=== PATIENT | male | born 1930 | race Caucasian/White ===

== ENCOUNTER 2018-03-06 17:56 | Inpatient (IN) | payer MEDICARE, OTHER ==
[~2018-03-06] VITALS: Ht 170.2 cm; Wt 81.2 kg
--- NOTE | 2018-03-06 17:35 | NUR ---
Admission Note with Justification for Admission to [facility] Patient admitted to [facility] for protective oversight for emergency stabilization of acute psychiatric crisis. Pt admitted from: Hospital ER Mode of arrival: EMS Accompanied By: EMS Precipitating behaviors that initiated intake and admission:hallucinations, confusion Description of failure of out patient attempts at stabilization in previous setting list behavior and medication trials: unknown Behaviors and assessment findings upon admission: calm compliant Plan: Admit for protective oversight for adjustment and stabilization of medications, behaviors and mood. Intense treatment regimen including groups, medication adjustments, therapy, consistent regimen for ADL's, self care, and sleep hygiene. Daily monitoring by Inpatient staff, Psychiatry, and Medical Physician.
[2018-03-06 18:31] VITALS: BP 103/64
[2018-03-06] MEDS ORDERED: OMEP20TA63 PO (19:56)
[2018-03-06] MEDS ORDERED: ASPI-630 PO (19:56)
[2018-03-06] MEDS ORDERED: DONE10TA61 PO (19:56)
[2018-03-06] MEDS ORDERED: ATOR40TA PO (19:56)
[2018-03-06] MEDS ORDERED: CHOL10003 PO (19:56)
[2018-03-06] MEDS ORDERED: QUET25TA5 PO (19:56)
[2018-03-06] MEDS ORDERED: VIT1TABL32 PO (19:56)
[2018-03-06] MEDS ORDERED: VIT1TABL8 PO (19:56)
[2018-03-06] MEDS ORDERED: POTA99TA3 PO (19:56)
[2018-03-06] MEDS ORDERED: CALC500T30 PO (19:56)
[2018-03-06] MEDS ORDERED: LEXAPRO5 MG PO (19:56)
[2018-03-06] MEDS ORDERED: CAPT12.52 PO (19:56)
[2018-03-06] MEDS ORDERED: FERR325T14 PO (19:56)
[2018-03-06] MEDS ORDERED: TIOT18CA IH (19:56)
[2018-03-06] MEDS ORDERED: ESOM40CA PO (19:56)
[2018-03-06] MEDS ORDERED: SPIR25TA5 PO (19:56)
--- NOTE | 2018-03-06 20:01 | HP ---
ADMIT DATE: 03/06/2018 PSYCHIATRIC ADMISSION HISTORY/EVALUATION IDENTIFYING DATA: The patient is an 87-year-old male referred to us from the Emergency Room at [facility] after he presented there from his independent living at [place] on account of increasing confusion, being agitated. Reportedly, he had walked outside. There is independent living apartment close to the street, was delusional, thinks he had to get to the street to get into transportation tube to get to [facility] at [facility]. He is difficult to redirect, has been noncompliant with his medication. Confusion has been worsening in the evening. His behaviors have been deemed dangerous, unmanageable at the [facility], referred to the Emergency Room at [facility] and then sent to us for inpatient psychiatric stabilization. CHIEF COMPLAINT: "I came here today. Yes, I had to get to [facility]." HISTORY OF PRESENT ILLNESS: The patient has a history of sundowning with worsening confusion, more so in the evening. He seems to do a little better during the day. He has had some sleep and appetite changes, but the real concerns of safety involved when he walked to the street, looking for transportation module to transport him to [facility]. No active suicidal or homicidal ideation. No clear history of bipolar disorder. The patient also reports having "violent hallucinations and thinks the mafia is after him." PAST PSYCHIATRIC HISTORY: As above. PAST MEDICAL HISTORY: Hypertension, GERD, COPD, CHF, hypertension, history of GI bleed, history of frontotemporal dementia diagnosis in the fall of 2017, history of supraventricular tachycardia. DRUG ALLERGIES: Negative. DIET: Regular. He walks independently. UA is pending. CURRENT PSYCHOTROPICS: MRAD was reviewed. PRIMARY CARE PHYSICIAN: Dr. Christiansen. FAMILY HISTORY: Noncontributory. SOCIAL HISTORY: The patient was in the [employer] for 23 years and then worked at the [employer] for about 20 years before long term. No alcohol or drug abuse, physical, sexual or elder abuse history is noted. He is not known to be a perpetrator. REACTION TO HOSPITALIZATION: The patient accepting of it. ASSETS: Supportive family, though his is . He does have living arrangements at [facility] at [place]. REVIEW OF SYSTEMS: No CV, , pulmonary, eye, ENT system symptoms on review. MENTAL STATUS EXAMINATION: The patient is oriented to himself and situation. He knew it was 02/10/2018, felt the date was 03/07/2018, knew it was Friday. Speech is coherent. He is somewhat hard of hearing. Abstraction fair. Computation, able to do two steps on serial 7's. Attention span short. Language function intact. Mood somewhat dysphoric, anxious. No active suicidal or homicidal ideation. IMPRESSION: Major neurocognitive disorder, probably vascular with delusion, depression versus mild cognitive impairment, psychotic disorder, unspecified; anxiety disorder, unspecified; impulse control disorder, unspecified. Rest as above. PLAN: Admit to geropsychiatry unit at [facility]. I will see the patient daily individually from a psychiatric standpoint, medical followup with Dr. Da Silva/Dr. Garibay. Continue the patient on his current psychotropics, observe baseline, consider CT head and make further recommendations after baseline assessment. MAN Katlyn HERBERT MD DR: JAN/kristina JOB#: [id number] / [id number]
[2018-03-06] MEDS ORDERED: MAGNESIUM HYDROXIDE 2,400 MG/30 ML ORAL.SUSP. PO PRN (20:30)
[2018-03-06] MEDS ORDERED: METHYL SALICYLATE/MENTHOL TOPICAL OINTMENT 29GM TUBE. TP PRN (20:30)
[2018-03-06] MEDS ORDERED: MAG HYDROX/AL HYDROX/SIMETH 30 ML ORAL.SUSP PO PRN (20:30)
[2018-03-06] MEDS ORDERED: ACETAMINOPHEN 325 MG TABLET PO PRN (20:30)
[2018-03-06] MEDS: QUEtiapine 25 MG TABLET. PO SCH (21:16)
[2018-03-06] MEDS: DONEPEZIL HCL 10 MG TABLET PO SCH (21:16)
[2018-03-06] MEDS: FERROUS SULFATE 325 MG TABLET. PO SCH (21:16)
--- NOTE | 2018-03-06 23:43 | PDOC ---
Exam Note: Musa Note: Please also refer to the separate dictated note~for this date of service dictated separately.~Patient seen individually. Discussed the patient with Nursing staff reviewed the chart.~Reviewed interim history and current functioning. Reviewed vital signs,~Labs/ Radiology~and current medications noted below. Continue current treatment with the changes noted in the dictated addendum note Assessment: Vital Signs: Vital Signs Date Time Temp Pulse Resp B/P (MAP) Pulse Ox O2 Delivery O2 Flow Rate FiO2 03/06/18 18:31 98.7 86 20 103/64 (77) 92 Room Air Current Medications: Meds: Current Medications Calcium Carbonate/ Glycine (Oscal) 500 mg DAILY PO ; Start 03/07/18 at 09:00 Vitamin D (Vitamin D3) 1,000 unit DAILY PO ; Start 03/07/18 at 09:00 Ferrous Sulfate (Feosol) 325 mg BID PO Last administered on 03/06/18at 21:16; Start 03/06/18 at 21:00 Multivitamins/ Minerals (I-Marbin) 1 tab DAILY PO ; Start 03/07/18 at 09:00 Aspirin (Children'S Aspirin) 81 mg DAILYWBKFT PO ; Start 03/07/18 at 08:00 Donepezil HCl (Aricept) 10 mg QHS PO Last administered on 03/06/18at 21:16; Start 03/06/18 at 21:00 Citalopram Hydrobromide (CeleXA) 10 mg DAILY PO ; Start 03/07/18 at 09:00 Pantoprazole Sodium (Protonix) 40 mg DAILYAC PO ; Start 03/07/18 at 07:30 Non-Formulary Medication (Potassium Gluconate ) 99 mg DAILY PO ; Start at 09:00; Stop 03/07/18 at 09:00; Status DC Quetiapine Fumarate (SEROquel) 25 mg HS PO Last administered on 03/06/18at 21: 16; Start 03/06/18 at 21:00 Spironolactone (Aldactone) 25 mg DAILY PO ; Start 03/07/18 at 09:00 Non-Formulary Medication (Tiotropium [place] (Spiriva)) 18 mcg DAILY IH ; Start 03/07/18 at 09:00; Stop 03/07/18 at 09:00; Status DC Acetaminophen (Tylenol) 650 mg PRN Q6HRS PRN PO PAIN / TEMP; Start 03/06/18 at 20:30 Multi-Ingredient Ointment (Analgesic [place]) 1 ema PRN QID PRN TP MUSCLE PAIN; Start 03/06/18 at 20:30 Al Hydroxide/Mg Hydroxide (Mylanta Plus Xs) 15 ml PRN AFTMEALHC PRN PO DYSPEPSIA; Start 03/06/18 at 20:30 Magnesium Hydroxide (Milk Of Magnesia) 2,400 mg PRN QHS PRN PO CONSTIPATION; Start 03/06/18 at 20:30 Albuterol/ Ipratropium (Duoneb) 3 ml RTQID NEB ; Start 03/07/18 at 08:00 Influenza Virus Vaccine (Afluria Trivalent [id number] Syringe) 0.5 ml ONCE ONCE VAX IM ; Start 03/07/18 at 09:00; Stop 03/07/18 at 09:01 Active Scripts Active Reported I-Marbin Tablet (Vit A,C & E/Lutein/Minerals) 1 Each Tablet 1 Each PO Spironolactone 25 Mg Tablet 25 Mg PO DAILY Spiriva (Tiotropium [place]) 18 Mcg Cap.w.dev 18 Mcg IH DAILY Seroquel (Quetiapine Fumarate) 25 Mg Tablet 25 Mg PO HS Potassium Gluconate 99 Mg Tablet 99 Mg PO DAILY Prilosec Otc (Omeprazole Magnesium) 20 Mg Tablet.dr 40 Mg PO DAILY Ferrous Sulfate 325 Mg Tablet 325 Mg PO BID Nexium Capsule (Esomeprazole Magnesium) 40 Mg Capsule.dr 40 Mg PO DAILYAC Lexapro (Escitalopram Oxalate) 5 Mg Tablet 5 Mg PO DAILY Aricept (Donepezil Hcl) 10 Mg Tablet 10 Mg PO HS Vitamin D3 (Cholecalciferol (Vitamin D3)) 1,000 Unit Tablet 1,000 Unit PO DAILY Captopril 12.5 Mg Tablet 12.5 Mg PO TID Calcium (Calcium Carbonate) 500 Mg Tablet 500 Mg PO DAILY Lipitor (Atorvastatin Calcium) 40 Mg Tablet 40 Mg PO QHS Aspirin 81 Mg Tab.chew 81 Mg PO DAILY I have reviewed the current psychotropics carefully including drug interactions. Risk benefit ratio favors no change other than as noted in my dictated progress note. Diagnosis: Problems: (1) Anxiety disorder (2) Dementia of the Alzheimer's type with early onset with behavioral disturbance (3) Dementia, vascular, with delusions (4) Dementia, vascular, with depression (5) Impulse control disorder LÁZARO HERBERT MD Mar 06, 2018 23:43
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
[2018-03-07] MEDS: IPRATRPIUM/ALBUTEROL 0.5/2.5MG 3 ML NEBU. NEB SCH ×4 (05:18→20:07)
[2018-03-07 06:22] VITALS: BP 97/56
[2018-03-07 07:23] LABS: BACTERIA,URINE FEW /HPF (0-FEW); BILIRUBIN,URINE NEG (NEG); CLARITY,URINE CLOUDY; COLOR,URINE YELLOW; GLUCOSE,URINE NEG (NEG); NITRITE,URINE NEG (NEG); RBC,URINE RARE /HPF (0-2); UROBILINOGEN,URINE 0.2 mg/dL (0.2 mg/dL); WBC,URINE >40 /HPF (0-4)
[2018-03-07 08:01] LABS: BASO # 0.1 x10^3/uL (0.0-0.2); BASO % 1 % (0-3); EOS # 0.1 x10^3/uL (0.0-0.7); EOS % 1 % (0-3); HEMOGLOBIN 11.4 g/dL (13.0-17.5); LYMPH # 1.5 x10^3/uL (1.0-4.8); LYMPH % 16 % (24-48); MEAN CORPUSCULAR HEMOGLOBIN 33 pg (25-35); MEAN CORPUSCULAR HGB CONC 34 g/dL (31-37); MEAN CORPUSCULAR VOLUME 99 fL (79-100); MONO # 0.6 x10^3/uL (0.0-1.1); MONO % 7 % (0-9); NEUT % 75 % (31-73); PLATELET COUNT 159 x10^3/uL (140-400); RED BLOOD COUNT 3.44 x10^6/uL (4.30-5.70); RED CELL DISTRIBUTION WIDTH 15.9 % (11.5-14.5); WHITE BLOOD COUNT 9.3 x10^3/uL (4.0-11.0)
[2018-03-07 08:13] LABS: ALBUMIN 3.7 g/dL (3.4-5.0); ALBUMIN/GLOBULIN RATIO 1.1 (1.0-1.7); CALCIUM 8.6 mg/dL (8.5-10.1); CREATININE 1.5 mg/dL (0.7-1.3); GFR 44.2; MAGNESIUM 2.1 mg/dL (1.8-2.4); POTASSIUM 3.6 mmol/L (3.5-5.1); TOTAL BILIRUBIN 0.6 mg/dL (0.2-1.0); TOTAL PROTEIN 7.1 g/dL (6.4-8.2)
[2018-03-07] MEDS: CALCIUM CARBONATE 500 MG TABLET PO SCH (08:34)
[2018-03-07] MEDS: MULTIVITAMIN I-VITE TABLET. PO SCH (08:34)
[2018-03-07] MEDS: SPIRONOLACTONE 25 MG TABLET PO SCH (08:34)
[2018-03-07] MEDS: CHOLECALCIFEROL (VITAMIN D3) 1,000 UNIT TABLET PO SCH (08:34)
[2018-03-07] MEDS: FERROUS SULFATE 325 MG TABLET. PO SCH ×2 (08:34→20:17)
[2018-03-07] MEDS: LISINOPRIL 5 MG TABLET. PO SCH ×2 (08:35→21:00)
[2018-03-07] MEDS: PANTOPRAZOLE 40 MG TABLET. PO SCH (08:35)
[2018-03-07] MEDS: CITALOPRAM 10 MG TABLET. PO SCH (08:35)
[2018-03-07] MEDS: ASPIRIN 81 MG TAB.CHEW PO SCH (08:35)
[2018-03-07] MEDS ORDERED: NON FORMULARY ITEM (Tiotropium Bromide (Spiriva) 18 MCG) IH SCH (09:00)
[2018-03-07] MEDS ORDERED: NON FORMULARY ITEM (Potassium Gluconate 99 MG) PO SCH (09:00)
[2018-03-07 09:46] LABS: PLT ESTIMATE ADEQUATE (ADEQUATE)
[2018-03-07 09:47] LABS: SCHISTOCYTES OCC
--- NOTE | 2018-03-07 09:49 | NUR ---
Behavior Intervention Response and Plan: BIRP Note: Behavior: Assumed Care of patient, patient located in Dining Room at shift change. Patient exhibited the following behavior Calm, Delusions, Compliant. Brief assessment on rounds of vital signs, medication needs, lab studies, and pain. Treatment plan problems . Intervention: Patient assessed and the following interventions initiated safety checks 15 Minute Checks Cognitive Assessment , Head to toe Assessment , Medications. Response: After interactions and interventions patient responded in the following manner, Calm , Compliant ,Withdrawn. Continue to assess behaviors and condition will continue to monitor throughout the shift as needed. Patient educated on ADL's, and hand hygiene. 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 Continue to assess patient for changes in above assessment. Monitor for medication needs, pain, and safety concerns. Hourly rounding performed to ensure safe environment.
[2018-03-07 10:17] LABS: THYROID STIM HORMONE (TSH) 2.188 uIU/mL (0.358-3.740)
--- NOTE | 2018-03-07 10:20 | EKG ---
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
[2018-03-07 14:08] LABS: THYROXINE 5.4 ug/dL (4.5-12.0)
[2018-03-07] MEDS ORDERED: ONDANSETRON ODT 4 MG TAB.RAPDIS PO PRN (15:30)
[2018-03-07 16:49] VITALS: BP 94/57
--- NOTE | 2018-03-07 18:49 | NUR ---
pt up adl to meals. dtr here to see pt at lunch. pt still thinks he has a tube system to the [employer]. Is alert and oriented x3. compliant with meds. Dtr states she went to pt apartment and noted he had several boxes of unopened meds.
[2018-03-07] MEDS: DONEPEZIL HCL 10 MG TABLET PO SCH (20:17)
[2018-03-07] MEDS: QUEtiapine 25 MG TABLET. PO SCH (20:17)
[2018-03-07] MEDS: ATORVASTATIN CALCIUM 20 MG TABLET PO SCH (20:18)
--- NOTE | 2018-03-07 23:09 | PDOC ---
Exam Note: Musa Note: Please also refer to the separate dictated note~for this date of service dictated separately.~Patient seen individually. Discussed the patient with Nursing staff reviewed the chart.~Reviewed interim history and current functioning. Reviewed vital signs,~Labs/ Radiology~and current medications noted below. Continue current treatment with the changes noted in the dictated addendum note Assessment: Vital Signs: Vital Signs Date Time Temp Pulse Resp B/P (MAP) Pulse Ox O2 Delivery O2 Flow Rate FiO2 03/07/18 21:00 81 94/57 03/07/18 20:10 94 Room Air 03/07/18 16:49 98.1 20 I&O Intake and Output 03/07/18 07:00 Intake Total 0 ml Balance 0 ml Intake Oral 0 ml # Voids 1 Labs: Laboratory Tests Test 03/07/18 05:10 03/07/18 07:30 Urine Collection Type Unknown Urine Color Yellow Urine Clarity Cloudy Urine pH 6.0 Urine Specific Art 1.015 Urine Protein Neg (NEG-TRACE) Urine Glucose (UA) Neg mg/dL (NEG) Urine Ketones (Stick) Neg mg/dL (NEG) Urine Blood Small (NEG) Urine Nitrite Neg (NEG) Urine Bilirubin Neg (NEG) Urine Urobilinogen Dipstick 0.2 mg/dL (0.2 mg/dL) Urine Leukocyte Esterase Large (NEG) Urine RBC Rare /HPF (0-2) Urine WBC >40 /HPF (0-4) Urine Squamous Epithelial Cells None /LPF Urine Bacteria Few /HPF (0-FEW) White Blood Count 9.3 x10^3/uL (4.0-11.0) Red Blood Count 3.44 x10^6/uL (4.30-5.70) L Hemoglobin 11.4 g/dL (13.0-17.5) L Hematocrit 34.0 % (39.0-53.0) L Mean Corpuscular Volume 99 fL (79-100) Mean Corpuscular Hemoglobin 33 pg (25-35) Mean Corpuscular Hemoglobin Concent 34 g/dL (31-37) Red Cell Distribution Width 15.9 % (11.5-14.5) H Platelet Count 159 x10^3/uL (140-400) Neutrophils (%) (Auto) 75 % (31-73) H Lymphocytes (%) (Auto) 16 % (24-48) L Monocytes (%) (Auto) 7 % (0-9) Eosinophils (%) (Auto) 1 % (0-3) Basophils (%) (Auto) 1 % (0-3) Neutrophils # (Auto) 7.0 x10^3uL (1.8-7.7) Lymphocytes # (Auto) 1.5 x10^3/uL (1.0-4.8) Monocytes # (Auto) 0.6 x10^3/uL (0.0-1.1) Eosinophils # (Auto) 0.1 x10^3/uL (0.0-0.7) Basophils # (Auto) 0.1 x10^3/uL (0.0-0.2) Platelet Estimate Adequate (ADEQUATE) Crenated Cell Present Schistocytes Occ Sodium Level 137 mmol/L (136-145) Potassium Level 3.6 mmol/L (3.5-5.1) Chloride Level 103 mmol/L (98-107) Carbon Dioxide Level 24 mmol/L (21-32) Anion Gap 10 (6-14) Blood Urea Nitrogen 23 mg/dL (8-26) Creatinine 1.5 mg/dL (0.7-1.3) H Estimated GFR (Cockcroft-Gault) 44.2 BUN/Creatinine Ratio 15 (6-20) Glucose Level 102 mg/dL (70-99) H Calcium Level 8.6 mg/dL (8.5-10.1) Magnesium Level 2.1 mg/dL (1.8-2.4) Iron Level 59 ug/dL (65-175) L Total Iron Binding Capacity 251 ug/dL (250-450) Iron Saturation 24 % (15-34) Total Bilirubin 0.6 mg/dL (0.2-1.0) Aspartate Amino Transferase (AST) 20 U/L (15-37) Alanine Aminotransferase (ALT) 16 U/L (16-63) Alkaline Phosphatase 91 U/L (46-116) Total Protein 7.1 g/dL (6.4-8.2) Albumin 3.7 g/dL (3.4-5.0) Albumin/Globulin Ratio 1.1 (1.0-1.7) Triglycerides Level 43 mg/dL (0-150) Cholesterol Level 129 mg/dL (0-200) LDL Cholesterol, Calculated 62 mg/dL (0-100) VLDL Cholesterol, Calculated 8 mg/dL (0-40) Non-HDL Cholesterol Calculated 70 mg/dL (0-129) HDL Cholesterol 59 mg/dL (40-60) Cholesterol/HDL Ratio 2.0 Thyroid Stimulating Hormone (TSH) 2.188 uIU/mL (0.358-3.740) Thyroxine (T4) 5.4 ug/dL (4.5-12.0) Total Triiodothyronine (TT3) 92 ng/dL (71-180) Current Medications: Meds: Current Medications Calcium Carbonate/ Glycine (Oscal) 500 mg DAILY PO Last administered on 08:34; Start 03/07/18 at 09:00 Vitamin D (Vitamin D3) 1,000 unit DAILY PO Last administered on 03/07/18 08: 34; Start 03/07/18 at 09:00 Ferrous Sulfate (Feosol) 325 mg BID PO Last administered on 03/07/18 20:17; Start 03/06/18 at 21:00 Multivitamins/ Minerals (I-Marbin) 1 tab DAILY PO Last administered on 08:34; Start 03/07/18 at 09:00 Aspirin (Children'S Aspirin) 81 mg DAILYWBKFT PO Last administered on 08:35; Start 03/07/18 at 08:00 Donepezil HCl (Aricept) 10 mg QHS PO Last administered on 03/07/18 20:17; Start 03/06/18 at 21:00 Citalopram Hydrobromide (CeleXA) 10 mg DAILY PO Last administered on 08:35; Start 03/07/18 at 09:00 Pantoprazole Sodium (Protonix) 40 mg DAILYAC PO Last administered on at 08:35; Start 03/07/18 at 07:30 Non-Formulary Medication (Potassium Gluconate ) 99 mg DAILY PO ; Start at 09:00; Stop 03/07/18 at 09:00; Status DC Quetiapine Fumarate (SEROquel) 25 mg HS PO Last administered on 03/07/18at 20: 17; Start 03/06/18 at 21:00 Spironolactone (Aldactone) 25 mg DAILY PO Last administered on 03/07/18at 08:34 ; Start 03/07/18 at 09:00 Non-Formulary Medication (Tiotropium [place] (Spiriva)) 18 mcg DAILY IH ; Start 03/07/18 at 09:00; Stop 03/07/18 at 09:00; Status DC Acetaminophen (Tylenol) 650 mg PRN Q6HRS PRN PO PAIN / TEMP; Start 03/06/18 at 20:30 Multi-Ingredient Ointment (Analgesic [place]) 1 ema PRN QID PRN TP MUSCLE PAIN; Start 03/06/18 at 20:30 Al Hydroxide/Mg Hydroxide (Mylanta Plus Xs) 15 ml PRN AFTMEALHC PRN PO DYSPEPSIA; Start 03/06/18 at 20:30 Magnesium Hydroxide (Milk Of Magnesia) 2,400 mg PRN QHS PRN PO CONSTIPATION; Start 03/06/18 at 20:30 Albuterol/ Ipratropium (Duoneb) 3 ml RTQID NEB Last administered on 03/07/18at 20:07; Start 03/07/18 at 08:00 Influenza Virus Vaccine (Afluria Trivalent [id number] Syringe) 0.5 ml ONCE ONCE VAX IM ; Start 03/07/18 at 09:00; Stop 03/07/18 at 09:01; Status DC Atorvastatin Calcium (Lipitor) 40 mg QHS PO Last administered on 03/07/18at 20: 18; Start 03/07/18 at 21:00 Lisinopril (Prinivil) 5 mg BID PO ; Start 03/07/18 at 09:00 Ondansetron HCl (Zofran Odt) 4 mg PRN Q8HRS PRN PO NAUSEA/VOMITING; Start at 15:30 Active Scripts Active Reported I-Marbin Tablet (Vit A,C & E/Lutein/Minerals) 1 Each Tablet 1 Each PO Spironolactone 25 Mg Tablet 25 Mg PO DAILY Spiriva (Tiotropium [place]) 18 Mcg Cap.w.dev 18 Mcg IH DAILY Seroquel (Quetiapine Fumarate) 25 Mg Tablet 25 Mg PO HS Potassium Gluconate 99 Mg Tablet 99 Mg PO DAILY Prilosec Otc (Omeprazole Magnesium) 20 Mg Tablet.dr 40 Mg PO DAILY Ferrous Sulfate 325 Mg Tablet 325 Mg PO BID Lexapro (Escitalopram Oxalate) 5 Mg Tablet 5 Mg PO DAILY Aricept (Donepezil Hcl) 10 Mg Tablet 10 Mg PO HS Vitamin D3 (Cholecalciferol (Vitamin D3)) 1,000 Unit Tablet 1,000 Unit PO DAILY Captopril 12.5 Mg Tablet 12.5 Mg PO TID Calcium (Calcium Carbonate) 500 Mg Tablet 500 Mg PO DAILY Lipitor (Atorvastatin Calcium) 40 Mg Tablet 40 Mg PO QHS Aspirin 81 Mg Tab.chew 81 Mg PO DAILY I have reviewed the current psychotropics carefully including drug interactions. Risk benefit ratio favors no change other than as noted in my dictated progress note. Diagnosis: Problems: (1) Anxiety disorder (2) Dementia of the Alzheimer's type with early onset with behavioral disturbance (3) Dementia, vascular, with delusions (4) Dementia, vascular, with depression (5) Impulse control disorder LÁZARO HERBERT MD Mar 07, 2018 23:09
[2018-03-07 23:11] LABS: HEMOGLOBIN A1C 5.5 % (4.8-5.6)
--- NOTE | 2018-03-08 00:14 | NUR ---
Pt withdrawn to room at shift change. Pt A/O x3, calm, cooperative, and pleasant. Pt compliant w/meds & assessment.
[2018-03-08] MEDS: IPRATRPIUM/ALBUTEROL 0.5/2.5MG 3 ML NEBU. NEB SCH ×4 (04:59→20:00)
[2018-03-08 06:13] VITALS: BP 95/59
[2018-03-08] MEDS: SPIRONOLACTONE 25 MG TABLET PO SCH (07:50)
[2018-03-08] MEDS: ASPIRIN 81 MG TAB.CHEW PO SCH (07:50)
[2018-03-08] MEDS: PANTOPRAZOLE 40 MG TABLET. PO SCH (07:50)
[2018-03-08] MEDS: CHOLECALCIFEROL (VITAMIN D3) 1,000 UNIT TABLET PO SCH (07:50)
[2018-03-08] MEDS: MULTIVITAMIN I-VITE TABLET. PO SCH (07:50)
[2018-03-08] MEDS: CITALOPRAM 10 MG TABLET. PO SCH (07:50)
[2018-03-08] MEDS: CALCIUM CARBONATE 500 MG TABLET PO SCH (07:50)
[2018-03-08] MEDS: FERROUS SULFATE 325 MG TABLET. PO SCH ×2 (07:50→19:48)
[2018-03-08] MEDS: LISINOPRIL 5 MG TABLET. PO SCH ×2 (07:51→19:49)
--- NOTE | 2018-03-08 09:30 | NUR ---
Behavior Intervention Response and Plan: BIRP Note: Behavior: Assumed Care of patient, patient located in Dining Room at shift change. Patient exhibited the following behavior Calm, Delusions, Compliant. Brief assessment on rounds of vital signs, medication needs, lab studies, and pain. Treatment plan problems . Intervention: Patient assessed and the following interventions initiated safety checks 15 Minute Checks Cognitive Assessment , Head to toe Assessment , Medications. Response: After interactions and interventions patient responded in the following manner, Calm , Compliant ,Withdrawn. Continue to assess behaviors and condition will continue to monitor throughout the shift as needed. Patient educated on ADL's, and hand hygiene. 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 Continue to assess patient for changes in above assessment. Monitor for medication needs, pain, and safety concerns. Hourly rounding performed to ensure safe environment.
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
[2018-03-08 16:45] VITALS: BP 102/64
--- NOTE | 2018-03-08 16:46 | NUR ---
pt up adl to meals. has been withdrawn to room between meals. compliant with meds and cares.
[2018-03-08] MEDS: DONEPEZIL HCL 10 MG TABLET PO SCH (19:48)
[2018-03-08] MEDS: ATORVASTATIN CALCIUM 20 MG TABLET PO SCH (19:48)
[2018-03-08] MEDS: QUEtiapine 25 MG TABLET. PO SCH (19:48)
--- NOTE | 2018-03-08 23:04 | PDOC1 ---
History and Physical Date of Admission: Date of Admission: 03/07/18 Allergies: Allergies: Coded Allergies: No Known Drug Allergies (Unverified , 03/06/18) Current Medications: Current Medications: Current Medications Medications (Trade) Dose Ordered Sig/Fortunato Start Time Stop Time Status Last Admin Dose Admin Acetaminophen (Tylenol) 650 mg PRN Q6HRS PRN 03/06/18 20:30 Al Hydroxide/Mg Hydroxide (Mylanta Plus Xs) 15 ml PRN AFTMEALHC PRN 03/06/18 20:30 Albuterol/ Ipratropium (Duoneb) 3 ml RTQID 03/07/18 08:00 03/08/18 20:00 3 ML Aspirin (Children'S Aspirin) 81 mg DAILYWBKFT 03/07/18 08:00 03/08/18 07:50 81 MG Atorvastatin Calcium (Lipitor) 40 mg QHS 03/07/18 21:00 03/08/18 19:48 40 MG Calcium Carbonate/ Glycine (Oscal) 500 mg DAILY 03/07/18 09:00 03/08/18 07:50 500 MG Citalopram Hydrobromide (CeleXA) 10 mg DAILY 03/07/18 09:00 03/08/18 07:50 10 MG Donepezil HCl (Aricept) 10 mg QHS 03/06/18 21:00 03/08/18 19:48 10 MG Ferrous Sulfate (Feosol) 325 mg BID 03/06/18 21:00 03/08/18 19:48 325 MG Influenza Virus Vaccine (Afluria Trivalent [id number] Syringe) 0.5 ml ONCE ONCE 03/07/18 09:00 03/07/18 09:01 DC Lisinopril (Prinivil) 5 mg BID 03/07/18 09:00 Magnesium Hydroxide (Milk Of Magnesia) 2,400 mg PRN QHS PRN 03/06/18 20:30 Multi-Ingredient Ointment (Analgesic [place]) 1 ema PRN QID PRN 03/06/18 20:30 Multivitamins/ Minerals (I-Marbin) 1 tab DAILY 03/07/18 09:00 03/08/18 07:50 1 TAB Non-Formulary Medication (Potassium Gluconate ) 99 mg DAILY 03/07/18 09:00 03/07/18 09:00 DC Non-Formulary Medication (Tiotropium [place] (Spiriva)) 18 mcg DAILY 03/07/18 09:00 03/07/18 09:00 DC Ondansetron HCl (Zofran Odt) 4 mg PRN Q8HRS PRN 03/07/18 15:30 Pantoprazole Sodium (Protonix) 40 mg DAILYAC 03/07/18 07:30 03/08/18 07:50 40 MG Quetiapine Fumarate (SEROquel) 25 mg HS 03/06/18 21:00 03/08/18 19:48 25 MG Spironolactone (Aldactone) 25 mg DAILY 03/07/18 09:00 03/08/18 07:50 25 MG Vitamin D (Vitamin D3) 1,000 unit DAILY 03/07/18 09:00 03/08/18 07:50 1,000 UNIT ROS: ROS: Constitutional: No fever or chills Eyes: No eye pain or blurred vision Skin: No rash or itching Cardiovascular: No chest pain, syncope, palpitations, dyspnea on exertion, or edema Respiratory: No cough or difficulty breathing Gastrointestinal: No nausea, vomiting, or abdominal pain Neurologic: No headaches or focal neurologic deficits Endocrine: No heat or cold intolerance Genitourinary: No incontinence or hematuria Musculoskeletal: No joint pain or swelling Lymphatics: No enlarged lymph nodes Psychiatric: No anxiety or depression PE: PE: Gen.: Alert, pleasant, no apparent distress HEENT: Normocephalic atraumatic, PERRLA EOMI, no scleral icterus, oral mucosa pink and moist Neck: Supple, no lymphadenopathy, nontender Cardiovascular: Normal S1 and S2 no murmurs Pulmonary: Lungs are clear bilaterally with good air movement no respiratory distress Abdomen: Soft nontender non-distended, bowel sounds present no masses Extremities: No clubbing, cyanosis or edema Neuro: Alert and oriented 3, cranial nerves II through XII grossly intact, no lateralizing neuro deficits Skin: Warm, dry Vitals: Vitals: Vital Signs Date Time Temp Pulse Resp B/P (MAP) Pulse Ox O2 Delivery O2 Flow Rate FiO2 03/08/18 20:28 98 Room Air 03/08/18 19:49 77 102/64 03/08/18 16:45 97.6 20 Labs: Labs: Laboratory Tests Test 03/07/18 05:10 03/07/18 07:30 Urine Collection Type Unknown Urine Color Yellow Urine Clarity Cloudy Urine pH 6.0 Urine Specific [place] 1.015 Urine Protein Neg (NEG-TRACE) Urine Glucose (UA) Neg mg/dL (NEG) Urine Ketones (Stick) Neg mg/dL (NEG) Urine Blood Small (NEG) Urine Nitrite Neg (NEG) Urine Bilirubin Neg (NEG) Urine Urobilinogen Dipstick 0.2 mg/dL (0.2 mg/dL) Urine Leukocyte Esterase Large (NEG) Urine RBC Rare /HPF (0-2) Urine WBC >40 /HPF (0-4) Urine Squamous Epithelial Cells None /LPF Urine Bacteria Few /HPF (0-FEW) White Blood Count 9.3 x10^3/uL (4.0-11.0) Red Blood Count 3.44 x10^6/uL (4.30-5.70) Hemoglobin 11.4 g/dL (13.0-17.5) Hematocrit 34.0 % (39.0-53.0) Mean Corpuscular Volume 99 fL (79-100) Mean Corpuscular Hemoglobin 33 pg (25-35) Mean Corpuscular Hemoglobin Concent 34 g/dL (31-37) Red Cell Distribution Width 15.9 % (11.5-14.5) Platelet Count 159 x10^3/uL (140-400) Neutrophils (%) (Auto) 75 % (31-73) Lymphocytes (%) (Auto) 16 % (24-48) Monocytes (%) (Auto) 7 % (0-9) Eosinophils (%) (Auto) 1 % (0-3) Basophils (%) (Auto) 1 % (0-3) Neutrophils # (Auto) 7.0 x10^3uL (1.8-7.7) Lymphocytes # (Auto) 1.5 x10^3/uL (1.0-4.8) Monocytes # (Auto) 0.6 x10^3/uL (0.0-1.1) Eosinophils # (Auto) 0.1 x10^3/uL (0.0-0.7) Basophils # (Auto) 0.1 x10^3/uL (0.0-0.2) Platelet Estimate Adequate (ADEQUATE) Crenated Cell Present Schistocytes Occ Sodium Level 137 mmol/L (136-145) Potassium Level 3.6 mmol/L (3.5-5.1) Chloride Level 103 mmol/L (98-107) Carbon Dioxide Level 24 mmol/L (21-32) Anion Gap 10 (6-14) Blood Urea Nitrogen 23 mg/dL (8-26) Creatinine 1.5 mg/dL (0.7-1.3) Estimated GFR (Cockcroft-Gault) 44.2 BUN/Creatinine Ratio 15 (6-20) Glucose Level 102 mg/dL (70-99) Hemoglobin A1c 5.5 % (4.8-5.6) Calcium Level 8.6 mg/dL (8.5-10.1) Magnesium Level 2.1 mg/dL (1.8-2.4) Iron Level 59 ug/dL (65-175) Total Iron Binding Capacity 251 ug/dL (250-450) Iron Saturation 24 % (15-34) Total Bilirubin 0.6 mg/dL (0.2-1.0) Aspartate Amino Transf (AST/SGOT) 20 U/L (15-37) Alanine Aminotransferase (ALT/SGPT) 16 U/L (16-63) Alkaline Phosphatase 91 U/L (46-116) Total Protein 7.1 g/dL (6.4-8.2) Albumin 3.7 g/dL (3.4-5.0) Albumin/Globulin Ratio 1.1 (1.0-1.7) Triglycerides Level 43 mg/dL (0-150) Cholesterol Level 129 mg/dL (0-200) LDL Cholesterol, Calculated 62 mg/dL (0-100) VLDL Cholesterol, Calculated 8 mg/dL (0-40) Non-HDL Cholesterol Calculated 70 mg/dL (0-129) HDL Cholesterol 59 mg/dL (40-60) Cholesterol/HDL Ratio 2.0 Thyroid Stimulating Hormone (TSH) 2.188 uIU/mL (0.358-3.740) Thyroxine (T4) 5.4 ug/dL (4.5-12.0) Total Triiodothyronine 92 ng/dL (71-180) ROBERTO RUSSO DO Mar 08, 2018 23:04
--- NOTE | 2018-03-08 23:11 | PDOC ---
Exam Note: Musa Note: Please also refer to the separate dictated note~for this date of service dictated separately.~Patient seen individually. Discussed the patient with Nursing staff reviewed the chart.~Reviewed interim history and current functioning. Reviewed vital signs,~Labs/ Radiology~and current medications noted below. Continue current treatment with the changes noted in the dictated addendum note Assessment: Vital Signs: Vital Signs Date Time Temp Pulse Resp B/P (MAP) Pulse Ox O2 Delivery O2 Flow Rate FiO2 03/08/18 20:28 98 Room Air 03/08/18 19:49 77 102/64 03/08/18 16:45 97.6 20 I&O Intake and Output 03/08/18 07:00 Intake Total 1080 ml Balance 1080 ml Intake Oral 1080 ml Current Medications: Meds: Current Medications Calcium Carbonate/ Glycine (Oscal) 500 mg DAILY PO Last administered on 07:50; Start 03/07/18 at 09:00 Vitamin D (Vitamin D3) 1,000 unit DAILY PO Last administered on 03/08/18 07: 50; Start 03/07/18 at 09:00 Ferrous Sulfate (Feosol) 325 mg BID PO Last administered on 03/08/18 19:48; Start 03/06/18 at 21:00 Multivitamins/ Minerals (I-Marbin) 1 tab DAILY PO Last administered on 07:50; Start 03/07/18 at 09:00 Aspirin (Children'S Aspirin) 81 mg DAILYWBKFT PO Last administered on at 07:50; Start 03/07/18 at 08:00 Donepezil HCl (Aricept) 10 mg QHS PO Last administered on 03/08/18at 19:48; Start 03/06/18 at 21:00 Citalopram Hydrobromide (CeleXA) 10 mg DAILY PO Last administered on 07:50; Start 03/07/18 at 09:00 Pantoprazole Sodium (Protonix) 40 mg DAILYAC PO Last administered on at 07:50; Start 03/07/18 at 07:30 Non-Formulary Medication (Potassium Gluconate ) 99 mg DAILY PO ; Start at 09:00; Stop 03/07/18 at 09:00; Status DC Quetiapine Fumarate (SEROquel) 25 mg HS PO Last administered on 03/08/18at 19: 48; Start 03/06/18 at 21:00 Spironolactone (Aldactone) 25 mg DAILY PO Last administered on 03/08/18at 07:50 ; Start 03/07/18 at 09:00 Non-Formulary Medication (Tiotropium [place] (Spiriva)) 18 mcg DAILY IH ; Start 03/07/18 at 09:00; Stop 03/07/18 at 09:00; Status DC Acetaminophen (Tylenol) 650 mg PRN Q6HRS PRN PO PAIN / TEMP; Start 03/06/18 at 20:30 Multi-Ingredient Ointment (Analgesic [place]) 1 ema PRN QID PRN TP MUSCLE PAIN; Start 03/06/18 at 20:30 Al Hydroxide/Mg Hydroxide (Mylanta Plus Xs) 15 ml PRN AFTMEALHC PRN PO DYSPEPSIA; Start 03/06/18 at 20:30 Magnesium Hydroxide (Milk Of Magnesia) 2,400 mg PRN QHS PRN PO CONSTIPATION; Start 03/06/18 at 20:30 Albuterol/ Ipratropium (Duoneb) 3 ml RTQID NEB Last administered on 03/08/18at 20:00; Start 03/07/18 at 08:00 Influenza Virus Vaccine (Afluria Trivalent [id number] Syringe) 0.5 ml ONCE ONCE VAX IM ; Start 03/07/18 at 09:00; Stop 03/07/18 at 09:01; Status DC Atorvastatin Calcium (Lipitor) 40 mg QHS PO Last administered on 03/08/18at 19: 48; Start 03/07/18 at 21:00 Lisinopril (Prinivil) 5 mg BID PO ; Start 03/07/18 at 09:00 Ondansetron HCl (Zofran Odt) 4 mg PRN Q8HRS PRN PO NAUSEA/VOMITING; Start at 15:30 Active Scripts Active Reported I-Marbin Tablet (Vit A,C & E/Lutein/Minerals) 1 Each Tablet 1 Each PO Spironolactone 25 Mg Tablet 25 Mg PO DAILY Spiriva (Tiotropium [place]) 18 Mcg Cap.w.dev 18 Mcg IH DAILY Seroquel (Quetiapine Fumarate) 25 Mg Tablet 25 Mg PO HS Potassium Gluconate 99 Mg Tablet 99 Mg PO DAILY Prilosec Otc (Omeprazole Magnesium) 20 Mg Tablet.dr 40 Mg PO DAILY Ferrous Sulfate 325 Mg Tablet 325 Mg PO BID Lexapro (Escitalopram Oxalate) 5 Mg Tablet 5 Mg PO DAILY Aricept (Donepezil Hcl) 10 Mg Tablet 10 Mg PO HS Vitamin D3 (Cholecalciferol (Vitamin D3)) 1,000 Unit Tablet 1,000 Unit PO DAILY Captopril 12.5 Mg Tablet 12.5 Mg PO TID Calcium (Calcium Carbonate) 500 Mg Tablet 500 Mg PO DAILY Lipitor (Atorvastatin Calcium) 40 Mg Tablet 40 Mg PO QHS Aspirin 81 Mg Tab.chew 81 Mg PO DAILY I have reviewed the current psychotropics carefully including drug interactions. Risk benefit ratio favors no change other than as noted in my dictated progress note. 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
--- NOTE | 2018-03-09 00:56 | NUR ---
Nursing Note Pt pleasant calm and cooperative. Pt showers with min assist with 1 tech this pm. Was complaining about not being able to perform his own shower and clothing says "I have been getting dressed for about 87 years on my own I think I can handle it." He is smiling when he says these things and begs me not to tell the tech that was helping him.
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
[2018-03-09] MEDS: IPRATRPIUM/ALBUTEROL 0.5/2.5MG 3 ML NEBU. NEB SCH ×4 (05:25→20:18)
[2018-03-09 06:12] VITALS: BP 112/57
[2018-03-09] MEDS: PANTOPRAZOLE 40 MG TABLET. PO SCH (07:45)
[2018-03-09] MEDS: CHOLECALCIFEROL (VITAMIN D3) 1,000 UNIT TABLET PO SCH (07:57)
[2018-03-09] MEDS: CALCIUM CARBONATE 500 MG TABLET PO SCH (07:58)
[2018-03-09] MEDS: MULTIVITAMIN I-VITE TABLET. PO SCH (07:58)
[2018-03-09] MEDS: CITALOPRAM 10 MG TABLET. PO SCH (07:58)
[2018-03-09] MEDS: FERROUS SULFATE 325 MG TABLET. PO SCH ×2 (07:58→19:27)
[2018-03-09] MEDS: ASPIRIN 81 MG TAB.CHEW PO SCH (07:58)
[2018-03-09] MEDS ORDERED: SMZ/TMP 800/160MG TABLET. PO SCH (09:00)
[2018-03-09] MEDS: SPIRONOLACTONE 25 MG TABLET PO SCH (09:00)
[2018-03-09 11:25] VITALS: BP 110/72
[2018-03-09] MEDS: LISINOPRIL 5 MG TABLET. PO SCH ×2 (11:54→19:28)
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
[2018-03-09 15:41] VITALS: BP 94/55
[2018-03-09] MEDS: CETIRIZINE HCL 10 MG TABLET PO SCH (15:47)
[2018-03-09] MEDS: CHOLECALCIFEROL (VITAMIN D3) 50,000 UNIT CAPSULE PO SCH (15:47)
--- NOTE | 2018-03-09 15:52 | NUR ---
Psychosocial Assessment Admit Date: 03/06/2018 Psychiatrist: None Medical Physician: Dr. Christiansen Assessment Informants: Self and shireen Cook Sex of Patient: M Race: Age: 87 Living Situation: [facility] Ind. Living Plans For Return: [facility] - Higher Level of Care Legal status: DPOA Name of Legally Responsible Person: shireen Cook Contacts: Name: Marina Long [phone] Family Background and Relationships Marital status: Pt. his first . His second within the past year. Pt. reports it was a very stressful relationship and didn't feel like he ever did anything right. Marital (Cohabitation)/Sexual Orientation Issues: Heterosexual Family support And their Participation in therapy: Family plans to participate in therapy, discharge plans, and other decisions as needed. Personal Background Education History: Pt. received a GED and did some college coursework through the [employer]. Vocational History: [employer] and [employer]ust[employer]ial History of Legal Difficulties: None Known Preferred Leisure Activities: Pt. enjoys photography and shooting handguns. Spiritual/Baptism Involvement: Pt. was baptized Restorationist. He stated he believes in God, talks to God, and God talks to him. His daughter reports pt. believes God calls him on his cell phone and tells him to do things. 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 Financial Situation: Pt. receives between $4200 - $4300 from his two retirements and $300 from Social Security. He also has a money market account and has a substantial life insurance policy. Resources: Medicare [place] and Financial Problems/Needs: None Known Libertarian Responsible for Handling Patient's Finances: Shireen Cook Historical Data Childhood History: PT. was born in [place] but later moved to [place]. He said he got along alright, hated school, but had a pretty normal childhood along with his two sisters. Cultural/Spiritual History Factors that may impact treatment: None Known History of Sexual/Physical Abuse of Neglect: None History of Substance Abuse: Pt. reports he drinks two beers a day, every day. His last reported use was 03/05/2018. Substance Abuse/Chemical Dependency Assessment was done and filed in pt. chart. Psychiatric History: Pt. daughter was not sure when pt. first showed signs of dementia but stated things have been worse since before 2016. She went on to share prior to this, pt. could recognize times when he was confused and could be reasoned with. He now truly believes in his delusional thinking. Presenting Problems Presenting Problems/Criteria for admission: Pt. was confused, agitated, walked outside close to street, delusional, and thinks he has to get outside to go into a tube (transport system) to get to [place] to the [facility]. Patient's Current Strengths: Verbal and Good Family Support Patient's Current Weaknesses: Non medication compliant and is having delusional thinking. Social Work Treatment Plan Identified Problems 1.) Delusional Thinking 2.) Won't take medications on his own 3.) Agitated Goals for Treatment: Pt. will learn coping skills to deal with his frustrations and finding adequate placement for discharge. Family Goals for Treatment: "My hope is he gets a more supervised place." Social work Intervention: Group therapy per week:2-5x To increase positive, calm feelings. To Increase Socialization. To Teach and Practice Effective coping skills in a social setting. Individual Therapy Per Week: As needed. Using validation to increase calm and positive feelings. To encourage self-expression. To work on grief/loss and adjustment issues. To teach and practice effective coping skills. To educate about diagnoses, team recommendations etc.. Family Support and Education: As needed. Support family grief/adjustment process. Educate about Psychiatric/Behavioral problems and treatment recommendations. Patient's Educational Needs to be addressed in Treatment: Diagnosis, Treatment plan, Medication and Discharge Planning. Initial Discharge Plan: Staff will monitor medications and behaviors of pt. and meet as a multidisciplinary team on 03/12/2018. Plan for communication of Psychiatric Follow up and Continuing Care Instructions to family and Care Givers: Written and verbal communication. Additional: Pt. daughter shared that pt. has called the police on a couple of different occasions at his prior residence. He believes he bought a van for $10,000, which the streetcar repairer did not bring him and another time believed someone was on his balcony. She shared pt. can become tearful when, in his delusions, believes someone has but was upset with himself that he didn't become upset when his . Pt. also believes his daughter has taken money from him and sold some of his guns. He bought another gun in November and has it in a safety deposit box in the bank, which is not loaded and it is believed he does not currently have ammunition for it.
--- NOTE | 2018-03-09 16:06 | NUR ---
Pt calm, cooperative, med compliant, somewhat withdrawn, out in the day room in the afternoon. Received a phone call in the afternoon. Dr. Da Silva determined pt does not have UTI but put pt on Augmentin for sinus infection and Zyrtec as pt c/o pain d/t thick yellow drainage at night and fullness/stuffiness in his ears.
--- NOTE | 2018-03-09 16:12 | NUR ---
Behavior Intervention Response and Plan: BIRP Note: Behavior: Assumed Care of patient, patient located in Dining Room at shift change. Patient exhibited the following behavior Calm, Compliant, Cooperative. Brief assessment on rounds of vital signs, medication needs, lab studies, and pain. Treatment plan problems dementia w/ bd and fall risk. Intervention: Patient assessed and the following interventions initiated safety checks 15 Minute Checks Head to toe Assessment , Cognitive Assessment , Medications. Response: After interactions and interventions patient responded in the following manner, Calm , Compliant ,Calm. Continue to assess behaviors and condition will continue to monitor throughout the shift as needed. Patient educated on ADL's, and hand hygiene. 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 Continue to assess patient for changes in above assessment. Monitor for medication needs, pain, and safety concerns. Hourly rounding performed to ensure safe environment.
[2018-03-09] MEDS: DONEPEZIL HCL 10 MG TABLET PO SCH ×2 (19:26→20:34)
[2018-03-09] MEDS: ATORVASTATIN CALCIUM 20 MG TABLET PO SCH ×2 (19:28→20:34)
[2018-03-09] MEDS: LACTOBACILLUS RHAMNOSUS GG 1 CAPSULE. PO SCH (20:37)
[2018-03-09] MEDS: AMOXICILLIN/K CLAV 500/125MG TABLET. PO SCH (20:37)
[2018-03-09] MEDS ORDERED: QUEtiapine 25 MG TABLET. PO SCH (21:00)
--- NOTE | 2018-03-09 21:00 | NUR ---
Nursing note: Assumed care of pt in his room. He was in bed but awake, Pt is pleasant, cooperative, and compliant. Meds taken whole, pt alert to self, place, and year. No c/o pain.
--- NOTE | 2018-03-09 21:46 | PN ---
DATE: 03/08/2018 PSYCHIATRIC PROGRESS NOTE This late entry 03/08/2018 covers elements not covered in my initial note. SUBJECTIVE: I met with the patient in the evening. The patient slept 7-1/4 hours previous evening. He remains somewhat withdrawn, was seated in his room with the lights off. As I entered the room, he was talking when no one was in his room. He quickly said "I am not crazy." He said he often talks aloud his thought so that he can have help clear the thinking and trying to come to toolroom helper to what prompted this admission including his perception that he is going to travel in the tube to [facility]. Processed this with him. REVIEW OF SYSTEMS: No CV, , pulmonary, eye, ENT system symptoms on review. MENTAL STATUS EXAM: Oriented to himself and situation. Speech is coherent, abstraction fair, computation impaired, language function intact, attention span short. Mood and affect somewhat labile, at times anxious. LABORATORY DATA: Reviewed. IMPRESSION: Major neurocognitive disorder, early Alzheimer, vascular with delusion, depression. Rest unchanged. PLAN: Continue current psychotropics, may need to increase Seroquel in due course. MAN Katlyn HERBERT MD DR: JAN/kristina JOB#: [id number] / [id number]
--- NOTE | 2018-03-09 23:12 | PDOC ---
Exam Note: [facility]a Note: Please also refer to the separate dictated note~for this date of service dictated separately.~Patient seen individually. Discussed the patient with Nursing staff reviewed the chart.~Reviewed interim history and current functioning. Reviewed vital signs,~Labs/ Radiology~and current medications noted below. Continue current treatment with the changes noted in the dictated addendum note Assessment: Vital Signs: Vital Signs Date Time Temp Pulse Resp B/P (MAP) Pulse Ox O2 Delivery O2 Flow Rate FiO2 03/09/18 20:19 96 Room Air 03/09/18 19:28 82 94/55 03/09/18 15:41 97.8 20 I&O Intake and Output 03/09/18 07:00 Intake Total 1080 ml Balance 1080 ml Intake Oral 1080 ml Current Medications: Meds: Current Medications Calcium Carbonate/ Glycine (Oscal) 500 mg DAILY PO Last administered on 07:58; Start 03/07/18 at 09:00 Vitamin D (Vitamin D3) 1,000 unit DAILY PO Last administered on 03/09/18 07: 57; Start 03/07/18 at 09:00 Ferrous Sulfate (Feosol) 325 mg BID PO Last administered on 03/09/18 19:27; Start 03/06/18 at 21:00 Multivitamins/ Minerals (I-Marbin) 1 tab DAILY PO Last administered on 07:58; Start 03/07/18 at 09:00 Aspirin (Children'S Aspirin) 81 mg DAILYWBKFT PO Last administered on at 07:58; Start 03/07/18 at 08:00 Donepezil HCl (Aricept) 10 mg QHS PO Last administered on 03/09/18at 20:34; Start 03/06/18 at 21:00 Citalopram Hydrobromide (CeleXA) 10 mg DAILY PO Last administered on 07:58; Start 03/07/18 at 09:00 Pantoprazole Sodium (Protonix) 40 mg DAILYAC PO Last administered on at 07:45; Start 03/07/18 at 07:30 Non-Formulary Medication (Potassium Gluconate ) 99 mg DAILY PO ; Start at 09:00; Stop 03/07/18 at 09:00; Status DC Quetiapine Fumarate (SEROquel) 25 mg HS PO Last administered on 03/08/18at 19: 48; Start 03/06/18 at 21:00; Stop 03/09/18 at 16:27; Status DC Spironolactone (Aldactone) 25 mg DAILY PO Last administered on 03/08/18at 07:50 ; Start 03/07/18 at 09:00 Non-Formulary Medication (Tiotropium [place] (Spiriva)) 18 mcg DAILY IH ; Start 03/07/18 at 09:00; Stop 03/07/18 at 09:00; Status DC Acetaminophen (Tylenol) 650 mg PRN Q6HRS PRN PO PAIN / TEMP; Start 03/06/18 at 20:30 Multi-Ingredient Ointment (Analgesic [place]) 1 ema PRN QID PRN TP MUSCLE PAIN; Start 03/06/18 at 20:30 Al Hydroxide/Mg Hydroxide (Mylanta Plus Xs) 15 ml PRN AFTMEALHC PRN PO DYSPEPSIA; Start 03/06/18 at 20:30 Magnesium Hydroxide (Milk Of Magnesia) 2,400 mg PRN QHS PRN PO CONSTIPATION; Start 03/06/18 at 20:30 Albuterol/ Ipratropium (Duoneb) 3 ml RTQID NEB Last administered on 03/09/18at 20:18; Start 03/07/18 at 08:00 Influenza Virus Vaccine (Afluria Trivalent [id number] Syringe) 0.5 ml ONCE ONCE VAX IM ; Start 03/07/18 at 09:00; Stop 03/07/18 at 09:01; Status DC Atorvastatin Calcium (Lipitor) 40 mg QHS PO Last administered on 03/09/18at 20: 34; Start 03/07/18 at 21:00 Lisinopril (Prinivil) 5 mg BID PO Last administered on 03/09/18at 11:54; Start 03/07/18 at 09:00 Ondansetron HCl (Zofran Odt) 4 mg PRN Q8HRS PRN PO NAUSEA/VOMITING; Start at 15:30 Trimethoprim/ Sulfamethoxazole (Bactrim Ds) 1 tab BID PO Last administered on 03/09/18at 07:59; Start 03/09/18 at 09:00; Stop 03/09/18 at 14:08; Status DC Amoxicillin/ Clavulanate Potassium (Augmentin 500/ 125mg) 1 tab BID PO Last administered on 03/09/18at 20:37; Start 03/09/18 at 21:00; Stop 03/19/18 at 20: 59 Cetirizine HCl (ZyrTEC) 10 mg DAILY PO Last administered on 03/09/18at 15:47; Start 03/09/18 at 15:00 Vitamin D (Vitamin D3) 50,000 unit WEEKLY PO Last administered on 03/09/18at 15 :47; Start 03/09/18 at 15:00 Lactobacillus Rhamnosus (Culturelle) 1 cap BID PO Last administered on at 20:37; Start 03/09/18 at 21:00 Quetiapine Fumarate (SEROquel) 37.5 mg HS PO Last administered on 03/09/18at 20 :37; Start 03/09/18 at 21:00 Active Scripts Active Reported I-Marbin Tablet (Vit A,C & E/Lutein/Minerals) 1 Each Tablet 1 Each PO Spironolactone 25 Mg Tablet 25 Mg PO DAILY Spiriva (Tiotropium [place]) 18 Mcg Cap.w.dev 18 Mcg IH DAILY Seroquel (Quetiapine Fumarate) 25 Mg Tablet 25 Mg PO HS Potassium Gluconate 99 Mg Tablet 99 Mg PO DAILY Prilosec Otc (Omeprazole Magnesium) 20 Mg Tablet.dr 40 Mg PO DAILY Ferrous Sulfate 325 Mg Tablet 325 Mg PO BID Lexapro (Escitalopram Oxalate) 5 Mg Tablet 5 Mg PO DAILY Aricept (Donepezil Hcl) 10 Mg Tablet 10 Mg PO HS Vitamin D3 (Cholecalciferol (Vitamin D3)) 1,000 Unit Tablet 1,000 Unit PO DAILY Captopril 12.5 Mg Tablet 12.5 Mg PO TID Calcium (Calcium Carbonate) 500 Mg Tablet 500 Mg PO DAILY Lipitor (Atorvastatin Calcium) 40 Mg Tablet 40 Mg PO QHS Aspirin 81 Mg Tab.chew 81 Mg PO DAILY I have reviewed the current psychotropics carefully including drug interactions. Risk benefit ratio favors no change other than as noted in my dictated progress note. 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
[2018-03-10] MEDS: IPRATRPIUM/ALBUTEROL 0.5/2.5MG 3 ML NEBU. NEB SCH ×4 (06:33→20:43)
[2018-03-10 06:35] VITALS: BP 92/54
[2018-03-10] MEDS: PANTOPRAZOLE 40 MG TABLET. PO SCH (07:53)
[2018-03-10] MEDS: ASPIRIN 81 MG TAB.CHEW PO SCH (07:53)
[2018-03-10] MEDS: SPIRONOLACTONE 25 MG TABLET PO SCH (07:54)
[2018-03-10] MEDS: AMOXICILLIN/K CLAV 500/125MG TABLET. PO SCH ×2 (07:54→19:18)
[2018-03-10] MEDS: CITALOPRAM 10 MG TABLET. PO SCH (07:55)
[2018-03-10] MEDS: FERROUS SULFATE 325 MG TABLET. PO SCH ×2 (07:55→19:18)
[2018-03-10] MEDS: LACTOBACILLUS RHAMNOSUS GG 1 CAPSULE. PO SCH ×2 (07:55→19:18)
[2018-03-10] MEDS: LISINOPRIL 5 MG TABLET. PO SCH ×2 (07:56→19:19)
[2018-03-10] MEDS: CALCIUM CARBONATE 500 MG TABLET PO SCH (07:56)
[2018-03-10] MEDS: MULTIVITAMIN I-VITE TABLET. PO SCH (07:56)
[2018-03-10] MEDS: CHOLECALCIFEROL (VITAMIN D3) 1,000 UNIT TABLET PO SCH (07:57)
[2018-03-10] MEDS: CETIRIZINE HCL 10 MG TABLET PO SCH (07:57)
--- NOTE | 2018-03-10 10:01 | PN ---
DATE: 03/09/2018 SUBJECTIVE: The patient is an 87-year-old male patient whom I have seen today at the request of the nursing staff as he is complaining of sinus drainage and pressure in his sinuses, also complained of headache and also yellowish drainage, but denied any fever. OBJECTIVE: GENERAL: When I examined him, he looked well and was clearly in no apparent respiratory distress, pale, but no jaundice, cyanosis, lymphadenopathy or thyromegaly. No jugular venous distention. No limb edema. VITAL SIGNS: Her heart rate was 87, blood pressure 110/72, temperature was 97.7, respiratory rate was 18 and oxygen saturation was 96%. HEAD, EYES, EARS, NOSE AND THROAT: Normocephalic, atraumatic. Examination of his face showed no evidence tenderness in his frontal, maxillary or mastoid air cells. NECK: Supple. HEART: Showed normal first and second heart sounds. No gallop, rub or murmur. CHEST: Clear to auscultation. No crepitation or rhonchi. ABDOMEN: Distended, soft, nontender. No guarding or rigidity. No organomegaly. Hernial orifice intact. Bowel sounds normal. NEUROLOGIC: He was awake, alert, responding appropriately. Extraocular movements intact. He moves extremities without difficulty, ambulates without assistance or assistive devices. LABORATORY DATA: Showed a white cell count 9300, hemoglobin 11, hematocrit 34, MCV 99 and platelet count of 159,000. His chemistry showed that his 25-hydroxy vitamin D was 29 ng/mL. ASSESSMENT: Frontomaxillary sinusitis with a postnasal drip for which I started him on Augmentin 500 mg/125 one tablet twice a day with food for 10 days. I discontinued his Bactrim as his urine culture showed ____ growth of 25-50 thousand. Also added Zyrtec 10 mg once a day and for vitamin D deficiency, I start him on cholecalciferol 10,000 international units once a day. MIGUEL MALIK MD DR: PAUL/kristina JOB#: [id number] / [id number]
--- NOTE | 2018-03-10 14:30 | NUR ---
Assumed care of pt @ approx 0700. Pt was sitting up in a chair in his room fully dressed, neat and clean at the time of our initial encounter. Pt A/O x 2-3, very pleasant and cooperative. Denies pain. Compliant w/medications taken whole with water. Joked w/staff. No signs of hallucinations, delusions, or paranoia noted so far this shift. No inappropriate behaviors. Pt has remained withdrawn to his room most of the shift. Currently sitting in his room quietly - no needs voiced @ this time. Will continue to monitor and assist pt in working towards his treatment and discharge goals.
[2018-03-10 16:08] VITALS: BP 95/58
[2018-03-10] MEDS: DONEPEZIL HCL 10 MG TABLET PO SCH (19:17)
[2018-03-10] MEDS: ATORVASTATIN CALCIUM 20 MG TABLET PO SCH (19:18)
[2018-03-10] MEDS: QUEtiapine 50 MG TABLET. PO SCH (19:51)
--- NOTE | 2018-03-10 20:41 | NUR ---
Nursing note; Assumed care of pt in his room. He was lying in bed but easily aroused. He was pleasant and compliant taking his meds whole. He was interactive and A&OX3. He is still withdrawn. No c/o pain and also no hallucinations at this time.
--- NOTE | 2018-03-10 21:35 | PN ---
DATE: 03/09/2018 PSYCHIATRIC PROGRESS NOTE This late entry 03/09/2018 covers elements not covered in my initial note. SUBJECTIVE: I met with the patient in the evening. I met with him in his room. UA is unremarkable. Bactrim was discontinued. He started on Augmentin for sinusitis per Dr. Da Silva along with Zyrtec and vitamin D3. He has been withdrawn. As I stood outside his room, he had his lights off in his room, was constantly talking, but again stated he did not have any hallucinations, just feels that to talk his thoughts out so that he can resolve conflicts. REVIEW OF SYSTEMS: No CV, , pulmonary, eye, ENT system symptoms on review. MENTAL STATUS EXAM: Oriented to himself and situation. Speech coherent, at times pressured. Abstraction fair, computation impaired, language function intact, attention span short. Mood and affect remain somewhat anxious at times. LABORATORY DATA: Reviewed. IMPRESSION: Major neurocognitive disorder, Alzheimer, vascular with delusion, depression, psychotic disorder, unspecified; anxiety disorder, unspecified. PLAN: As I met with him, he talked at length about the hallucinations he had at [place], which told him that he needed to go to a specific place on the sidewalk to wait for the capsule to take him to [facility]. He states that seemed very real to him and he does not know what he do differently the next time he has that. We discussed options of him going, telling the nursing staff and following what they said rather than going by what he perceives. Some of his concerns are understandable. From a psychiatric standpoint, we will increase the Seroquel from 25 at bedtime to 37.5 mg at bedtime. Treat the sinusitis. Rest unchanged from initial note. No CV, , pulmonary, eye system symptoms on review. Reasonably oriented to himself and situation. Speech is coherent, abstraction fair, computation impaired, language function intact. Short term memory is impaired. No suicidal or homicidal ideation. MAN Katlyn HERBERT MD DR: JAN/kristina JOB#: [id number] / [id number]
--- NOTE | 2018-03-10 23:12 | PDOC ---
Exam Note: [facility] Note: Please also refer to the separate dictated note~for this date of service dictated separately.~Patient seen individually. Discussed the patient with Nursing staff reviewed the chart.~Reviewed interim history and current functioning. Reviewed vital signs,~Labs/ Radiology~and current medications noted below. Continue current treatment with the changes noted in the dictated addendum note Assessment: Vital Signs: Vital Signs Date Time Temp Pulse Resp B/P (MAP) Pulse Ox O2 Delivery O2 Flow Rate FiO2 03/10/18 19:25 97 Room Air 03/10/18 19:19 68 95/58 03/10/18 16:08 97.2 17 I&O Intake and Output 03/10/18 07:00 Intake Total 1080 ml Balance 1080 ml Intake Oral 1080 ml # Voids 1 Current Medications: Meds: Current Medications Calcium Carbonate/ Glycine (Oscal) 500 mg DAILY PO Last administered on 07:56; Start 03/07/18 at 09:00 Vitamin D (Vitamin D3) 1,000 unit DAILY PO Last administered on 03/10/18 07: 57; Start 03/07/18 at 09:00 Ferrous Sulfate (Feosol) 325 mg BID PO Last administered on 03/10/18 19:18; Start 03/06/18 at 21:00 Multivitamins/ Minerals (I-Marbin) 1 tab DAILY PO Last administered on 07:56; Start 03/07/18 at 09:00 Aspirin (Children'S Aspirin) 81 mg DAILYWBKFT PO Last administered on 07:53; Start 03/07/18 at 08:00 Donepezil HCl (Aricept) 10 mg QHS PO Last administered on 03/10/18 19:17; Start 03/06/18 at 21:00 Citalopram Hydrobromide (CeleXA) 10 mg DAILY PO Last administered on 07:55; Start 03/07/18 at 09:00 Pantoprazole Sodium (Protonix) 40 mg DAILYAC PO Last administered on 07:53; Start 03/07/18 at 07:30 Non-Formulary Medication (Potassium Gluconate ) 99 mg DAILY PO ; Start at 09:00; Stop 03/07/18 at 09:00; Status DC Quetiapine Fumarate (SEROquel) 25 mg HS PO Last administered on 03/08/18at 19: 48; Start 03/06/18 at 21:00; Stop 03/09/18 at 16:27; Status DC Spironolactone (Aldactone) 25 mg DAILY PO Last administered on 03/08/18at 07:50 ; Start 03/07/18 at 09:00 Non-Formulary Medication (Tiotropium [place] (Spiriva)) 18 mcg DAILY IH ; Start 03/07/18 at 09:00; Stop 03/07/18 at 09:00; Status DC Acetaminophen (Tylenol) 650 mg PRN Q6HRS PRN PO PAIN / TEMP; Start 03/06/18 at 20:30 Multi-Ingredient Ointment (Analgesic [place]) 1 ema PRN QID PRN TP MUSCLE PAIN; Start 03/06/18 at 20:30 Al Hydroxide/Mg Hydroxide (Mylanta Plus Xs) 15 ml PRN AFTMEALHC PRN PO DYSPEPSIA; Start 03/06/18 at 20:30 Magnesium Hydroxide (Milk Of Magnesia) 2,400 mg PRN QHS PRN PO CONSTIPATION; Start 03/06/18 at 20:30 Albuterol/ Ipratropium (Duoneb) 3 ml RTQID NEB Last administered on 03/10/18at 20:43; Start 03/07/18 at 08:00 Influenza Virus Vaccine (Afluria Trivalent [id number] Syringe) 0.5 ml ONCE ONCE VAX IM ; Start 03/07/18 at 09:00; Stop 03/07/18 at 09:01; Status DC Atorvastatin Calcium (Lipitor) 40 mg QHS PO Last administered on 03/10/18at 19: 18; Start 03/07/18 at 21:00 Lisinopril (Prinivil) 5 mg BID PO Last administered on 03/09/18at 11:54; Start 03/07/18 at 09:00 Ondansetron HCl (Zofran Odt) 4 mg PRN Q8HRS PRN PO NAUSEA/VOMITING; Start at 15:30 Trimethoprim/ Sulfamethoxazole (Bactrim Ds) 1 tab BID PO Last administered on 03/09/18at 07:59; Start 10/29/18 at 09:00; Stop 03/09/18 at 14:08; Status DC Amoxicillin/ Clavulanate Potassium (Augmentin 500/ 125mg) 1 tab BID PO Last administered on 03/10/18at 19:18; Start 03/09/18 at 21:00; Stop 03/19/18 at 20: 59 Cetirizine HCl (ZyrTEC) 10 mg DAILY PO Last administered on 03/10/18at 07:57; Start 03/09/18 at 15:00 Vitamin D (Vitamin D3) 50,000 unit WEEKLY PO Last administered on 03/09/18at 15 :47; Start 03/09/18 at 15:00 Lactobacillus Rhamnosus (Culturelle) 1 cap BID PO Last administered on at 19:18; Start 03/09/18 at 21:00 Quetiapine Fumarate (SEROquel) 37.5 mg HS PO Last administered on 03/09/18at 20 :37; Start 03/09/18 at 21:00; Stop 03/10/18 at 16:38; Status DC Quetiapine Fumarate (SEROquel) 50 mg QHS PO Last administered on 03/10/18at 19: 51; Start 03/10/18 at 21:00 Active Scripts Active Reported I-Marbin Tablet (Vit A,C & E/Lutein/Minerals) 1 Each Tablet 1 Each PO Spironolactone 25 Mg Tablet 25 Mg PO DAILY Spiriva (Tiotropium [place]) 18 Mcg Cap.w.dev 18 Mcg IH DAILY Seroquel (Quetiapine Fumarate) 25 Mg Tablet 25 Mg PO HS Potassium Gluconate 99 Mg Tablet 99 Mg PO DAILY Prilosec Otc (Omeprazole Magnesium) 20 Mg Tablet.dr 40 Mg PO DAILY Ferrous Sulfate 325 Mg Tablet 325 Mg PO BID Lexapro (Escitalopram Oxalate) 5 Mg Tablet 5 Mg PO DAILY Aricept (Donepezil Hcl) 10 Mg Tablet 10 Mg PO HS Vitamin D3 (Cholecalciferol (Vitamin D3)) 1,000 Unit Tablet 1,000 Unit PO DAILY Captopril 12.5 Mg Tablet 12.5 Mg PO TID Calcium (Calcium Carbonate) 500 Mg Tablet 500 Mg PO DAILY Lipitor (Atorvastatin Calcium) 40 Mg Tablet 40 Mg PO QHS Aspirin 81 Mg Tab.chew 81 Mg PO DAILY I have reviewed the current psychotropics carefully including drug interactions. Risk benefit ratio favors no change other than as noted in my dictated progress note. 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
[2018-03-11] MEDS: IPRATRPIUM/ALBUTEROL 0.5/2.5MG 3 ML NEBU. NEB SCH ×4 (05:29→20:06)
[2018-03-11 05:51] VITALS: BP 104/57
[2018-03-11] MEDS: PANTOPRAZOLE 40 MG TABLET. PO SCH (07:48)
[2018-03-11] MEDS: FERROUS SULFATE 325 MG TABLET. PO SCH ×2 (08:09→19:11)
[2018-03-11] MEDS: AMOXICILLIN/K CLAV 500/125MG TABLET. PO SCH ×2 (08:09→19:53)
[2018-03-11] MEDS: CALCIUM CARBONATE 500 MG TABLET PO SCH (08:10)
[2018-03-11] MEDS: ASPIRIN 81 MG TAB.CHEW PO SCH (08:10)
[2018-03-11] MEDS: MULTIVITAMIN I-VITE TABLET. PO SCH (08:10)
[2018-03-11] MEDS: LISINOPRIL 5 MG TABLET. PO SCH ×2 (08:10→19:12)
[2018-03-11] MEDS: CITALOPRAM 10 MG TABLET. PO SCH (08:10)
[2018-03-11] MEDS: SPIRONOLACTONE 25 MG TABLET PO SCH (08:10)
[2018-03-11] MEDS: LACTOBACILLUS RHAMNOSUS GG 1 CAPSULE. PO SCH ×2 (08:11→19:11)
[2018-03-11] MEDS: CHOLECALCIFEROL (VITAMIN D3) 1,000 UNIT TABLET PO SCH (08:11)
[2018-03-11] MEDS: CETIRIZINE HCL 10 MG TABLET PO SCH (08:11)
--- NOTE | 2018-03-11 13:59 | NUR ---
Pt calm, pleasant, compliant w/ meds & assess. A&O X 3.
--- NOTE | 2018-03-11 14:00 | NUR ---
Behavior Intervention Response and Plan: BIRP Note: Behavior: Assumed Care of patient, patient located in Patient Room at shift change. Patient exhibited the following behavior Calm, Cooperative, Compliant. Brief assessment on rounds of vital signs, medication needs, lab studies, and pain. Treatment plan problems dementia w bd and fall risk. Intervention: Patient assessed and the following interventions initiated safety checks 15 Minute Checks Head to toe Assessment , Cognitive Assessment , Medications. Response: After interactions and interventions patient responded in the following manner, Calm , Compliant ,Cooperative. Continue to assess behaviors and condition will continue to monitor throughout the shift as needed. Patient educated on ADL's, and hand hygiene. Plan: Continue to monitor Master Treatment Plan for patient's progress toward short term goals of Decreased Agitation, No harm To self/ others, longterm goals to return to previous living setting vs placement. Continue to assess patient for changes in above assessment. Monitor for medication needs, pain, and safety concerns. Hourly rounding performed to ensure safe environment.
[2018-03-11 16:38] VITALS: BP 104/66
[2018-03-11] MEDS: DONEPEZIL HCL 10 MG TABLET PO SCH (19:11)
[2018-03-11] MEDS: ATORVASTATIN CALCIUM 20 MG TABLET PO SCH (19:11)
[2018-03-11] MEDS: QUEtiapine 50 MG TABLET. PO SCH (19:12)
--- NOTE | 2018-03-11 20:42 | NUR ---
Nursing note: Assumed care of pt in his room. He is pleasant, compliant, and interactive. Pt is A&OX3, no delusions present at this time, pt is lying in bed. No c/o pain
--- NOTE | 2018-03-11 22:17 | PN ---
DATE: 03/10/2018 PSYCHIATRIC PROGRESS NOTE This late entry 03/10/2018 covers elements not covered in my initial note. SUBJECTIVE: I met with the patient in the evening in his room. Once again as I was standing outside his room, he was constantly talking when no one was there. Lights were off. Per nursing report, he slept 8 hours previous evening, oriented to himself, and knew he was in a hospital, unaware of the date. Takes his medications whole. I talked to him at great length individually what he would do if he thought he heard someone [facility] to [facility]. He said he is not sure, but he probably responded to that and go there and wait for the capsule to come. He states he was in [employer] and knew even when he was there years ago, they were developing hovercrafts that could carry people and split seconds across via territories and remains somewhat obsessive, anxious about this. REVIEW OF SYSTEMS: No CV, , pulmonary, eye, ENT system symptoms on review. Reliability fair. MENTAL STATUS EXAM: Oriented to himself and situation. Speech is coherent, abstraction fair, computation impaired, language function intact, attention span short. Mood and affect remain somewhat withdrawn. LABORATORY DATA: Reviewed. IMPRESSION: Psychotic disorder, unspecified; major neurocognitive disorder, Alzheimer, vascular with delusion, depression; anxiety disorder, unspecified. PLAN: Increase Seroquel from 37.5 to 50 mg at bedtime. Rest unchanged per initial note. MAN Katlyn HERBERT MD DR: JAN/kristina JOB#: [id number] / [id number]
--- NOTE | 2018-03-11 23:26 | PDOC ---
Exam Note: Musa Note: Please also refer to the separate dictated note~for this date of service dictated separately.~Patient seen individually. Discussed the patient with Nursing staff reviewed the chart.~Reviewed interim history and current functioning. Reviewed vital signs,~Labs/ Radiology~and current medications noted below. Continue current treatment with the changes noted in the dictated addendum note Assessment: Vital Signs: Vital Signs Date Time Temp Pulse Resp B/P (MAP) Pulse Ox O2 Delivery O2 Flow Rate FiO2 03/11/18 19:39 97 Room Air 03/11/18 19:12 66 104/66 03/11/18 16:38 97.5 18 I&O Intake and Output 03/11/18 07:00 Intake Total 1080 ml Balance 1080 ml Intake Oral 1080 ml Current Medications: Meds: Current Medications Calcium Carbonate/ Glycine (Oscal) 500 mg DAILY PO Last administered on 08:10; Start 03/07/18 at 09:00 Vitamin D (Vitamin D3) 1,000 unit DAILY PO Last administered on 03/11/18 08: 11; Start 03/07/18 at 09:00 Ferrous Sulfate (Feosol) 325 mg BID PO Last administered on 03/11/18 19:11; Start 03/06/18 at 21:00 Multivitamins/ Minerals (I-Marbin) 1 tab DAILY PO Last administered on 08:10; Start 03/07/18 at 09:00 Aspirin (Children'S Aspirin) 81 mg DAILYWBKFT PO Last administered on at 08:10; Start 03/07/18 at 08:00 Donepezil HCl (Aricept) 10 mg QHS PO Last administered on 03/11/18 19:11; Start 03/06/18 at 21:00 Citalopram Hydrobromide (CeleXA) 10 mg DAILY PO Last administered on 08:10; Start 03/07/18 at 09:00 Pantoprazole Sodium (Protonix) 40 mg DAILYAC PO Last administered on at 07:48; Start 03/07/18 at 07:30 Non-Formulary Medication (Potassium Gluconate ) 99 mg DAILY PO ; Start at 09:00; Stop 03/07/18 at 09:00; Status DC Quetiapine Fumarate (SEROquel) 25 mg HS PO Last administered on 03/08/18at 19: 48; Start 03/06/18 at 21:00; Stop 03/09/18 at 16:27; Status DC Spironolactone (Aldactone) 25 mg DAILY PO Last administered on 03/11/18at 08:10 ; Start 03/07/18 at 09:00 Non-Formulary Medication (Tiotropium [place] (Spiriva)) 18 mcg DAILY IH ; Start 03/07/18 at 09:00; Stop 03/07/18 at 09:00; Status DC Acetaminophen (Tylenol) 650 mg PRN Q6HRS PRN PO PAIN / TEMP; Start 03/06/18 at 20:30 Multi-Ingredient Ointment (Analgesic [place]) 1 ema PRN QID PRN TP MUSCLE PAIN; Start 03/06/18 at 20:30 Al Hydroxide/Mg Hydroxide (Mylanta Plus Xs) 15 ml PRN AFTMEALHC PRN PO DYSPEPSIA; Start 03/06/18 at 20:30 Magnesium Hydroxide (Milk Of Magnesia) 2,400 mg PRN QHS PRN PO CONSTIPATION; Start 03/06/18 at 20:30 Albuterol/ Ipratropium (Duoneb) 3 ml RTQID NEB Last administered on 03/11/18at 20:06; Start 03/07/18 at 08:00 Influenza Virus Vaccine (Afluria Trivalent [id number] Syringe) 0.5 ml ONCE ONCE VAX IM ; Start 03/07/18 at 09:00; Stop 03/07/18 at 09:01; Status DC Atorvastatin Calcium (Lipitor) 40 mg QHS PO Last administered on 03/11/18at 19: 11; Start 03/07/18 at 21:00 Lisinopril (Prinivil) 5 mg BID PO Last administered on 03/11/18at 08:10; Start 03/07/18 at 09:00 Ondansetron HCl (Zofran Odt) 4 mg PRN Q8HRS PRN PO NAUSEA/VOMITING; Start at 15:30 Trimethoprim/ Sulfamethoxazole (Bactrim Ds) 1 tab BID PO Last administered on 03/09/18at 07:59; Start 03/09/18 at 09:00; Stop 03/09/18 at 14:08; Status DC Amoxicillin/ Clavulanate Potassium (Augmentin 500/ 125mg) 1 tab BID PO Last administered on 03/11/18at 19:53; Start 03/09/18 at 21:00; Stop 03/19/18 at 20: 59 Cetirizine HCl (ZyrTEC) 10 mg DAILY PO Last administered on 03/11/18at 08:11; Start 03/09/18 at 15:00 Vitamin D (Vitamin D3) 50,000 unit WEEKLY PO Last administered on 03/09/18at 15 :47; Start 03/09/18 at 15:00 Lactobacillus Rhamnosus (Culturelle) 1 cap BID PO Last administered on at 19:11; Start 03/09/18 at 21:00 Quetiapine Fumarate (SEROquel) 37.5 mg HS PO Last administered on 03/09/18at 20 :37; Start 03/09/18 at 21:00; Stop 03/10/18 at 16:38; Status DC Quetiapine Fumarate (SEROquel) 50 mg QHS PO Last administered on 03/11/18at 19: 12; Start 03/10/18 at 21:00 Active Scripts Active Reported I-Marbin Tablet (Vit A,C & E/Lutein/Minerals) 1 Each Tablet 1 Each PO Spironolactone 25 Mg Tablet 25 Mg PO DAILY Spiriva (Tiotropium [place]) 18 Mcg Cap.w.dev 18 Mcg IH DAILY Seroquel (Quetiapine Fumarate) 25 Mg Tablet 25 Mg PO HS Potassium Gluconate 99 Mg Tablet 99 Mg PO DAILY Prilosec Otc (Omeprazole Magnesium) 20 Mg Tablet.dr 40 Mg PO DAILY Ferrous Sulfate 325 Mg Tablet 325 Mg PO BID Lexapro (Escitalopram Oxalate) 5 Mg Tablet 5 Mg PO DAILY Aricept (Donepezil Hcl) 10 Mg Tablet 10 Mg PO HS Vitamin D3 (Cholecalciferol (Vitamin D3)) 1,000 Unit Tablet 1,000 Unit PO DAILY Captopril 12.5 Mg Tablet 12.5 Mg PO TID Calcium (Calcium Carbonate) 500 Mg Tablet 500 Mg PO DAILY Lipitor (Atorvastatin Calcium) 40 Mg Tablet 40 Mg PO QHS Aspirin 81 Mg Tab.chew 81 Mg PO DAILY I have reviewed the current psychotropics carefully including drug interactions. Risk benefit ratio favors no change other than as noted in my dictated progress note. 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
[2018-03-12] MEDS: IPRATRPIUM/ALBUTEROL 0.5/2.5MG 3 ML NEBU. NEB SCH ×4 (05:28→20:26)
[2018-03-12 05:46] VITALS: BP 116/66
[2018-03-12] MEDS: CHOLECALCIFEROL (VITAMIN D3) 1,000 UNIT TABLET PO SCH (07:56)
[2018-03-12] MEDS: AMOXICILLIN/K CLAV 500/125MG TABLET. PO SCH ×2 (07:56→20:10)
[2018-03-12] MEDS: MULTIVITAMIN I-VITE TABLET. PO SCH (07:56)
[2018-03-12] MEDS: LISINOPRIL 5 MG TABLET. PO SCH ×2 (07:56→20:12)
[2018-03-12] MEDS: CITALOPRAM 10 MG TABLET. PO SCH (07:57)
[2018-03-12] MEDS: CALCIUM CARBONATE 500 MG TABLET PO SCH (07:57)
[2018-03-12] MEDS: PANTOPRAZOLE 40 MG TABLET. PO SCH (07:57)
[2018-03-12] MEDS: LACTOBACILLUS RHAMNOSUS GG 1 CAPSULE. PO SCH ×2 (07:57→20:10)
[2018-03-12] MEDS: SPIRONOLACTONE 25 MG TABLET PO SCH (07:57)
[2018-03-12] MEDS: ASPIRIN 81 MG TAB.CHEW PO SCH (07:57)
[2018-03-12] MEDS: CETIRIZINE HCL 10 MG TABLET PO SCH (07:57)
[2018-03-12] MEDS: FERROUS SULFATE 325 MG TABLET. PO SCH ×2 (07:57→20:10)
--- NOTE | 2018-03-12 09:00 | NUR ---
WEEKLY ACTIVITY THERAPY NOTE Date of Admission: 03/06/2018 Date of AT Assessment: 03/09/2018 Goal aimed: to increase social engagement Initial goal: Pt. will participate in at least one group per day. Weekly progress towards goal: did not achieve Group participation level: minimal Behaviors observed: Pt. participated moderately in one group this week (03/09 Jeopardy) and spent the rest of the time in his room; Pt. is generally pleasant and compliant with staff and benefits from reminders about group activities Plan: no change to goal; therapists need to remind Pt. of groups
--- NOTE | 2018-03-12 14:47 | NUR ---
WEEKLY NOTE: Pt. is cooperative and never complains of any type of pain. Pt. tends to stay in his room talking to someone that is not there. Pt. allows nursing staff to assess him daily without incident. Pt. does not readily join group but staff will continue to invite him and figure out his interests. SW is working on discharge placement due to the need for a higher level of care.
--- NOTE | 2018-03-12 15:00 | NUR ---
SW spoke with pt. daughter to confirm location of new placement. SW spoke to possible new placement. They will come to assess pt. at 3:00 on 03/17/2018.
--- NOTE | 2018-03-12 15:24 | NUR ---
Behavior Intervention Response and Plan: BIRP Note: Behavior: Assumed Care of patient, patient located in Patient Room at shift change. Patient exhibited the following behavior Calm, Compliant, Cooperative. Brief assessment on rounds of vital signs, medication needs, lab studies, and pain. Treatment plan problems dementia w/ bd and fall risk. Intervention: Patient assessed and the following interventions initiated safety checks 15 Minute Checks Head to toe Assessment , Cognitive Assessment , Medications. Response: After interactions and interventions patient responded in the following manner, Calm , Compliant ,Cooperative. Continue to assess behaviors and condition will continue to monitor throughout the shift as needed. Patient educated on ADL's, and hand hygiene. Plan: Continue to monitor Master Treatment Plan for patient's progress toward short term goals of No harm To self/ others, Medication Compliance, usp goals to return to previous living setting vs placement. Continue to assess patient for changes in above assessment. Monitor for medication needs, pain, and safety concerns. Hourly rounding performed to ensure safe environment.
[2018-03-12 16:13] VITALS: BP 102/60
[2018-03-12] MEDS: QUEtiapine 50 MG TABLET. PO SCH (20:10)
[2018-03-12] MEDS: DONEPEZIL HCL 10 MG TABLET PO SCH (20:10)
[2018-03-12] MEDS: ATORVASTATIN CALCIUM 20 MG TABLET PO SCH (20:10)
--- NOTE | 2018-03-12 21:44 | PN ---
DATE: 03/11/2018 PSYCHIATRIC PROGRESS NOTE This late entry, 03/11/2018, covers elements not covered in my initial note. SUBJECTIVE: I met with the patient in the evening at length in his room. I stood outside the patient's room for some time as he was inside in his room, seated on the chair, lights were turned off, and he was constantly talking aloud as if someone was there in the room and no one was there. He denied hallucinations, as stated. As I discussed with him, he stated that he talks to air out his thoughts so that he can find it easier to understand them. We discussed at some length whether he has been getting messages about going to the sidewalk to take a capsule to [facility] and he stated he had not had these messages, but if they were to come back, he would walk out and follow their directions. REVIEW OF SYSTEMS: No CV, , pulmonary, eye, ENT system symptoms on review. MENTAL STATUS EXAM: Oriented to himself and situation. Speech is coherent, abstraction fair, computation somewhat impaired, language function intact, attention span short. Mood and affect somewhat anxious. LABORATORY DATA: Reviewed. IMPRESSION: Major neurocognitive disorder, early Alzheimer's vascular with delusion; anxiety disorder, unspecified; psychotic disorder, unspecified. PLAN: From a psychiatric standpoint, continue Aricept, Seroquel, and Celexa for now. We may consider changing his Seroquel. ____. He lives in an independent living and he may need a more structured placement at an assisted living as well. I addressed all of this with the patient. MAN Katlyn HERBERT MD DR: JAN/kristina JOB#: [id number] / [id number]
--- NOTE | 2018-03-12 23:14 | PDOC ---
Exam Note: Musa Note: Please also refer to the separate dictated note~for this date of service dictated separately.~Patient seen individually. Discussed the patient with Nursing staff reviewed the chart.~Reviewed interim history and current functioning. Reviewed vital signs,~Labs/ Radiology~and current medications noted below. Continue current treatment with the changes noted in the dictated addendum note Assessment: Vital Signs: Vital Signs Date Time Temp Pulse Resp B/P (MAP) Pulse Ox O2 Delivery O2 Flow Rate FiO2 03/12/18 20:12 67 102/60 03/12/18 20:00 97 Room Air 03/12/18 16:13 97.4 18 I&O Intake and Output 03/12/18 07:00 Intake Total 1080 ml Balance 1080 ml Intake Oral 1080 ml Current Medications: Meds: Current Medications Calcium Carbonate/ Glycine (Oscal) 500 mg DAILY PO Last administered on 07:57; Start 03/07/18 at 09:00 Vitamin D (Vitamin D3) 1,000 unit DAILY PO Last administered on 03/12/18 07:56 ; Start 03/07/18 at 09:00 Ferrous Sulfate (Feosol) 325 mg BID PO Last administered on 03/12/18at 20:10; Start 03/06/18 at 21:00 Multivitamins/ Minerals (I-Marbin) 1 tab DAILY PO Last administered on 03/12/18 07:56; Start 03/07/18 at 09:00 Aspirin (Children'S Aspirin) 81 mg DAILYWBKFT PO Last administered on at 07:57; Start 03/07/18 at 08:00 Donepezil HCl (Aricept) 10 mg QHS PO Last administered on 03/12/18at 20:10; Start 03/06/18 at 21:00 Citalopram Hydrobromide (CeleXA) 10 mg DAILY PO Last administered on 03/12/18at 07:57; Start 03/07/18 at 09:00 Pantoprazole Sodium (Protonix) 40 mg DAILYAC PO Last administered on 03/12/18at 07:57; Start 03/07/18 at 07:30 Non-Formulary Medication (Potassium Gluconate ) 99 mg DAILY PO ; Start at 09:00; Stop 03/07/18 at 09:00; Status DC Quetiapine Fumarate (SEROquel) 25 mg HS PO Last administered on 03/08/18at 19: 48; Start 03/06/18 at 21:00; Stop 03/09/18 at 16:27; Status DC Spironolactone (Aldactone) 25 mg DAILY PO Last administered on 03/12/18at 07:57 ; Start 03/07/18 at 09:00 Non-Formulary Medication (Tiotropium [place] (Spiriva)) 18 mcg DAILY IH ; Start 03/07/18 at 09:00; Stop 03/07/18 at 09:00; Status DC Acetaminophen (Tylenol) 650 mg PRN Q6HRS PRN PO PAIN / TEMP; Start 03/06/18 at 20:30 Multi-Ingredient Ointment (Analgesic [place]) 1 ema PRN QID PRN TP MUSCLE PAIN; Start 03/06/18 at 20:30 Al Hydroxide/Mg Hydroxide (Mylanta Plus Xs) 15 ml PRN AFTMEALHC PRN PO DYSPEPSIA; Start 03/06/18 at 20:30 Magnesium Hydroxide (Milk Of Magnesia) 2,400 mg PRN QHS PRN PO CONSTIPATION; Start 03/06/18 at 20:30 Albuterol/ Ipratropium (Duoneb) 3 ml RTQID NEB Last administered on 03/12/18at 20:26; Start 03/07/18 at 08:00 Influenza Virus Vaccine (Afluria Trivalent [id number] Syringe) 0.5 ml ONCE ONCE VAX IM ; Start 03/07/18 at 09:00; Stop 03/07/18 at 09:01; Status DC Atorvastatin Calcium (Lipitor) 40 mg QHS PO Last administered on 03/12/18at 20: 10; Start 03/07/18 at 21:00 Lisinopril (Prinivil) 5 mg BID PO Last administered on 03/12/18at 07:56; Start 03/07/18 at 09:00 Ondansetron HCl (Zofran Odt) 4 mg PRN Q8HRS PRN PO NAUSEA/VOMITING; Start at 15:30 Trimethoprim/ Sulfamethoxazole (Bactrim Ds) 1 tab BID PO Last administered on 03/09/18at 07:59; Start 03/09/18 at 09:00; Stop 03/09/18 at 14:08; Status DC Amoxicillin/ Clavulanate Potassium (Augmentin 500/ 125mg) 1 tab BID PO Last administered on 03/12/18at 20:10; Start 03/09/18 at 21:00; Stop 03/19/18 at 20: 59 Cetirizine HCl (ZyrTEC) 10 mg DAILY PO Last administered on 03/12/18at 07:57; Start 03/09/18 at 15:00 Vitamin D (Vitamin D3) 50,000 unit WEEKLY PO Last administered on 03/09/18at 15 :47; Start 03/09/18 at 15:00 Lactobacillus Rhamnosus (Culturelle) 1 cap BID PO Last administered on at 20:10; Start 03/09/18 at 21:00 Quetiapine Fumarate (SEROquel) 37.5 mg HS PO Last administered on 03/09/18at 20 :37; Start 03/09/18 at 21:00; Stop 03/10/18 at 16:38; Status DC Quetiapine Fumarate (SEROquel) 50 mg QHS PO Last administered on 03/12/18at 20: 10; Start 03/10/18 at 21:00 Active Scripts Active Reported I-Marbin Tablet (Vit A,C & E/Lutein/Minerals) 1 Each Tablet 1 Each PO Spironolactone 25 Mg Tablet 25 Mg PO DAILY Spiriva (Tiotropium Hundred) 18 Mcg Cap.w.dev 18 Mcg IH DAILY Seroquel (Quetiapine Fumarate) 25 Mg Tablet 25 Mg PO HS Potassium Gluconate 99 Mg Tablet 99 Mg PO DAILY Prilosec Otc (Omeprazole Magnesium) 20 Mg Tablet.dr 40 Mg PO DAILY Ferrous Sulfate 325 Mg Tablet 325 Mg PO BID Lexapro (Escitalopram Oxalate) 5 Mg Tablet 5 Mg PO DAILY Aricept (Donepezil Hcl) 10 Mg Tablet 10 Mg PO HS Vitamin D3 (Cholecalciferol (Vitamin D3)) 1,000 Unit Tablet 1,000 Unit PO DAILY Captopril 12.5 Mg Tablet 12.5 Mg PO TID Calcium (Calcium Carbonate) 500 Mg Tablet 500 Mg PO DAILY Lipitor (Atorvastatin Calcium) 40 Mg Tablet 40 Mg PO QHS Aspirin 81 Mg Tab.chew 81 Mg PO DAILY I have reviewed the current psychotropics carefully including drug interactions. Risk benefit ratio favors no change other than as noted in my dictated progress note. Diagnosis: Problems: (1) Anxiety disorder (2) Dementia of the Alzheimer's type with early onset with behavioral disturbance (3) Dementia, vascular, with delusions (4) Dementia, vascular, with depression (5) Impulse control disorder LÁZARO HERBERT MD Mar 12, 2018 23:14
--- NOTE | 2018-03-13 00:14 | NUR ---
Pt withdrawn to room at shift change. Pt A/O x3, pleasant, interactive, & calm. Pt is delusional- believes that his daughter has torn up his apartment and that she has been shot in the shoulder and is in the hospital. Pt originally resistant to taking his shower but he did comply. Pt cooperative & compliant w/meds & assessment.
[2018-03-13] MEDS: IPRATRPIUM/ALBUTEROL 0.5/2.5MG 3 ML NEBU. NEB SCH ×4 (05:27→19:46)
[2018-03-13 06:23] VITALS: BP 97/56
[2018-03-13] MEDS: MULTIVITAMIN I-VITE TABLET. PO SCH (07:43)
[2018-03-13] MEDS: AMOXICILLIN/K CLAV 500/125MG TABLET. PO SCH ×2 (07:43→20:33)
[2018-03-13] MEDS: CETIRIZINE HCL 10 MG TABLET PO SCH (07:43)
[2018-03-13] MEDS: SPIRONOLACTONE 25 MG TABLET PO SCH (07:43)
[2018-03-13] MEDS: PANTOPRAZOLE 40 MG TABLET. PO SCH (07:45)
[2018-03-13] MEDS: CITALOPRAM 10 MG TABLET. PO SCH (07:45)
[2018-03-13] MEDS: LISINOPRIL 5 MG TABLET. PO SCH (07:45)
[2018-03-13] MEDS: CHOLECALCIFEROL (VITAMIN D3) 1,000 UNIT TABLET PO SCH (07:45)
[2018-03-13] MEDS: FERROUS SULFATE 325 MG TABLET. PO SCH ×2 (07:45→20:33)
[2018-03-13] MEDS: LACTOBACILLUS RHAMNOSUS GG 1 CAPSULE. PO SCH ×2 (07:45→20:33)
[2018-03-13] MEDS: CALCIUM CARBONATE 500 MG TABLET PO SCH (07:45)
[2018-03-13] MEDS: ASPIRIN 81 MG TAB.CHEW PO SCH (07:45)
--- NOTE | 2018-03-13 09:31 | NUR ---
Behavior Intervention Response and Plan: BIRP Note: Behavior: Assumed Care of patient, patient located in Dining Room at shift change. Patient exhibited the following behavior Calm, Delusions, Compliant. Brief assessment on rounds of vital signs, medication needs, lab studies, and pain. Treatment plan problems . Intervention: Patient assessed and the following interventions initiated safety checks 15 Minute Checks Cognitive Assessment , Head to toe Assessment , Medications. Response: After interactions and interventions patient responded in the following manner, Calm , Compliant ,Withdrawn. Continue to assess behaviors and condition will continue to monitor throughout the shift as needed. Patient educated on ADL's, and hand hygiene. Plan: Continue to monitor Master Treatment Plan for patient's progress toward short term goals of Decreased Agitation, Decreased Anxiety, exterminator goals to return to previous living setting vs placement. Continue to assess patient for changes in above assessment. Monitor for medication needs, pain, and safety concerns. Hourly rounding performed to ensure safe environment.
--- NOTE | 2018-03-13 13:05 | NUR ---
AZRA spoke to pt. daughter to let her know that pt. new facility will be assessing the pt. on Friday03/17/2018. Pt. daughter will speak to pt. about placement sometime before facility staff arrives.
[2018-03-13 15:52] VITALS: BP 129/81
--- NOTE | 2018-03-13 18:13 | NUR ---
pt up for meals. still delusional. pleasant. compliant. withdrawn to room.
[2018-03-13] MEDS: DONEPEZIL HCL 10 MG TABLET PO SCH (20:33)
[2018-03-13] MEDS: ATORVASTATIN CALCIUM 20 MG TABLET PO SCH (20:33)
[2018-03-13] MEDS: risperiDONE 0.25 MG TABLET. PO SCH (20:34)
--- NOTE | 2018-03-13 22:23 | PN ---
DATE: 03/12/2018 PSYCHIATRIC PROGRESS NOTE This late entry 03/12/2018 covers elements not covered in my initial note. SUBJECTIVE: I met with the patient in the evening. The patient was also staffed at a treatment team meeting with the entire team in the morning. The patient's daughter, Samina, attended this conference. He slept 8-1/4 hours per Samina, described patient's worsening paranoia. Her concerns with him living independent living and we are in agreement that he needs a more structured placement, perhaps assisted living. REVIEW OF SYSTEMS: No CV, , pulmonary, eye, ENT system symptoms on review. MENTAL STATUS EXAM: The patient is oriented to himself and situation. Speech has some latency, coherent, often responses monosyllabic. Abstraction fair, computation impaired, language function intact, attention span short. Mood and affect withdrawn. As I met with him in his room, talked to him at length about getting messages to go find the capsule to take him to [facility]. He smiled at me and said he will say whatever needs to be set to get out of here. He, however, said if he did receive that message, he would have to obey it. No active suicidal or homicidal ideation. The daughter shared that he had gone on post and got a gun as well, which was concerning at one point because he wanted to protect himself. LABORATORY DATA: Reviewed. IMPRESSION: Major neurocognitive disorder, early Alzheimer, vascular, possibly frontotemporal lobe, dementia with delusion, depression, behavioral disturbance. Rest unchanged. PLAN: No change from initial note, but may change Seroquel to Risperdal if psychotic symptoms persist. MAN Katlyn HERBERT MD DR: JAN/kristina JOB#: [id number] / [id number]
--- NOTE | 2018-03-13 23:11 | PDOC ---
Exam Note: Musa Note: Please also refer to the separate dictated note~for this date of service dictated separately.~Patient seen individually. Discussed the patient with Nursing staff reviewed the chart.~Reviewed interim history and current functioning. Reviewed vital signs,~Labs/ Radiology~and current medications noted below. Continue current treatment with the changes noted in the dictated addendum note Assessment: Vital Signs: Vital Signs Date Time Temp Pulse Resp B/P (MAP) Pulse Ox O2 Delivery O2 Flow Rate FiO2 03/13/18 19:50 94 Room Air 03/13/18 15:52 98.2 73 20 129/81 (97) I&O Intake and Output 03/13/18 07:00 Intake Total 1560 ml Balance 1560 ml Intake Oral 1560 ml # Voids 1 Current Medications: Meds: Current Medications Calcium Carbonate/ Glycine (Oscal) 500 mg DAILY PO Last administered on 07:45; Start 03/07/18 at 09:00 Vitamin D (Vitamin D3) 1,000 unit DAILY PO Last administered on 03/13/18 07:45 ; Start 03/07/18 at 09:00 Ferrous Sulfate (Feosol) 325 mg BID PO Last administered on 03/13/18 20:33; Start 03/06/18 at 21:00 Multivitamins/ Minerals (I-[place]) 1 tab DAILY PO Last administered on 03/13/18at 07:43; Start 03/07/18 at 09:00 Aspirin (Children'S Aspirin) 81 mg DAILYWBKFT PO Last administered on at 07:45; Start 03/07/18 at 08:00 Donepezil HCl (Aricept) 10 mg QHS PO Last administered on 03/13/18at 20:33; Start 03/06/18 at 21:00 Citalopram Hydrobromide (CeleXA) 10 mg DAILY PO Last administered on 03/13/18 07:45; Start 03/07/18 at 09:00 Pantoprazole Sodium (Protonix) 40 mg DAILYAC PO Last administered on 03/13/18at 07:45; Start 03/07/18 at 07:30 Non-Formulary Medication (Potassium Gluconate ) 99 mg DAILY PO ; Start at 09:00; Stop 03/07/18 at 09:00; Status DC Quetiapine Fumarate (SEROquel) 25 mg HS PO Last administered on 03/08/18at 19: 48; Start 03/06/18 at 21:00; Stop 03/09/18 at 16:27; Status DC Spironolactone (Aldactone) 25 mg DAILY PO Last administered on 03/13/18at 07:43 ; Start 03/07/18 at 09:00 Non-Formulary Medication (Tiotropium [place] (Spiriva)) 18 mcg DAILY IH ; Start 03/07/18 at 09:00; Stop 03/07/18 at 09:00; Status DC Acetaminophen (Tylenol) 650 mg PRN Q6HRS PRN PO PAIN / TEMP; Start 03/06/18 at 20:30 Multi-Ingredient Ointment (Analgesic [place]) 1 ema PRN QID PRN TP MUSCLE PAIN; Start 03/06/18 at 20:30 Al Hydroxide/Mg Hydroxide (Mylanta Plus Xs) 15 ml PRN AFTMEALHC PRN PO DYSPEPSIA; Start 03/06/18 at 20:30 Magnesium Hydroxide (Milk Of Magnesia) 2,400 mg PRN QHS PRN PO CONSTIPATION; Start 03/06/18 at 20:30 Albuterol/ Ipratropium (Duoneb) 3 ml RTQID NEB Last administered on 03/13/18at 19:46; Start 03/07/18 at 08:00 Influenza Virus Vaccine (Afluria Trivalent [id number] Syringe) 0.5 ml ONCE ONCE VAX IM ; Start 03/07/18 at 09:00; Stop 03/07/18 at 09:01; Status DC Atorvastatin Calcium (Lipitor) 40 mg QHS PO Last administered on 03/13/18at 20: 33; Start 03/07/18 at 21:00 Lisinopril (Prinivil) 5 mg BID PO Last administered on 03/12/18at 07:56; Start 03/07/18 at 09:00; Stop 03/13/18 at 15:16; Status DC Ondansetron HCl (Zofran Odt) 4 mg PRN Q8HRS PRN PO NAUSEA/VOMITING; Start at 15:30 Trimethoprim/ Sulfamethoxazole (Bactrim Ds) 1 tab BID PO Last administered on 03/09/18at 07:59; Start 03/09/18 at 09:00; Stop 03/09/18 at 14:08; Status DC Amoxicillin/ Clavulanate Potassium (Augmentin 500/ 125mg) 1 tab BID PO Last administered on 03/13/18 20:33; Start 03/09/18 at 21:00; Stop 03/19/18 at 20: 59 Cetirizine HCl (ZyrTEC) 10 mg DAILY PO Last administered on 03/13/18 07:43; Start 03/09/18 at 15:00 Vitamin D (Vitamin D3) 50,000 unit WEEKLY PO Last administered on 03/09/18at 15 :47; Start 03/09/18 at 15:00 Lactobacillus Rhamnosus (Culturelle) 1 cap BID PO Last administered on at 20:33; Start 03/09/18 at 21:00 Quetiapine Fumarate (SEROquel) 37.5 mg HS PO Last administered on 03/09/18at 20 :37; Start 03/09/18 at 21:00; Stop 03/10/18 at 16:38; Status DC Quetiapine Fumarate (SEROquel) 50 mg QHS PO Last administered on 03/12/18at 20: 10; Start 03/10/18 at 21:00; Stop 03/13/18 at 16:35; Status DC Risperidone (RisperDAL) 0.25 mg HS PO Last administered on 03/13/18at 20:34; Start 03/13/18 at 21:00 Active Scripts Active Reported I-[place] Tablet (Vit A,C & E/Lutein/Minerals) 1 Each Tablet 1 Each PO Spironolactone 25 Mg Tablet 25 Mg PO DAILY Spiriva (Tiotropium [place]) 18 Mcg Cap.w.dev 18 Mcg IH DAILY Seroquel (Quetiapine Fumarate) 25 Mg Tablet 25 Mg PO HS Potassium Gluconate 99 Mg Tablet 99 Mg PO DAILY Prilosec Otc (Omeprazole Magnesium) 20 Mg Tablet.dr 40 Mg PO DAILY Ferrous Sulfate 325 Mg Tablet 325 Mg PO BID Lexapro (Escitalopram Oxalate) 5 Mg Tablet 5 Mg PO DAILY Aricept (Donepezil Hcl) 10 Mg Tablet 10 Mg PO HS Vitamin D3 (Cholecalciferol (Vitamin D3)) 1,000 Unit Tablet 1,000 Unit PO DAILY Captopril 12.5 Mg Tablet 12.5 Mg PO TID Calcium (Calcium Carbonate) 500 Mg Tablet 500 Mg PO DAILY Lipitor (Atorvastatin Calcium) 40 Mg Tablet 40 Mg PO QHS Aspirin 81 Mg Tab.chew 81 Mg PO DAILY I have reviewed the current psychotropics carefully including drug interactions. Risk benefit ratio favors no change other than as noted in my dictated progress note. 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
--- NOTE | 2018-03-14 00:30 | NUR ---
Behavior Intervention Response and Plan: BIRP Note: Behavior: Assumed Care of patient, patient located in Patient Room at shift change. Patient exhibited the following behavior Withdrawn, Calm, Delusions. Brief assessment on rounds of vital signs, medication needs, lab studies, and pain. Treatment plan problems 1 and 2. Intervention: Patient assessed and the following interventions initiated safety checks 15 Minute Checks Cognitive Assessment , Head to toe Assessment , Medications. Response: After interactions and interventions patient responded in the following manner, Calm , Compliant ,Cooperative. Continue to assess behaviors and condition will continue to monitor throughout the shift as needed. Patient educated on ADL's, and hand hygiene. Plan: Continue to monitor Master Treatment Plan for patient's progress toward short term goals of Improved Mood, Decreased Agitation, [facility] goals to return to previous living setting vs placement. Continue to assess patient for changes in above assessment. Monitor for medication needs, pain, and safety concerns. Hourly rounding performed to ensure safe environment.
[2018-03-14] MEDS: IPRATRPIUM/ALBUTEROL 0.5/2.5MG 3 ML NEBU. NEB SCH ×4 (05:25→20:22)
[2018-03-14 06:07] VITALS: BP 129/73
[2018-03-14 06:40] LABS: BASO # 0.1 x10^3/uL (0.0-0.2); BASO % 1 % (0-3); EOS # 0.2 x10^3/uL (0.0-0.7); EOS % 3 % (0-3); HEMATOCRIT 30.8 % (39.0-53.0); HEMOGLOBIN 10.5 g/dL (13.0-17.5); LYMPH # 1.4 x10^3/uL (1.0-4.8); LYMPH % 19 % (24-48); MEAN CORPUSCULAR HEMOGLOBIN 33 pg (25-35); MEAN CORPUSCULAR HGB CONC 34 g/dL (31-37); MEAN CORPUSCULAR VOLUME 97 fL (79-100); MONO # 0.6 x10^3/uL (0.0-1.1); MONO % 8 % (0-9); NEUT # 4.9 x10^3uL (1.8-7.7); NEUT % 68 % (31-73); PLATELET COUNT 169 x10^3/uL (140-400); RED BLOOD COUNT 3.17 x10^6/uL (4.30-5.70); RED CELL DISTRIBUTION WIDTH 15.1 % (11.5-14.5); WHITE BLOOD COUNT 7.1 x10^3/uL (4.0-11.0)
[2018-03-14 06:54] LABS: ALBUMIN 3.3 g/dL (3.4-5.0); ALBUMIN/GLOBULIN RATIO 0.9 (1.0-1.7); CALCIUM 8.6 mg/dL (8.5-10.1); CREATININE 1.4 mg/dL (0.7-1.3); GFR 47.8; POTASSIUM 4.3 mmol/L (3.5-5.1); TOTAL BILIRUBIN 0.7 mg/dL (0.2-1.0); TOTAL PROTEIN 6.9 g/dL (6.4-8.2)
[2018-03-14] MEDS: CHOLECALCIFEROL (VITAMIN D3) 1,000 UNIT TABLET PO SCH (07:35)
[2018-03-14] MEDS: FERROUS SULFATE 325 MG TABLET. PO SCH ×2 (07:35→19:40)
[2018-03-14] MEDS: PANTOPRAZOLE 40 MG TABLET. PO SCH (07:36)
[2018-03-14] MEDS: LACTOBACILLUS RHAMNOSUS GG 1 CAPSULE. PO SCH ×2 (07:36→19:39)
[2018-03-14] MEDS: CITALOPRAM 10 MG TABLET. PO SCH (07:36)
[2018-03-14] MEDS: SPIRONOLACTONE 25 MG TABLET PO SCH (07:36)
[2018-03-14] MEDS: ASPIRIN 81 MG TAB.CHEW PO SCH (07:36)
[2018-03-14] MEDS: MULTIVITAMIN I-VITE TABLET. PO SCH (07:36)
[2018-03-14] MEDS: AMOXICILLIN/K CLAV 500/125MG TABLET. PO SCH ×2 (07:36→19:40)
[2018-03-14] MEDS: CETIRIZINE HCL 10 MG TABLET PO SCH (07:36)
[2018-03-14] MEDS: CALCIUM CARBONATE 500 MG TABLET PO SCH (07:36)
--- NOTE | 2018-03-14 10:24 | NUR ---
Behavior Intervention Response and Plan: BIRP Note: Behavior: Assumed Care of patient, patient located in Dining Room at shift change. Patient exhibited the following behavior Calm, Delusions, Compliant. Brief assessment on rounds of vital signs, medication needs, lab studies, and pain. Treatment plan problems . Intervention: Patient assessed and the following interventions initiated safety checks 15 Minute Checks Cognitive Assessment , Head to toe Assessment , Medications. Response: After interactions and interventions patient responded in the following manner, Calm , Compliant ,Withdrawn. Continue to assess behaviors and condition will continue to monitor throughout the shift as needed. Patient educated on ADL's, and hand hygiene. 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 Continue to assess patient for changes in above assessment. Monitor for medication needs, pain, and safety concerns. Hourly rounding performed to ensure safe environment.
[2018-03-14 16:06] VITALS: BP 97/58
[2018-03-14] MEDS: DONEPEZIL HCL 10 MG TABLET PO SCH (19:39)
[2018-03-14] MEDS: risperiDONE 0.25 MG TABLET. PO SCH (19:40)
[2018-03-14] MEDS: ATORVASTATIN CALCIUM 20 MG TABLET PO SCH (19:40)
--- NOTE | 2018-03-14 19:56 | NUR ---
Exit seeking in am. compliant with meds. out to day room today. still delusional but oriented.
--- NOTE | 2018-03-14 23:14 | PDOC ---
Exam Note: Musa Note: Please also refer to the separate dictated note~for this date of service dictated separately.~Patient seen individually. Discussed the patient with Nursing staff reviewed the chart.~Reviewed interim history and current functioning. Reviewed vital signs,~Labs/ Radiology~and current medications noted below. Continue current treatment with the changes noted in the dictated addendum note Assessment: Vital Signs: Vital Signs Date Time Temp Pulse Resp B/P (MAP) Pulse Ox O2 Delivery O2 Flow Rate FiO2 03/14/18 20:25 94 Room Air 03/14/18 16:06 98.4 77 20 97/58 (71) I&O Intake and Output 03/14/18 07:00 Intake Total 960 ml Balance 960 ml Intake Oral 960 ml # Voids 3 Labs: Laboratory Tests Test 03/14/18 06:15 White Blood Count 7.1 x10^3/uL (4.0-11.0) Red Blood Count 3.17 x10^6/uL (4.30-5.70) L Hemoglobin 10.5 g/dL (13.0-17.5) L Hematocrit 30.8 % (39.0-53.0) L Mean Corpuscular Volume 97 fL (79-100) Mean Corpuscular Hemoglobin 33 pg (25-35) Mean Corpuscular Hemoglobin Concent 34 g/dL (31-37) Red Cell Distribution Width 15.1 % (11.5-14.5) H Platelet Count 169 x10^3/uL (140-400) Neutrophils (%) (Auto) 68 % (31-73) Lymphocytes (%) (Auto) 19 % (24-48) L Monocytes (%) (Auto) 8 % (0-9) Eosinophils (%) (Auto) 3 % (0-3) Basophils (%) (Auto) 1 % (0-3) Neutrophils # (Auto) 4.9 x10^3uL (1.8-7.7) Lymphocytes # (Auto) 1.4 x10^3/uL (1.0-4.8) Monocytes # (Auto) 0.6 x10^3/uL (0.0-1.1) Eosinophils # (Auto) 0.2 x10^3/uL (0.0-0.7) Basophils # (Auto) 0.1 x10^3/uL (0.0-0.2) Sodium Level 136 mmol/L (136-145) Potassium Level 4.3 mmol/L (3.5-5.1) Chloride Level 101 mmol/L (98-107) Carbon Dioxide Level 27 mmol/L (21-32) Anion Gap 8 (6-14) Blood Urea Nitrogen 22 mg/dL (8-26) Creatinine 1.4 mg/dL (0.7-1.3) H Estimated GFR (Cockcroft-Gault) 47.8 BUN/Creatinine Ratio 16 (6-20) Glucose Level 109 mg/dL (70-99) H Calcium Level 8.6 mg/dL (8.5-10.1) Total Bilirubin 0.7 mg/dL (0.2-1.0) Aspartate Amino Transferase (AST) 25 U/L (15-37) Alanine Aminotransferase (ALT) 20 U/L (16-63) Alkaline Phosphatase 67 U/L (46-116) Total Protein 6.9 g/dL (6.4-8.2) Albumin 3.3 g/dL (3.4-5.0) L Albumin/Globulin Ratio 0.9 (1.0-1.7) L Current Medications: Meds: Current Medications Calcium Carbonate/ Glycine (Oscal) 500 mg DAILY PO Last administered on 07:36; Start 03/07/18 at 09:00 Vitamin D (Vitamin D3) 1,000 unit DAILY PO Last administered on 03/14/18 07:35 ; Start 03/07/18 at 09:00 Ferrous Sulfate (Feosol) 325 mg BID PO Last administered on 03/14/18 19:40; Start 03/06/18 at 21:00 Multivitamins/ Minerals (I-[place]) 1 tab DAILY PO Last administered on 03/14/18 07:36; Start 03/07/18 at 09:00 Aspirin (Children'S Aspirin) 81 mg DAILYWBKFT PO Last administered on 07:36; Start 03/07/18 at 08:00 Donepezil HCl (Aricept) 10 mg QHS PO Last administered on 03/14/18 19:39; Start 03/06/18 at 21:00 Citalopram Hydrobromide (CeleXA) 10 mg DAILY PO Last administered on 03/14/18at 07:36; Start 03/07/18 at 09:00 Pantoprazole Sodium (Protonix) 40 mg DAILYAC PO Last administered on 03/14/18at 07:36; Start 03/07/18 at 07:30 Non-Formulary Medication (Potassium Gluconate ) 99 mg DAILY PO ; Start at 09:00; Stop 03/07/18 at 09:00; Status DC Quetiapine Fumarate (SEROquel) 25 mg HS PO Last administered on 03/08/18at 19: 48; Start 03/06/18 at 21:00; Stop 03/09/18 at 16:27; Status DC Spironolactone (Aldactone) 25 mg DAILY PO Last administered on 03/14/18at 07:36 ; Start 03/07/18 at 09:00 Non-Formulary Medication (Tiotropium [place] (Spiriva)) 18 mcg DAILY IH ; Start 03/07/18 at 09:00; Stop 03/07/18 at 09:00; Status DC Acetaminophen (Tylenol) 650 mg PRN Q6HRS PRN PO PAIN / TEMP; Start 03/06/18 at 20:30 Multi-Ingredient Ointment (Analgesic [place]) 1 ema PRN QID PRN TP MUSCLE PAIN; Start 03/06/18 at 20:30 Al Hydroxide/Mg Hydroxide (Mylanta Plus Xs) 15 ml PRN AFTMEALHC PRN PO DYSPEPSIA; Start 03/06/18 at 20:30 Magnesium Hydroxide (Milk Of Magnesia) 2,400 mg PRN QHS PRN PO CONSTIPATION; Start 03/06/18 at 20:30 Albuterol/ Ipratropium (Duoneb) 3 ml RTQID NEB Last administered on 03/14/18at 20:22; Start 03/07/18 at 08:00 Influenza Virus Vaccine (Afluria Trivalent [id number] Syringe) 0.5 ml ONCE ONCE VAX IM ; Start 03/07/18 at 09:00; Stop 03/07/18 at 09:01; Status DC Atorvastatin Calcium (Lipitor) 40 mg QHS PO Last administered on 03/14/18at 19: 40; Start 03/07/18 at 21:00 Lisinopril (Prinivil) 5 mg BID PO Last administered on 03/12/18at 07:56; Start 03/07/18 at 09:00; Stop 03/13/18 at 15:16; Status DC Ondansetron HCl (Zofran Odt) 4 mg PRN Q8HRS PRN PO NAUSEA/VOMITING; Start at 15:30 Trimethoprim/ Sulfamethoxazole (Bactrim Ds) 1 tab BID PO Last administered on 03/09/18at 07:59; Start 03/09/18 at 09:00; Stop 03/09/18 at 14:08; Status DC Amoxicillin/ Clavulanate Potassium (Augmentin 500/ 125mg) 1 tab BID PO Last administered on 03/14/18at 19:40; Start 03/09/18 at 21:00; Stop 03/19/18 at 20: 59 Cetirizine HCl (ZyrTEC) 10 mg DAILY PO Last administered on 03/14/18at 07:36; Start 03/09/18 at 15:00 Vitamin D (Vitamin D3) 50,000 unit WEEKLY PO Last administered on 03/09/18at 15 :47; Start 03/09/18 at 15:00 Lactobacillus Rhamnosus (Culturelle) 1 cap BID PO Last administered on at 19:39; Start 03/09/18 at 21:00 Quetiapine Fumarate (SEROquel) 37.5 mg HS PO Last administered on 03/09/18at 20 :37; Start 03/09/18 at 21:00; Stop 03/10/18 at 16:38; Status DC Quetiapine Fumarate (SEROquel) 50 mg QHS PO Last administered on 03/12/18at 20: 10; Start 03/10/18 at 21:00; Stop 03/13/18 at 16:35; Status DC Risperidone (RisperDAL) 0.25 mg HS PO Last administered on 03/14/18at 19:40; Start 03/13/18 at 21:00 Active Scripts Active Reported I-[place] Tablet (Vit A,C & E/Lutein/Minerals) 1 Each Tablet 1 Each PO Spironolactone 25 Mg Tablet 25 Mg PO DAILY Spiriva (Tiotropium [place]) 18 Mcg Cap.w.dev 18 Mcg IH DAILY Seroquel (Quetiapine Fumarate) 25 Mg Tablet 25 Mg PO HS Potassium Gluconate 99 Mg Tablet 99 Mg PO DAILY Prilosec Otc (Omeprazole Magnesium) 20 Mg Tablet.dr 40 Mg PO DAILY Ferrous Sulfate 325 Mg Tablet 325 Mg PO BID Lexapro (Escitalopram Oxalate) 5 Mg Tablet 5 Mg PO DAILY Aricept (Donepezil Hcl) 10 Mg Tablet 10 Mg PO HS Vitamin D3 (Cholecalciferol (Vitamin D3)) 1,000 Unit Tablet 1,000 Unit PO DAILY Captopril 12.5 Mg Tablet 12.5 Mg PO TID Calcium (Calcium Carbonate) 500 Mg Tablet 500 Mg PO DAILY Lipitor (Atorvastatin Calcium) 40 Mg Tablet 40 Mg PO QHS Aspirin 81 Mg Tab.chew 81 Mg PO DAILY I have reviewed the current psychotropics carefully including drug interactions. Risk benefit ratio favors no change other than as noted in my dictated progress note. 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
--- NOTE | 2018-03-15 01:24 | NUR ---
Behavior Intervention Response and Plan: BIRP Note: Behavior: Assumed Care of patient, patient located in Patient Room at shift change. Patient exhibited the following behavior Withdrawn, Irritable, Delusions. Brief assessment on rounds of vital signs, medication needs, lab studies, and pain. Treatment plan problems 1 and 2. Intervention: Patient assessed and the following interventions initiated safety checks 15 Minute Checks Cognitive Assessment , Head to toe Assessment , Medications. Response: After interactions and interventions patient responded in the following manner, Irritable , Compliant ,Cooperative. Continue to assess behaviors and condition will continue to monitor throughout the shift as needed. Patient educated on ADL's, and hand hygiene. Plan: Continue to monitor Master Treatment Plan for patient's progress toward short term goals of Improved Mood, Decreased Agitation, intermediate frame tender goals to return to previous living setting vs placement. Continue to assess patient for changes in above assessment. Monitor for medication needs, pain, and safety concerns. Hourly rounding performed to ensure safe environment.
[2018-03-15] MEDS: IPRATRPIUM/ALBUTEROL 0.5/2.5MG 3 ML NEBU. NEB SCH ×4 (05:12→20:39)
[2018-03-15 06:12] VITALS: BP 111/65
[2018-03-15] MEDS: PANTOPRAZOLE 40 MG TABLET. PO SCH (07:51)
[2018-03-15] MEDS: MULTIVITAMIN I-VITE TABLET. PO SCH (07:51)
[2018-03-15] MEDS: CETIRIZINE HCL 10 MG TABLET PO SCH (07:51)
[2018-03-15] MEDS: SPIRONOLACTONE 25 MG TABLET PO SCH (07:51)
[2018-03-15] MEDS: CHOLECALCIFEROL (VITAMIN D3) 1,000 UNIT TABLET PO SCH (07:51)
[2018-03-15] MEDS: LACTOBACILLUS RHAMNOSUS GG 1 CAPSULE. PO SCH ×2 (07:51→19:34)
[2018-03-15] MEDS: AMOXICILLIN/K CLAV 500/125MG TABLET. PO SCH ×2 (07:51→19:34)
[2018-03-15] MEDS: ASPIRIN 81 MG TAB.CHEW PO SCH (07:51)
[2018-03-15] MEDS: CALCIUM CARBONATE 500 MG TABLET PO SCH (07:51)
[2018-03-15] MEDS: FERROUS SULFATE 325 MG TABLET. PO SCH ×2 (07:51→19:34)
[2018-03-15] MEDS: CITALOPRAM 10 MG TABLET. PO SCH (07:51)
--- NOTE | 2018-03-15 09:32 | NUR ---
Behavior Intervention Response and Plan: BIRP Note: Behavior: Assumed Care of patient, patient located in Dining Room at shift change. Patient exhibited the following behavior Calm, Delusions, Compliant. Brief assessment on rounds of vital signs, medication needs, lab studies, and pain. Treatment plan problems . Intervention: Patient assessed and the following interventions initiated safety checks 15 Minute Checks Cognitive Assessment , Head to toe Assessment , Medications. Response: After interactions and interventions patient responded in the following manner, Calm , Compliant ,Withdrawn. Continue to assess behaviors and condition will continue to monitor throughout the shift as needed. Patient educated on ADL's, and hand hygiene. 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 Continue to assess patient for changes in above assessment. Monitor for medication needs, pain, and safety concerns. Hourly rounding performed to ensure safe environment.
--- NOTE | 2018-03-15 11:49 | PN ---
DATE: 03/13/2018 PSYCHATRIC PROGRESS NOTE This is a late entry 03/13/2019 covers elements not covered in my initial note. SUBJECTIVE: I met with the patient in the evening. The patient slept for 3/4 hours previous night. I met with him at length in his room. He has been resistive to showers, talking to himself, sitting in his room, paranoid. We talked about the capsule coming to take him to [facility] inhouse, this does not seem reasonable, but he smiles at me, knows what to say to get him out of here, still remains paranoid. REVIEW OF SYSTEMS: No CV, , pulmonary, eye, ENT system symptoms on review. MENTAL STATUS: Oriented to himself and situation. Speech has some latency, coherent. Abstraction fair, computation impaired, language function intact, attention span short. Mood and affect remains somewhat withdrawn. IMPRESSION: Major neurocognitive disorder, early Alzheimer, vascular with delusions. Rest unchanged. PLAN: Change Seroquel 50 mg at bedtime to Risperdal 0.25 mg at bedtime. Maintain Celexa, Aricept at current dosage for now. LÁZARO HERBERT MD DR: JAN/kristina JOB#: [id number] / [id number]
[2018-03-15 15:54] VITALS: BP 108/64
--- NOTE | 2018-03-15 16:53 | NUR ---
pt up adl to meals. has been in pleasant spirits. compliant with meds and cares.
[2018-03-15] MEDS: DONEPEZIL HCL 10 MG TABLET PO SCH (19:33)
[2018-03-15] MEDS: risperiDONE 0.25 MG TABLET. PO SCH (19:34)
[2018-03-15] MEDS: ATORVASTATIN CALCIUM 20 MG TABLET PO SCH (19:34)
--- NOTE | 2018-03-15 20:29 | NUR ---
Nursing note: Assumed care pf pt in his room. Pt calm and pleasant, cooperative w/meds and assessment. Pt is A&OX3 but still has delusions. No c/o pain and no irritation at this time.
--- NOTE | 2018-03-15 23:14 | PDOC ---
Exam Note: Musa Note: Please also refer to the separate dictated note~for this date of service dictated separately.~Patient seen individually. Discussed the patient with Nursing staff reviewed the chart.~Reviewed interim history and current functioning. Reviewed vital signs,~Labs/ Radiology~and current medications noted below. Continue current treatment with the changes noted in the dictated addendum note Assessment: Vital Signs: Vital Signs Date Time Temp Pulse Resp B/P (MAP) Pulse Ox O2 Delivery O2 Flow Rate FiO2 03/15/18 20:40 93 Room Air 03/15/18 15:54 97.6 69 20 108/64 (79) I&O Intake and Output 03/15/18 07:00 Intake Total 1200 ml Balance 1200 ml Intake Oral 1200 ml Current Medications: Meds: Current Medications Calcium Carbonate/ Glycine (Oscal) 500 mg DAILY PO Last administered on 07:51; Start 03/07/18 at 09:00 Vitamin D (Vitamin D3) 1,000 unit DAILY PO Last administered on 03/15/18 07:51 ; Start 03/07/18 at 09:00 Ferrous Sulfate (Feosol) 325 mg BID PO Last administered on 03/15/18 19:34; Start 03/06/18 at 21:00 Multivitamins/ Minerals (I-[place]) 1 tab DAILY PO Last administered on 03/15/18 07:51; Start 03/07/18 at 09:00 Aspirin (Children'S Aspirin) 81 mg DAILYWBKFT PO Last administered on 07:51; Start 03/07/18 at 08:00 Donepezil HCl (Aricept) 10 mg QHS PO Last administered on 03/15/18 19:33; Start 03/06/18 at 21:00 Citalopram Hydrobromide (CeleXA) 10 mg DAILY PO Last administered on 03/15/18 07:51; Start 03/07/18 at 09:00 Pantoprazole Sodium (Protonix) 40 mg DAILYAC PO Last administered on 03/15/18 07:51; Start 03/07/18 at 07:30 Non-Formulary Medication (Potassium Gluconate ) 99 mg DAILY PO ; Start at 09:00; Stop 03/07/18 at 09:00; Status DC Quetiapine Fumarate (SEROquel) 25 mg HS PO Last administered on 03/08/18at 19: 48; Start 03/06/18 at 21:00; Stop 03/09/18 at 16:27; Status DC Spironolactone (Aldactone) 25 mg DAILY PO Last administered on 03/15/18at 07:51 ; Start 03/07/18 at 09:00 Non-Formulary Medication (Tiotropium [place] (Spiriva)) 18 mcg DAILY IH ; Start 03/07/18 at 09:00; Stop 03/07/18 at 09:00; Status DC Acetaminophen (Tylenol) 650 mg PRN Q6HRS PRN PO PAIN / TEMP; Start 03/06/18 at 20:30 Multi-Ingredient Ointment (Analgesic [place]) 1 ema PRN QID PRN TP MUSCLE PAIN; Start 03/06/18 at 20:30 Al Hydroxide/Mg Hydroxide (Mylanta Plus Xs) 15 ml PRN AFTMEALHC PRN PO DYSPEPSIA; Start 03/06/18 at 20:30 Magnesium Hydroxide (Milk Of Magnesia) 2,400 mg PRN QHS PRN PO CONSTIPATION; Start 03/06/18 at 20:30 Albuterol/ Ipratropium (Duoneb) 3 ml RTQID NEB Last administered on 03/15/18at 20:39; Start 03/07/18 at 08:00 Influenza Virus Vaccine (Afluria Trivalent [id number] Syringe) 0.5 ml ONCE ONCE VAX IM ; Start 03/07/18 at 09:00; Stop 03/07/18 at 09:01; Status DC Atorvastatin Calcium (Lipitor) 40 mg QHS PO Last administered on 03/15/18at 19: 34; Start 03/07/18 at 21:00 Lisinopril (Prinivil) 5 mg BID PO Last administered on 03/12/18at 07:56; Start 03/07/18 at 09:00; Stop 03/13/18 at 15:16; Status DC Ondansetron HCl (Zofran Odt) 4 mg PRN Q8HRS PRN PO NAUSEA/VOMITING; Start at 15:30 Trimethoprim/ Sulfamethoxazole (Bactrim Ds) 1 tab BID PO Last administered on 03/09/18at 07:59; Start 03/09/18 at 09:00; Stop 03/09/18 at 14:08; Status DC Amoxicillin/ Clavulanate Potassium (Augmentin 500/ 125mg) 1 tab BID PO Last administered on 03/15/18at 19:34; Start 03/09/18 at 21:00; Stop 03/19/18 at 20: 59 Cetirizine HCl (ZyrTEC) 10 mg DAILY PO Last administered on 03/15/18at 07:51; Start 03/09/18 at 15:00 Vitamin D (Vitamin D3) 50,000 unit WEEKLY PO Last administered on 03/09/18at 15 :47; Start 03/09/18 at 15:00 Lactobacillus Rhamnosus (Culturelle) 1 cap BID PO Last administered on at 19:34; Start 03/09/18 at 21:00 Quetiapine Fumarate (SEROquel) 37.5 mg HS PO Last administered on 03/09/18at 20 :37; Start 03/09/18 at 21:00; Stop 03/10/18 at 16:38; Status DC Quetiapine Fumarate (SEROquel) 50 mg QHS PO Last administered on 03/12/18at 20: 10; Start 03/10/18 at 21:00; Stop 03/13/18 at 16:35; Status DC Risperidone (RisperDAL) 0.25 mg HS PO Last administered on 03/15/18at 19:34; Start 03/13/18 at 21:00 Active Scripts Active Reported I-[place] Tablet (Vit A,C & E/Lutein/Minerals) 1 Each Tablet 1 Each PO Spironolactone 25 Mg Tablet 25 Mg PO DAILY Spiriva (Tiotropium [place]) 18 Mcg Cap.w.dev 18 Mcg IH DAILY Seroquel (Quetiapine Fumarate) 25 Mg Tablet 25 Mg PO HS Potassium Gluconate 99 Mg Tablet 99 Mg PO DAILY Prilosec Otc (Omeprazole Magnesium) 20 Mg Tablet.dr 40 Mg PO DAILY Ferrous Sulfate 325 Mg Tablet 325 Mg PO BID Lexapro (Escitalopram Oxalate) 5 Mg Tablet 5 Mg PO DAILY Aricept (Donepezil Hcl) 10 Mg Tablet 10 Mg PO HS Vitamin D3 (Cholecalciferol (Vitamin D3)) 1,000 Unit Tablet 1,000 Unit PO DAILY Captopril 12.5 Mg Tablet 12.5 Mg PO TID Calcium (Calcium Carbonate) 500 Mg Tablet 500 Mg PO DAILY Lipitor (Atorvastatin Calcium) 40 Mg Tablet 40 Mg PO QHS Aspirin 81 Mg Tab.chew 81 Mg PO DAILY I have reviewed the current psychotropics carefully including drug interactions. Risk benefit ratio favors no change other than as noted in my dictated progress note. 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
[2018-03-16] MEDS: IPRATRPIUM/ALBUTEROL 0.5/2.5MG 3 ML NEBU. NEB SCH ×4 (05:53→20:54)
[2018-03-16 06:18] VITALS: BP 121/66
[2018-03-16] MEDS: PANTOPRAZOLE 40 MG TABLET. PO SCH (07:36)
[2018-03-16] MEDS: CITALOPRAM 10 MG TABLET. PO SCH (09:20)
[2018-03-16] MEDS: FERROUS SULFATE 325 MG TABLET. PO SCH ×2 (09:20→19:13)
[2018-03-16] MEDS: ASPIRIN 81 MG TAB.CHEW PO SCH (09:20)
[2018-03-16] MEDS: AMOXICILLIN/K CLAV 500/125MG TABLET. PO SCH ×2 (09:20→19:13)
[2018-03-16] MEDS: CHOLECALCIFEROL (VITAMIN D3) 1,000 UNIT TABLET PO SCH (09:20)
[2018-03-16] MEDS: MULTIVITAMIN I-VITE TABLET. PO SCH (09:20)
[2018-03-16] MEDS: CALCIUM CARBONATE 500 MG TABLET PO SCH (09:20)
[2018-03-16] MEDS: SPIRONOLACTONE 25 MG TABLET PO SCH (09:20)
[2018-03-16] MEDS: LACTOBACILLUS RHAMNOSUS GG 1 CAPSULE. PO SCH ×2 (09:20→19:13)
[2018-03-16] MEDS: CETIRIZINE HCL 10 MG TABLET PO SCH (09:20)
[2018-03-16] MEDS: CHOLECALCIFEROL (VITAMIN D3) 50,000 UNIT CAPSULE PO SCH (09:24)
--- NOTE | 2018-03-16 11:10 | NUR ---
As this nurse and staff [employer] REPRESENTATIVE were walking past pt's room, overheard him talking as if someone else was in the room. Pt was using terms such as government and documents. Pt stopped as soon as he was aware others were there. Pt compliant w/ meds & assess; however, pt did question two of his medication. Once informed of what the meds were pt compliant. Pt was out in the day room this am during morning group. Pt very insistent that he is leaving today.
[2018-03-16 15:15] VITALS: BP 107/58
[2018-03-16] MEDS: ATORVASTATIN CALCIUM 20 MG TABLET PO SCH (19:13)
[2018-03-16] MEDS: DONEPEZIL HCL 10 MG TABLET PO SCH (19:13)
--- NOTE | 2018-03-16 19:47 | PN ---
DATE: 03/14/2018 This is a late entry, 03/14/2018, covers the elements not covered in my initial note. SUBJECTIVE: I met with the patient in the evening. The patient slept 6-3/4 hours the previous night. He has been coming out the day room, but when he is in his room, he keeps his light turned off and actively talking, even though there is no one around him. This is where I met with him. He minimizes his delusions, but when specifically questioned, states that if he is called to go to the [employer], he still will walk out in the street to the spot they want him to wait at. REVIEW OF SYSTEMS: No CV, , pulmonary, eye, ENT system symptoms on review, slightly hard of hearing. MENTAL STATUS EXAM: Oriented to himself and situation. Speech is coherent, has some latency. Abstraction fair, computation impaired, language function intact, attention span short. Mood and affect somewhat withdrawn. No suicidal or homicidal ideation. LABORATORY DATA: Reviewed. IMPRESSION: Psychotic disorder, unspecified; major neurocognitive disorder, early Alzheimer, vascular with delusion. Rest unchanged. PLAN: Continue Celexa, Aricept, and Risperdal, which was initiated at 0.25 mg by mouth at bedtime. We may need to increase this gradually. LÁZARO HERBERT MD DR: JAN/kristina JOB#: [id number] / [id number]
[2018-03-16] MEDS: risperiDONE 0.5 MG TABLET. PO SCH (21:23)
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
--- NOTE | 2018-03-16 23:14 | PDOC ---
Exam Note: Musa Note: Please also refer to the separate dictated note~for this date of service dictated separately.~Patient seen individually. Discussed the patient with Nursing staff reviewed the chart.~Reviewed interim history and current functioning. Reviewed vital signs,~Labs/ Radiology~and current medications noted below. Continue current treatment with the changes noted in the dictated addendum note Assessment: Vital Signs: Vital Signs Date Time Temp Pulse Resp B/P (MAP) Pulse Ox O2 Delivery O2 Flow Rate FiO2 03/16/18 20:55 95 Room Air 03/16/18 15:15 98.1 75 20 107/58 (74) I&O Intake and Output 03/16/18 07:00 Intake Total 1200 ml Balance 1200 ml Intake Oral 1200 ml # Voids 1 Current Medications: Meds: Current Medications Calcium Carbonate/ Glycine (Oscal) 500 mg DAILY PO Last administered on 09:20; Start 03/07/18 at 09:00 Vitamin D (Vitamin D3) 1,000 unit DAILY PO Last administered on 03/16/18 09:20 ; Start 03/07/18 at 09:00 Ferrous Sulfate (Feosol) 325 mg BID PO Last administered on 03/16/18 19:13; Start 03/06/18 at 21:00 Multivitamins/ Minerals (I-Marbin) 1 tab DAILY PO Last administered on 03/16/18 09:20; Start 03/07/18 at 09:00 Aspirin (Children'S Aspirin) 81 mg DAILYWBKFT PO Last administered on 09:20; Start 03/07/18 at 08:00 Donepezil HCl (Aricept) 10 mg QHS PO Last administered on 03/16/18 19:13; Start 03/06/18 at 21:00 Citalopram Hydrobromide (CeleXA) 10 mg DAILY PO Last administered on 03/16/18 09:20; Start 03/07/18 at 09:00 Pantoprazole Sodium (Protonix) 40 mg DAILYAC PO Last administered on 03/16/18at 07:36; Start 03/07/18 at 07:30 Non-Formulary Medication (Potassium Gluconate ) 99 mg DAILY PO ; Start at 09:00; Stop 03/07/18 at 09:00; Status DC Quetiapine Fumarate (SEROquel) 25 mg HS PO Last administered on 03/08/18at 19: 48; Start 03/06/18 at 21:00; Stop 03/09/18 at 16:27; Status DC Spironolactone (Aldactone) 25 mg DAILY PO Last administered on 03/16/18at 09:20 ; Start 03/07/18 at 09:00 Non-Formulary Medication (Tiotropium [place] (Spiriva)) 18 mcg DAILY IH ; Start 03/07/18 at 09:00; Stop 03/07/18 at 09:00; Status DC Acetaminophen (Tylenol) 650 mg PRN Q6HRS PRN PO PAIN / TEMP; Start 03/06/18 at 20:30 Multi-Ingredient Ointment (Analgesic [place]) 1 ema PRN QID PRN TP MUSCLE PAIN; Start 03/06/18 at 20:30 Al Hydroxide/Mg Hydroxide (Mylanta Plus Xs) 15 ml PRN AFTMEALHC PRN PO DYSPEPSIA; Start 03/06/18 at 20:30 Magnesium Hydroxide (Milk Of Magnesia) 2,400 mg PRN QHS PRN PO CONSTIPATION; Start 03/06/18 at 20:30 Albuterol/ Ipratropium (Duoneb) 3 ml RTQID NEB Last administered on 03/16/18at 20:54; Start 03/07/18 at 08:00 Influenza Virus Vaccine (Afluria Trivalent [id number] Syringe) 0.5 ml ONCE ONCE VAX IM ; Start 03/07/18 at 09:00; Stop 03/07/18 at 09:01; Status DC Atorvastatin Calcium (Lipitor) 40 mg QHS PO Last administered on 03/16/18at 19: 13; Start 03/07/18 at 21:00 Lisinopril (Prinivil) 5 mg BID PO Last administered on 03/12/18at 07:56; Start 03/07/18 at 09:00; Stop 03/13/18 at 15:16; Status DC Ondansetron HCl (Zofran Odt) 4 mg PRN Q8HRS PRN PO NAUSEA/VOMITING; Start at 15:30 Trimethoprim/ Sulfamethoxazole (Bactrim Ds) 1 tab BID PO Last administered on 03/09/18at 07:59; Start 03/09/18 at 09:00; Stop 03/09/18 at 14:08; Status DC Amoxicillin/ Clavulanate Potassium (Augmentin 500/ 125mg) 1 tab BID PO Last administered on 03/16/18at 19:13; Start 03/09/18 at 21:00; Stop 03/19/18 at 20: 59 Cetirizine HCl (ZyrTEC) 10 mg DAILY PO Last administered on 03/16/18at 09:20; Start 03/09/18 at 15:00 Vitamin D (Vitamin D3) 50,000 unit WEEKLY PO Last administered on 03/16/18at 09: 24; Start 03/09/18 at 15:00 Lactobacillus Rhamnosus (Culturelle) 1 cap BID PO Last administered on at 19:13; Start 03/09/18 at 21:00 Quetiapine Fumarate (SEROquel) 37.5 mg HS PO Last administered on 03/09/18at 20 :37; Start 03/09/18 at 21:00; Stop 03/10/18 at 16:38; Status DC Quetiapine Fumarate (SEROquel) 50 mg QHS PO Last administered on 03/12/18at 20: 10; Start 03/10/18 at 21:00; Stop 03/13/18 at 16:35; Status DC Risperidone (RisperDAL) 0.25 mg HS PO Last administered on 03/15/18at 19:34; Start 03/13/18 at 21:00; Stop 03/16/18 at 16:33; Status DC Risperidone (RisperDAL) 0.5 mg HS PO Last administered on 03/16/18at 21:23; Start 03/16/18 at 21:00 Active Scripts Active Reported I-Marbin Tablet (Vit A,C & E/Lutein/Minerals) 1 Each Tablet 1 Each PO Spironolactone 25 Mg Tablet 25 Mg PO DAILY Spiriva (Tiotropium [place]) 18 Mcg Cap.w.dev 18 Mcg IH DAILY Seroquel (Quetiapine Fumarate) 25 Mg Tablet 25 Mg PO HS Potassium Gluconate 99 Mg Tablet 99 Mg PO DAILY Prilosec Otc (Omeprazole Magnesium) 20 Mg Tablet.dr 40 Mg PO DAILY Ferrous Sulfate 325 Mg Tablet 325 Mg PO BID Lexapro (Escitalopram Oxalate) 5 Mg Tablet 5 Mg PO DAILY Aricept (Donepezil Hcl) 10 Mg Tablet 10 Mg PO HS Vitamin D3 (Cholecalciferol (Vitamin D3)) 1,000 Unit Tablet 1,000 Unit PO DAILY Captopril 12.5 Mg Tablet 12.5 Mg PO TID Calcium (Calcium Carbonate) 500 Mg Tablet 500 Mg PO DAILY Lipitor (Atorvastatin Calcium) 40 Mg Tablet 40 Mg PO QHS Aspirin 81 Mg Tab.chew 81 Mg PO DAILY I have reviewed the current psychotropics carefully including drug interactions. Risk benefit ratio favors no change other than as noted in my dictated progress note. 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
--- NOTE | 2018-03-17 00:35 | PN ---
DATE: 03/15/2018 This is a late entry for 03/15/2018 covers elements not covered in my initial note. SUBJECTIVE: I met with the patient in the evening. The patient slept 8-1/2 hours previous evening. He has been somewhat irritable that he had a roommate, compliant with medications. I met with him in his room at length in the evening. He is still convinced that if he sent a message to go to the [employer], he will go outside to wait for the capsule, difficult to argue with him. Still delusional. REVIEW OF SYSTEMS: No CV, , pulmonary, eye, ENT system symptoms on review. MENTAL STATUS EXAM: Oriented to himself and situation. Speech is coherent, has some latency. Abstraction fair, computation impaired, language function intact. Short-term memory is impaired, somewhat paranoid. No suicidal or homicidal ideation. LABORATORY DATA: Reviewed. 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 PLAN: No change from initial note. We may need to increase Risperdal gradually. Continue Celexa and Aricept. MAN Katlyn HERBERT MD DR: JAN/kristina JOB#: [id number] / [id number]
[2018-03-17] MEDS: IPRATRPIUM/ALBUTEROL 0.5/2.5MG 3 ML NEBU. NEB SCH ×4 (04:59→20:34)
[2018-03-17 06:28] VITALS: BP 109/65
[2018-03-17] MEDS: PANTOPRAZOLE 40 MG TABLET. PO SCH (08:40)
[2018-03-17] MEDS: ASPIRIN 81 MG TAB.CHEW PO SCH (08:40)
[2018-03-17] MEDS: CITALOPRAM 10 MG TABLET. PO SCH (08:40)
[2018-03-17] MEDS: SPIRONOLACTONE 25 MG TABLET PO SCH (08:40)
[2018-03-17] MEDS: LACTOBACILLUS RHAMNOSUS GG 1 CAPSULE. PO SCH ×2 (08:40→19:38)
[2018-03-17] MEDS: AMOXICILLIN/K CLAV 500/125MG TABLET. PO SCH ×2 (08:40→19:38)
[2018-03-17] MEDS: CHOLECALCIFEROL (VITAMIN D3) 1,000 UNIT TABLET PO SCH (08:41)
[2018-03-17] MEDS: CETIRIZINE HCL 10 MG TABLET PO SCH (08:41)
[2018-03-17] MEDS: CALCIUM CARBONATE 500 MG TABLET PO SCH (08:41)
[2018-03-17] MEDS: MULTIVITAMIN I-VITE TABLET. PO SCH (08:41)
[2018-03-17] MEDS: FERROUS SULFATE 325 MG TABLET. PO SCH ×2 (08:41→19:39)
--- NOTE | 2018-03-17 10:37 | NUR ---
SW spoke to pt. regarding placement coming to assess him this afternoon. Pt. shared that he likes that facility but was confused as to why he needed to go there. He then began talking about how his daughter is not to be trusted. SW spoke with pt. daughter regarding possible placement and the prior discussion with pt.
--- NOTE | 2018-03-17 11:41 | NUR ---
Assumed care of pt @ approx 0700. Pt was sitting up in a chair in his room fully dressed, neat and clean at the time of our initial encounter. Pt A/O x self and date, very pleasant and cooperative. Denies pain. Compliant w/medications taken whole with water. Pt is clearly delusional - he talked about how no one believes him about "the tube" that can transport people to the [employer] almost instantly. He went on to say that "it's not quite instant, it takes about 26 minutes from here." He said he spoke to "the doctor" about this, and the doctor indicated that he had read all about this tube in [employer] magazine. Also signs of paranoia - he said that no one else believes him, and he doesn't need to be here because what he says is correct, and "everyone else is in denial." No signs of hallucinations noted so far this shift. No inappropriate behaviors. Pt has remained withdrawn to his room most of the shift. Currently sitting in his room quietly - no needs voiced @ this time. Will continue to monitor and assist pt in working towards his treatment and discharge goals.
--- NOTE | 2018-03-17 14:52 | PN ---
DATE: 03/16/2018 PSYCHIATRIC PROGRESS NOTE This late entry 03/16/2018 covers elements not covered in my initial note. SUBJECTIVE: I met with the patient in the evening at length in his room. The patient slept 8-1/4 hours previous night. He has been pleasant, cooperative, insistent that he was going to be discharged, wanting his belongings. In the morning, he said he had talked to the [facility]ELINE and was needed at the [employer]. REVIEW OF SYSTEMS: No CV, , pulmonary, eye, ENT system symptoms on review. MENTAL STATUS EXAM: I met with him in his room. He is oriented to himself and situation. Speech has some latency, coherent. Abstraction fair, computation impaired, language function intact, attention span short. Mood and affect somewhat withdrawn, still psychotic. LABORATORY DATA: Reviewed. IMPRESSION: Psychotic disorder, unspecified; major neurocognitive disorder, early Alzheimer, vascular with delusions. Rest unchanged. PLAN: Increase Risperdal from 0.25 mg at bedtime to 0.5 mg at bedtime. Maintain Celexa, Aricept at current dosage. MAN Katlyn HERBERT MD DR: JAN/kristina JOB#: [id number] / [id number]
--- NOTE | 2018-03-17 16:06 | NUR ---
Pt. possible new placement, [facility], assessed pt. Staff stated they would need clinical update on pt. towards the end of the week but believes they will be able to place pt. at their facility. Pt. spoke with pt. daughter to update her on facility assessment. SW will continue to touch base with pt. daughter as pt. nears discharge date, tentatively schedule for 03/23/2018.
[2018-03-17 16:13] VITALS: BP 127/65
[2018-03-17] MEDS: DONEPEZIL HCL 10 MG TABLET PO SCH (19:38)
[2018-03-17] MEDS: risperiDONE 0.5 MG TABLET. PO SCH (19:39)
[2018-03-17] MEDS: ATORVASTATIN CALCIUM 20 MG TABLET PO SCH (19:39)
--- NOTE | 2018-03-17 20:59 | NUR ---
Nursing note: Assumed care of pt in his room. He was pleasant, compliant, and cooperative. No delusional thoughts at this time. He was in bed but awake. No irritation or c/o pain at this time.
[2018-03-18] MEDS: IPRATRPIUM/ALBUTEROL 0.5/2.5MG 3 ML NEBU. NEB SCH ×4 (05:22→20:48)
[2018-03-18 06:01] VITALS: BP 106/62
[2018-03-18] MEDS: ASPIRIN 81 MG TAB.CHEW PO SCH (08:03)
[2018-03-18] MEDS: FERROUS SULFATE 325 MG TABLET. PO SCH ×2 (08:03→19:43)
[2018-03-18] MEDS: MULTIVITAMIN I-VITE TABLET. PO SCH (08:03)
[2018-03-18] MEDS: CALCIUM CARBONATE 500 MG TABLET PO SCH (08:03)
[2018-03-18] MEDS: CETIRIZINE HCL 10 MG TABLET PO SCH (08:03)
[2018-03-18] MEDS: SPIRONOLACTONE 25 MG TABLET PO SCH (08:03)
[2018-03-18] MEDS: AMOXICILLIN/K CLAV 500/125MG TABLET. PO SCH ×2 (08:03→19:43)
[2018-03-18] MEDS: CHOLECALCIFEROL (VITAMIN D3) 1,000 UNIT TABLET PO SCH (08:03)
[2018-03-18] MEDS: PANTOPRAZOLE 40 MG TABLET. PO SCH (08:03)
[2018-03-18] MEDS: LACTOBACILLUS RHAMNOSUS GG 1 CAPSULE. PO SCH ×2 (08:03→19:43)
--- NOTE | 2018-03-18 11:51 | NUR ---
Assumed care of pt @ approx 0700. Pt was walking in the hallway at the time of our initial encounter. He is A/O to self and . So far today the pt has not mentioned "the tube" that he believes will transport people to the [employer]. He is pleasantly confused, but compliant. Took his AM meds with no issues. Was cooperative for his shower this morning, as well. Denies pain. Pt is currently on his way down the kiran to the Dining Room for lunch. No needs voiced @ this time.Will continue to monitor and assist pt in working towards his treatment and discharge goals.
[2018-03-18 16:41] VITALS: BP 104/57
[2018-03-18] MEDS: ATORVASTATIN CALCIUM 20 MG TABLET PO SCH (19:43)
[2018-03-18] MEDS: risperiDONE 0.5 MG TABLET. PO SCH (19:43)
[2018-03-18] MEDS: DONEPEZIL HCL 10 MG TABLET PO SCH (19:43)
--- NOTE | 2018-03-18 19:57 | PN ---
DATE: 03/17/2018 PSYCHIATRIC PROGRESS NOTE This late entry 03/17/2018 covers elements not covered in my initial note. SUBJECTIVE: I met with the patient in the evening in his room at great length. Earlier in the day, staff had called me. He was getting his belongings ready, demanding to leave, somewhat delusional, slept 8-3/4 hours previous night, compliant with medications, somewhat obsessive. REVIEW OF SYSTEMS: No CV, , pulmonary, eye, ENT system symptoms on review. Reliability poor. MENTAL STATUS EXAM: Oriented to himself and situation. Speech has some latency, coherent. Abstraction fair, computation impaired, language function intact, attention span short. Mood and affect remain somewhat withdrawn at times. During the individual visit, we addressed at length what he would do if he felt someone was calling him to go to the [employer]. He said the General was "here today and told me all about it." He remains quite delusional. No suicidal or homicidal ideation. Attention span short. Language function intact. IMPRESSION: Major neurocognitive disorder, early Alzheimer, vascular with delusion, depression, obsessive-compulsive disorder, anxiety disorder, unspecified. PLAN: Change Celexa to Luvox 25 mg at bedtime. Continue Aricept, Risperdal at current dosage. MAN Katlyn HERBERT MD DR: JAN/kristina JOB#: [id number] / [id number]
--- NOTE | 2018-03-18 22:48 | PDOC ---
Exam Note: Musa Note: Late entry for DOS 03/17/2018. Please also refer to the separate dictated note~ for this date of service dictated separately.~Patient seen individually. Discussed the patient with Nursing staff reviewed the chart.~Reviewed interim history and current functioning. Reviewed vital signs,~Labs/ Radiology~and current medications noted below. Continue current treatment with the changes noted in the dictated addendum note Assessment: Vital Signs: VS - Last 72 Hours, by Label Date Time Temp Pulse Resp B/P (MAP) Pulse Ox O2 Delivery O2 Flow Rate FiO2 03/18/18 20:10 95 Room Air 03/18/18 16:43 93 Room Air 03/18/18 16:41 98.0 83 17 104/57 (73) 92 03/18/18 11:37 94 Room Air 03/18/18 06:01 97.1 72 20 106/62 (77) 93 03/18/18 05:00 95 Room Air 03/17/18 19:55 94 Room Air 03/17/18 16:13 95 Room Air 03/17/18 16:13 97.6 78 19 127/65 (85) 92 Room Air 03/17/18 10:58 95 Room Air 03/17/18 06:46 93 Room Air 03/17/18 06:28 98.2 80 16 109/65 (80) 88 Room Air 03/17/18 04:59 92 Room Air 03/16/18 20:55 95 Room Air 03/16/18 16:08 93 Room Air 03/16/18 15:15 98.1 75 20 107/58 (74) 94 Room Air 03/16/18 12:01 95 Room Air 03/16/18 06:18 97.0 86 18 121/66 (84) 92 03/16/18 05:53 93 Room Air Vital Signs Date Time Temp Pulse Resp B/P (MAP) Pulse Ox O2 Delivery O2 Flow Rate FiO2 03/18/18 20:10 95 Room Air 03/18/18 16:41 98.0 83 17 104/57 (73) I&O Intake and Output 03/18/18 07:00 Intake Total 960 ml Balance 960 ml Intake Oral 960 ml Current Medications: Meds: Current Medications Calcium Carbonate/ Glycine (Oscal) 500 mg DAILY PO Last administered on at 08:03; Start 03/07/18 at 09:00 Vitamin D (Vitamin D3) 1,000 unit DAILY PO Last administered on 03/18/18 08:03 ; Start 03/07/18 at 09:00 Ferrous Sulfate (Feosol) 325 mg BID PO Last administered on 03/18/18at 19:43; Start 03/06/18 at 21:00 Multivitamins/ Minerals (I-Marbin) 1 tab DAILY PO Last administered on 03/18/18at 08:03; Start 03/07/18 at 09:00 Aspirin (Children'S Aspirin) 81 mg DAILYWBKFT PO Last administered on 08:03; Start 03/07/18 at 08:00 Donepezil HCl (Aricept) 10 mg QHS PO Last administered on 03/18/18 19:43; Start 03/06/18 at 21:00 Citalopram Hydrobromide (CeleXA) 10 mg DAILY PO Last administered on 03/17/18at 08:40; Start 03/07/18 at 09:00; Stop 03/17/18 at 16:35; Status DC Pantoprazole Sodium (Protonix) 40 mg DAILYAC PO Last administered on 03/18/18at 08:03; Start 03/07/18 at 07:30 Non-Formulary Medication (Potassium Gluconate ) 99 mg DAILY PO ; Start at 09:00; Stop 03/07/18 at 09:00; Status DC Quetiapine Fumarate (SEROquel) 25 mg HS PO Last administered on 03/08/18at 19: 48; Start 03/06/18 at 21:00; Stop 03/09/18 at 16:27; Status DC Spironolactone (Aldactone) 25 mg DAILY PO Last administered on 03/18/18at 08:03 ; Start 03/07/18 at 09:00 Non-Formulary Medication (Tiotropium [place] (Spiriva)) 18 mcg DAILY IH ; Start 03/07/18 at 09:00; Stop 03/07/18 at 09:00; Status DC Acetaminophen (Tylenol) 650 mg PRN Q6HRS PRN PO PAIN / TEMP; Start 03/06/18 at 20:30 Multi-Ingredient Ointment (Analgesic [place]) 1 ema PRN QID PRN TP MUSCLE PAIN; Start 03/06/18 at 20:30 Al Hydroxide/Mg Hydroxide (Mylanta Plus Xs) 15 ml PRN AFTMEALHC PRN PO DYSPEPSIA; Start 03/06/18 at 20:30 Magnesium Hydroxide (Milk Of Magnesia) 2,400 mg PRN QHS PRN PO CONSTIPATION; Start 03/06/18 at 20:30 Albuterol/ Ipratropium (Duoneb) 3 ml RTQID NEB Last administered on 03/18/18at 20:48; Start 03/07/18 at 08:00 Influenza Virus Vaccine (Afluria Trivalent [id number] Syringe) 0.5 ml ONCE ONCE VAX IM ; Start 03/07/18 at 09:00; Stop 03/07/18 at 09:01; Status DC Atorvastatin Calcium (Lipitor) 40 mg QHS PO Last administered on 03/18/18at 19: 43; Start 03/07/18 at 21:00 Lisinopril (Prinivil) 5 mg BID PO Last administered on 03/12/18at 07:56; Start 03/07/18 at 09:00; Stop 03/13/18 at 15:16; Status DC Ondansetron HCl (Zofran Odt) 4 mg PRN Q8HRS PRN PO NAUSEA/VOMITING; Start at 15:30 Trimethoprim/ Sulfamethoxazole (Bactrim Ds) 1 tab BID PO Last administered on 03/09/18at 07:59; Start 03/09/18 at 09:00; Stop 03/09/18 at 14:08; Status DC Amoxicillin/ Clavulanate Potassium (Augmentin 500/ 125mg) 1 tab BID PO Last administered on 03/18/18at 19:43; Start 03/09/18 at 21:00; Stop 03/19/18 at 20: 59 Cetirizine HCl (ZyrTEC) 10 mg DAILY PO Last administered on 03/18/18at 08:03; Start 03/09/18 at 15:00 Vitamin D (Vitamin D3) 50,000 unit WEEKLY PO Last administered on 03/16/18at 09: 24; Start 03/09/18 at 15:00 Lactobacillus Rhamnosus (Culturelle) 1 cap BID PO Last administered on at 19:43; Start 03/09/18 at 21:00 Quetiapine Fumarate (SEROquel) 37.5 mg HS PO Last administered on 03/09/18at 20 :37; Start 03/09/18 at 21:00; Stop 03/10/18 at 16:38; Status DC Quetiapine Fumarate (SEROquel) 50 mg QHS PO Last administered on 03/12/18at 20: 10; Start 03/10/18 at 21:00; Stop 03/13/18 at 16:35; Status DC Risperidone (RisperDAL) 0.25 mg HS PO Last administered on 03/15/18at 19:34; Start 03/13/18 at 21:00; Stop 03/16/18 at 16:33; Status DC Risperidone (RisperDAL) 0.5 mg HS PO Last administered on 03/18/18at 19:43; Start 03/16/18 at 21:00 Fluvoxamine Maleate (Luvox) 25 mg HS PO Last administered on 03/18/18at 19:43; Start 03/17/18 at 21:00; Stop 03/19/18 at 22:00 Fluvoxamine Maleate (Luvox) 50 mg HS PO ; Start 03/20/18 at 21:00 Active Scripts Active Reported I-Marbin Tablet (Vit A,C & E/Lutein/Minerals) 1 Each Tablet 1 Each PO Spironolactone 25 Mg Tablet 25 Mg PO DAILY Spiriva (Tiotropium [place]) 18 Mcg Cap.w.dev 18 Mcg IH DAILY Seroquel (Quetiapine Fumarate) 25 Mg Tablet 25 Mg PO HS Potassium Gluconate 99 Mg Tablet 99 Mg PO DAILY Prilosec Otc (Omeprazole Magnesium) 20 Mg Tablet.dr 40 Mg PO DAILY Ferrous Sulfate 325 Mg Tablet 325 Mg PO BID Lexapro (Escitalopram Oxalate) 5 Mg Tablet 5 Mg PO DAILY Aricept (Donepezil Hcl) 10 Mg Tablet 10 Mg PO HS Vitamin D3 (Cholecalciferol (Vitamin D3)) 1,000 Unit Tablet 1,000 Unit PO DAILY Captopril 12.5 Mg Tablet 12.5 Mg PO TID Calcium (Calcium Carbonate) 500 Mg Tablet 500 Mg PO DAILY Lipitor (Atorvastatin Calcium) 40 Mg Tablet 40 Mg PO QHS Aspirin 81 Mg Tab.chew 81 Mg PO DAILY I have reviewed the current psychotropics carefully including drug interactions. Risk benefit ratio favors no change other than as noted in my dictated progress note. 

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
--- NOTE | 2018-03-18 23:18 | PDOC ---
Exam Note: Musa Note: Please also refer to the separate dictated note~for this date of service dictated separately.~Patient seen individually. Discussed the patient with Nursing staff reviewed the chart.~Reviewed interim history and current functioning. Reviewed vital signs,~Labs/ Radiology~and current medications noted below. Continue current treatment with the changes noted in the dictated addendum note Assessment: Vital Signs: Vital Signs Date Time Temp Pulse Resp B/P (MAP) Pulse Ox O2 Delivery O2 Flow Rate FiO2 03/18/18 20:10 95 Room Air 03/18/18 16:41 98.0 83 17 104/57 (73) I&O Intake and Output 03/18/18 07:00 Intake Total 960 ml Balance 960 ml Intake Oral 960 ml Current Medications: Meds: Current Medications Calcium Carbonate/ Glycine (Oscal) 500 mg DAILY PO Last administered on 08:03; Start 03/07/18 at 09:00 Vitamin D (Vitamin D3) 1,000 unit DAILY PO Last administered on 03/18/18 08:03 ; Start 03/07/18 at 09:00 Ferrous Sulfate (Feosol) 325 mg BID PO Last administered on 03/18/18 19:43; Start 03/06/18 at 21:00 Multivitamins/ Minerals (I-Marbin) 1 tab DAILY PO Last administered on 03/18/18 08:03; Start 03/07/18 at 09:00 Aspirin (Children'S Aspirin) 81 mg DAILYWBKFT PO Last administered on 08:03; Start 03/07/18 at 08:00 Donepezil HCl (Aricept) 10 mg QHS PO Last administered on 03/18/18at 19:43; Start 03/06/18 at 21:00 Citalopram Hydrobromide (CeleXA) 10 mg DAILY PO Last administered on 03/17/18at 08:40; Start 03/07/18 at 09:00; Stop 03/17/18 at 16:35; Status DC Pantoprazole Sodium (Protonix) 40 mg DAILYAC PO Last administered on 03/18/18 08:03; Start 03/07/18 at 07:30 Non-Formulary Medication (Potassium Gluconate ) 99 mg DAILY PO ; Start at 09:00; Stop 03/07/18 at 09:00; Status DC Quetiapine Fumarate (SEROquel) 25 mg HS PO Last administered on 03/08/18at 19: 48; Start 03/06/18 at 21:00; Stop 03/09/18 at 16:27; Status DC Spironolactone (Aldactone) 25 mg DAILY PO Last administered on 03/18/18at 08:03 ; Start 03/07/18 at 09:00 Non-Formulary Medication (Tiotropium [place] (Spiriva)) 18 mcg DAILY IH ; Start 03/07/18 at 09:00; Stop 03/07/18 at 09:00; Status DC Acetaminophen (Tylenol) 650 mg PRN Q6HRS PRN PO PAIN / TEMP; Start 03/06/18 at 20:30 Multi-Ingredient Ointment (Analgesic [place]) 1 ema PRN QID PRN TP MUSCLE PAIN; Start 03/06/18 at 20:30 Al Hydroxide/Mg Hydroxide (Mylanta Plus Xs) 15 ml PRN AFTMEALHC PRN PO DYSPEPSIA; Start 03/06/18 at 20:30 Magnesium Hydroxide (Milk Of Magnesia) 2,400 mg PRN QHS PRN PO CONSTIPATION; Start 03/06/18 at 20:30 Albuterol/ Ipratropium (Duoneb) 3 ml RTQID NEB Last administered on 03/18/18at 20:48; Start 03/07/18 at 08:00 Influenza Virus Vaccine (Afluria Trivalent [id number] Syringe) 0.5 ml ONCE ONCE VAX IM ; Start 03/07/18 at 09:00; Stop 03/07/18 at 09:01; Status DC Atorvastatin Calcium (Lipitor) 40 mg QHS PO Last administered on 03/18/18at 19: 43; Start 03/07/18 at 21:00 Lisinopril (Prinivil) 5 mg BID PO Last administered on 03/12/18at 07:56; Start 03/07/18 at 09:00; Stop 03/13/18 at 15:16; Status DC Ondansetron HCl (Zofran Odt) 4 mg PRN Q8HRS PRN PO NAUSEA/VOMITING; Start at 15:30 Trimethoprim/ Sulfamethoxazole (Bactrim Ds) 1 tab BID PO Last administered on 03/09/18 07:59; Start 03/09/18 at 09:00; Stop 03/09/18 at 14:08; Status DC Amoxicillin/ Clavulanate Potassium (Augmentin 500/ 125mg) 1 tab BID PO Last administered on 03/18/18 19:43; Start 03/09/18 at 21:00; Stop 03/19/18 at 20: 59 Cetirizine HCl (ZyrTEC) 10 mg DAILY PO Last administered on 03/18/18 08:03; Start 03/09/18 at 15:00 Vitamin D (Vitamin D3) 50,000 unit WEEKLY PO Last administered on 03/16/18 09: 24; Start 03/09/18 at 15:00 Lactobacillus Rhamnosus (Culturelle) 1 cap BID PO Last administered on 19:43; Start 03/09/18 at 21:00 Quetiapine Fumarate (SEROquel) 37.5 mg HS PO Last administered on 03/09/18at 20 :37; Start 03/09/18 at 21:00; Stop 03/10/18 at 16:38; Status DC Quetiapine Fumarate (SEROquel) 50 mg QHS PO Last administered on 03/12/18at 20: 10; Start 03/10/18 at 21:00; Stop 03/13/18 at 16:35; Status DC Risperidone (RisperDAL) 0.25 mg HS PO Last administered on 03/15/18at 19:34; Start 03/13/18 at 21:00; Stop 03/16/18 at 16:33; Status DC Risperidone (RisperDAL) 0.5 mg HS PO Last administered on 03/18/18 19:43; Start 03/16/18 at 21:00 Fluvoxamine Maleate (Luvox) 25 mg HS PO Last administered on 03/18/18 19:43; Start 03/17/18 at 21:00; Stop 03/19/18 at 22:00 Fluvoxamine Maleate (Luvox) 50 mg HS PO ; Start 03/20/18 at 21:00 Active Scripts Active Reported I-Marbin Tablet (Vit A,C & E/Lutein/Minerals) 1 Each Tablet 1 Each PO Spironolactone 25 Mg Tablet 25 Mg PO DAILY Spiriva (Tiotropium [place]) 18 Mcg Cap.w.dev 18 Mcg IH DAILY Seroquel (Quetiapine Fumarate) 25 Mg Tablet 25 Mg PO HS Potassium Gluconate 99 Mg Tablet 99 Mg PO DAILY Prilosec Otc (Omeprazole Magnesium) 20 Mg Tablet.dr 40 Mg PO DAILY Ferrous Sulfate 325 Mg Tablet 325 Mg PO BID Lexapro (Escitalopram Oxalate) 5 Mg Tablet 5 Mg PO DAILY Aricept (Donepezil Hcl) 10 Mg Tablet 10 Mg PO HS Vitamin D3 (Cholecalciferol (Vitamin D3)) 1,000 Unit Tablet 1,000 Unit PO DAILY Captopril 12.5 Mg Tablet 12.5 Mg PO TID Calcium (Calcium Carbonate) 500 Mg Tablet 500 Mg PO DAILY Lipitor (Atorvastatin Calcium) 40 Mg Tablet 40 Mg PO QHS Aspirin 81 Mg Tab.chew 81 Mg PO DAILY I have reviewed the current psychotropics carefully including drug interactions. Risk benefit ratio favors no change other than as noted in my dictated progress note. 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
[2018-03-19] MEDS: IPRATRPIUM/ALBUTEROL 0.5/2.5MG 3 ML NEBU. NEB SCH ×4 (05:29→20:44)
[2018-03-19 05:57] VITALS: BP 95/53
[2018-03-19] MEDS: PANTOPRAZOLE 40 MG TABLET. PO SCH (07:45)
[2018-03-19] MEDS: LACTOBACILLUS RHAMNOSUS GG 1 CAPSULE. PO SCH ×2 (08:15→19:27)
[2018-03-19] MEDS: CALCIUM CARBONATE 500 MG TABLET PO SCH (08:15)
[2018-03-19] MEDS: FERROUS SULFATE 325 MG TABLET. PO SCH ×2 (08:15→19:26)
[2018-03-19] MEDS: ASPIRIN 81 MG TAB.CHEW PO SCH (08:15)
[2018-03-19] MEDS: MULTIVITAMIN I-VITE TABLET. PO SCH (08:15)
[2018-03-19] MEDS: CHOLECALCIFEROL (VITAMIN D3) 1,000 UNIT TABLET PO SCH (08:15)
[2018-03-19] MEDS: SPIRONOLACTONE 25 MG TABLET PO SCH (08:15)
[2018-03-19] MEDS: CETIRIZINE HCL 10 MG TABLET PO SCH (08:15)
[2018-03-19] MEDS: AMOXICILLIN/K CLAV 500/125MG TABLET. PO SCH (08:15)
--- NOTE | 2018-03-19 08:50 | NUR ---
WEEKLY ACTIVITY THERAPY NOTE Date of Admission: 03/06/2018 Date of AT Assessment: 03/09/2018 Goal aimed: to increase social engagement Initial goal: Pt. will participate in at least one group per day. Weekly progress towards goal: did not achieve Group participation level: minimal Behaviors observed: Pt. often sleeps through groups; when given reminders about groups, sometimes Pt. will come participate and other times he will decline; Pt. tends to prefer trivia group activities and is generally compliant with staff Plan: no change to goal
--- NOTE | 2018-03-19 12:50 | NUR ---
SW was standing in the hallway after lunch when pt. walked by. He asked SW when he was going to get out of this place. SW reminded pt. that he would be transiting to a possible new placement, [facility]. He stated he is going back to his apartment. SW asked pt. if he remembered talking to his daughter about this transition and pt. angrily said we should not be listening to his daughter and that she was in care home. Pt. aggressively pushed on his walker and walked away.
--- NOTE | 2018-03-19 12:54 | NUR ---
WEEKLY NOTE: Pt. daughter, Lucinda was contacted to be part of treatment team. It was reported pt. did not sleep well last night which is unusual for him. Pt. has been eating well. He continues to have delusions such as stating his daughter tore up all of his furniture and saying the General was here the night before. Daughter reports pt. has trouble letting these delusions go. Medications continue to be adjusted and monitored. A tentative discharge date has been scheduled for 03/23/2018.
--- NOTE | 2018-03-19 13:03 | NUR ---
SW contacted possible new placement, [facility], and will fax over updated medical notes for assessment.
[2018-03-19 14:57] LABS: BACTERIA,URINE 0 /HPF (0-FEW); BILIRUBIN,URINE NEG (NEG); CLARITY,URINE CLEAR; COLOR,URINE YELLOW; GLUCOSE,URINE NEG (NEG); NITRITE,URINE NEG (NEG); RBC,URINE 0 /HPF (0-2); SQUAMOUS EPITHELIAL CELL,UR OCC /LPF; UROBILINOGEN,URINE 0.2 mg/dL (0.2 mg/dL); WBC,URINE 0 /HPF (0-4)
[2018-03-19 16:01] VITALS: BP 100/74
--- NOTE | 2018-03-19 17:52 | NUR ---
Pt compliant w/ meds. Agitated briefly according to SW, but approach pt in his room, found him calm. Politely declined midday group but accepted fresh water from this nurse.
[2018-03-19] MEDS: risperiDONE 0.5 MG TABLET. PO SCH (19:27)
[2018-03-19] MEDS: DONEPEZIL HCL 10 MG TABLET PO SCH (19:27)
[2018-03-19] MEDS: ATORVASTATIN CALCIUM 20 MG TABLET PO SCH (19:27)
--- NOTE | 2018-03-20 02:19 | NUR ---
Behavior Intervention Response and Plan: BIRP Note: Behavior: Assumed Care of patient, patient located in Patient Room at shift change. Patient exhibited the following behavior Calm, Cooperative, Withdrawn. Brief assessment on rounds of vital signs, medication needs, lab studies, and pain. Treatment plan problems 1 and 2. Intervention: Patient assessed and the following interventions initiated safety checks 15 Minute Checks Cognitive Assessment , Head to toe Assessment , Medications. Response: After interactions and interventions patient responded in the following manner, Calm , Cooperative ,Compliant. Continue to assess behaviors and condition will continue to monitor throughout the shift as needed. Patient educated on ADL's, and hand hygiene. Plan: Continue to monitor Master Treatment Plan for patient's progress toward short term goals of Decreased Agitation, Improved Mood, skilled nursing goals to return to previous living setting vs placement. Continue to assess patient for changes in above assessment. Monitor for medication needs, pain, and safety concerns. Hourly rounding performed to ensure safe environment.
[2018-03-20] MEDS: IPRATRPIUM/ALBUTEROL 0.5/2.5MG 3 ML NEBU. NEB SCH ×4 (05:18→19:58)
[2018-03-20 06:20] VITALS: BP 95/54
[2018-03-20] MEDS: SPIRONOLACTONE 25 MG TABLET PO SCH (07:49)
[2018-03-20] MEDS: CHOLECALCIFEROL (VITAMIN D3) 1,000 UNIT TABLET PO SCH (07:49)
[2018-03-20] MEDS: ASPIRIN 81 MG TAB.CHEW PO SCH (07:49)
[2018-03-20] MEDS: CETIRIZINE HCL 10 MG TABLET PO SCH (07:50)
[2018-03-20] MEDS: FERROUS SULFATE 325 MG TABLET. PO SCH ×2 (07:50→19:32)
[2018-03-20] MEDS: MULTIVITAMIN I-VITE TABLET. PO SCH (07:50)
[2018-03-20] MEDS: LACTOBACILLUS RHAMNOSUS GG 1 CAPSULE. PO SCH ×2 (07:50→19:32)
[2018-03-20] MEDS: CALCIUM CARBONATE 500 MG TABLET PO SCH (07:50)
[2018-03-20] MEDS: PANTOPRAZOLE 40 MG TABLET. PO SCH (07:50)
--- NOTE | 2018-03-20 09:35 | NUR ---
Behavior Intervention Response and Plan: BIRP Note: Behavior: Assumed Care of patient, patient located in Dining Room at shift change. Patient exhibited the following behavior Calm, Delusions, Compliant. Brief assessment on rounds of vital signs, medication needs, lab studies, and pain. Treatment plan problems . Intervention: Patient assessed and the following interventions initiated safety checks 15 Minute Checks Cognitive Assessment , Head to toe Assessment , Medications. Response: After interactions and interventions patient responded in the following manner, Calm , Compliant ,Withdrawn. Continue to assess behaviors and condition will continue to monitor throughout the shift as needed. Patient educated on ADL's, and hand hygiene. 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 Continue to assess patient for changes in above assessment. Monitor for medication needs, pain, and safety concerns. Hourly rounding performed to ensure safe environment.
--- NOTE | 2018-03-20 10:51 | NUR ---
SW faxed updated paperwork to [facility] for placement assessment.
--- NOTE | 2018-03-20 14:45 | NUR ---
AZRA left [facility]. for Haydee at [facility] to determine admittance tentatively scheduled for 03/23/2018.
[2018-03-20 16:02] VITALS: BP 100/62
--- NOTE | 2018-03-20 17:39 | NUR ---
pt up for meals. out to day room at times. compliant with meds. has been noted to talking to self in room. has been in pleasant spirits.
[2018-03-20] MEDS: DONEPEZIL HCL 10 MG TABLET PO SCH (19:32)
[2018-03-20] MEDS: risperiDONE 0.5 MG TABLET. PO SCH (19:32)
[2018-03-20] MEDS: ATORVASTATIN CALCIUM 20 MG TABLET PO SCH (19:32)
--- NOTE | 2018-03-20 19:45 | PN ---
DATE: 03/18/2018 PSYCHIATRIC PROGRESS NOTE This late entry 03/18/2018 covers elements not covered in my initial note. SUBJECTIVE: I met with the patient in the evening at length in his room. The patient slept 7-3/4 hours previous night. He remains withdrawn, spends much time in his room, still believes the [employer] may call in to [facility] [employer] and he will have to ago, and I processed this at length with him. He remains somewhat obsessive. REVIEW OF SYSTEMS: Hard of hearing. No CV, , pulmonary, eye system symptoms on review. MENTAL STATUS EXAM: Oriented to himself and situation. Speech has some latency, coherent. Abstraction fair, computation impaired, language function intact, attention span short. Mood and affect somewhat withdrawn, paranoid, obsessive. LABORATORY DATA: Reviewed. IMPRESSION: Unchanged from initial note. PLAN: Increase Luvox from 25 mg at bedtime to 50 mg at bedtime. Continue rest unchanged. MAN Katlyn HERBERT MD DR: JAN/kristina JOB#: [id number] / [id number]
--- NOTE | 2018-03-20 19:48 | PN ---
DATE: 03/19/2018 PSYCHIATRIC PROGRESS NOTE This late entry 03/19/2018 covers elements not covered in my initial note. SUBJECTIVE: I met with the patient in the evening and staffed at a treatment team meeting with the entire team in the morning. The patient slept 4-1/2 hours previous night. Appetite 100%. At the treatment team meeting his daughter, Samina, attended and we had a lengthy discussion about his diagnosis, treatment, disposition plans to more secure facility rather than independent living. He remains on antibiotics for his UTI and they will be discontinued on 03/19/2018 when we will repeat UA since he has had repeated UTIs in the past according to his daughter. REVIEW OF SYSTEMS: Hard of hearing. No CV, , pulmonary, eye system symptoms on review. MENTAL STATUS EXAM: Oriented to himself and situation. Speech has some latency, coherent. Abstraction fair, computation impaired, language function intact, attention span short. Mood and affect somewhat withdrawn. LABORATORY DATA: Reviewed. IMPRESSION: Major neurocognitive disorder, early Alzheimer, vascular with delusion, depression, psychotic disorder, unspecified; obsessive compulsive disorder. Rest unchanged. PLAN: From a psychiatric standpoint, repeat the UA as noted. Luvox 50 mg at bedtime, Risperdal 0.5 at bedtime, Aricept 10 mg a day, may adjust Luvox further in due course. MAN Katlyn HERBERT MD DR: JAN/kristina JOB#: [id number] / [id number]
--- NOTE | 2018-03-20 19:48 | PDOC ---
Exam Note: Musa Note: Late entry for date of service March 19, 2018. Please also refer to the separate dictated note~for this date of service dictated separately.~Patient seen individually. Discussed the patient with Nursing staff reviewed the chart.~ Reviewed interim history and current functioning. Reviewed vital signs,~Labs/ Radiology~and current medications noted below. Continue current treatment with the changes noted in the dictated addendum note Assessment: Vital Signs: VS - Last 72 Hours, by Label Date Time Temp Pulse Resp B/P (MAP) Pulse Ox O2 Delivery O2 Flow Rate FiO2 03/20/18 16:14 95 Room Air 03/20/18 16:02 97.8 71 18 100/62 (75) 96 Room Air 03/20/18 11:25 95 Room Air 03/20/18 06:20 97.8 73 16 95/54 (68) 93 Room Air 03/20/18 04:57 95 Room Air 03/19/18 20:22 96 Room Air 03/19/18 16:07 Room Air 03/19/18 16:01 97.6 68 18 100/74 (83) 95 Room Air 03/19/18 09:52 95 Room Air 03/19/18 05:57 97.1 73 18 95/53 (67) 90 03/19/18 05:05 95 Room Air 03/18/18 20:10 95 Room Air 03/18/18 16:43 93 Room Air 03/18/18 16:41 98.0 83 17 104/57 (73) 92 03/18/18 11:37 94 Room Air 03/18/18 06:01 97.1 72 20 106/62 (77) 93 03/18/18 05:00 95 Room Air 03/17/18 19:55 94 Room Air Vital Signs Date Time Temp Pulse Resp B/P (MAP) Pulse Ox O2 Delivery O2 Flow Rate FiO2 03/20/18 16:14 95 Room Air 03/20/18 16:02 97.8 71 18 100/62 (75) I&O Intake and Output 03/20/18 07:00 Intake Total 900 ml Balance 900 ml Intake Oral 900 ml # Voids 1 Current Medications: Meds: Current Medications Calcium Carbonate/ Glycine (Oscal) 500 mg DAILY PO Last administered on at 07:50; Start 03/07/18 at 09:00 Vitamin D (Vitamin D3) 1,000 unit DAILY PO Last administered on 03/20/18 07:49 ; Start 03/07/18 at 09:00 Ferrous Sulfate (Feosol) 325 mg BID PO Last administered on 03/20/18at 19:32; Start 03/06/18 at 21:00 Multivitamins/ Minerals (I-Marbin) 1 tab DAILY PO Last administered on 03/20/18at 07:50; Start 03/07/18 at 09:00 Aspirin (Children'S Aspirin) 81 mg DAILYWBKFT PO Last administered on at 07:49; Start 03/07/18 at 08:00 Donepezil HCl (Aricept) 10 mg QHS PO Last administered on 03/20/18 19:32; Start 03/06/18 at 21:00 Citalopram Hydrobromide (CeleXA) 10 mg DAILY PO Last administered on 03/17/18at 08:40; Start 03/07/18 at 09:00; Stop 03/17/18 at 16:35; Status DC Pantoprazole Sodium (Protonix) 40 mg DAILYAC PO Last administered on 03/20/18at 07:50; Start 03/07/18 at 07:30 Non-Formulary Medication (Potassium Gluconate ) 99 mg DAILY PO ; Start at 09:00; Stop 03/07/18 at 09:00; Status DC Quetiapine Fumarate (SEROquel) 25 mg HS PO Last administered on 03/08/18at 19: 48; Start 03/06/18 at 21:00; Stop 03/09/18 at 16:27; Status DC Spironolactone (Aldactone) 25 mg DAILY PO Last administered on 03/20/18at 07:49 ; Start 03/07/18 at 09:00 Non-Formulary Medication (Tiotropium [place] (Spiriva)) 18 mcg DAILY IH ; Start 03/07/18 at 09:00; Stop 03/07/18 at 09:00; Status DC Acetaminophen (Tylenol) 650 mg PRN Q6HRS PRN PO PAIN / TEMP; Start 03/06/18 at 20:30 Multi-Ingredient Ointment (Analgesic [place]) 1 ema PRN QID PRN TP MUSCLE PAIN; Start 03/06/18 at 20:30 Al Hydroxide/Mg Hydroxide (Mylanta Plus Xs) 15 ml PRN AFTMEALHC PRN PO DYSPEPSIA; Start 03/06/18 at 20:30 Magnesium Hydroxide (Milk Of Magnesia) 2,400 mg PRN QHS PRN PO CONSTIPATION; Start 03/06/18 at 20:30 Albuterol/ Ipratropium (Duoneb) 3 ml RTQID NEB Last administered on 03/20/18at 16:13; Start 03/07/18 at 08:00 Influenza Virus Vaccine (Afluria Trivalent [id number] Syringe) 0.5 ml ONCE ONCE VAX IM ; Start 03/07/18 at 09:00; Stop 03/07/18 at 09:01; Status DC Atorvastatin Calcium (Lipitor) 40 mg QHS PO Last administered on 03/20/18at 19: 32; Start 03/07/18 at 21:00 Lisinopril (Prinivil) 5 mg BID PO Last administered on 03/12/18at 07:56; Start 03/07/18 at 09:00; Stop 03/13/18 at 15:16; Status DC Ondansetron HCl (Zofran Odt) 4 mg PRN Q8HRS PRN PO NAUSEA/VOMITING; Start at 15:30 Trimethoprim/ Sulfamethoxazole (Bactrim Ds) 1 tab BID PO Last administered on 03/09/18at 07:59; Start 03/09/18 at 09:00; Stop 03/09/18 at 14:08; Status DC Amoxicillin/ Clavulanate Potassium (Augmentin 500/ 125mg) 1 tab BID PO Last administered on 03/19/18at 08:15; Start 03/09/18 at 21:00; Stop 03/19/18 at 20: 59; Status DC Cetirizine HCl (ZyrTEC) 10 mg DAILY PO Last administered on 03/20/18at 07:50; Start 03/09/18 at 15:00 Vitamin D (Vitamin D3) 50,000 unit WEEKLY PO Last administered on 03/16/18at 09: 24; Start 03/09/18 at 15:00 Lactobacillus Rhamnosus (Culturelle) 1 cap BID PO Last administered on at 19:32; Start 03/09/18 at 21:00 Quetiapine Fumarate (SEROquel) 37.5 mg HS PO Last administered on 03/09/18at 20 :37; Start 03/09/18 at 21:00; Stop 03/10/18 at 16:38; Status DC Quetiapine Fumarate (SEROquel) 50 mg QHS PO Last administered on 03/12/18at 20: 10; Start 03/10/18 at 21:00; Stop 03/13/18 at 16:35; Status DC Risperidone (RisperDAL) 0.25 mg HS PO Last administered on 03/15/18at 19:34; Start 03/13/18 at 21:00; Stop 03/16/18 at 16:33; Status DC Risperidone (RisperDAL) 0.5 mg HS PO Last administered on 03/20/18at 19:32; Start 03/16/18 at 21:00 Fluvoxamine Maleate (Luvox) 25 mg HS PO Last administered on 03/19/18at 19:27; Start 03/17/18 at 21:00; Stop 03/19/18 at 22:00; Status DC Fluvoxamine Maleate (Luvox) 50 mg HS PO Last administered on 03/20/18at 19:33; Start 03/20/18 at 21:00 Olanzapine (ZyPREXA ZYDIS) 2.5 mg PRN Q2HR PRN PO ANXIETY / AGITATION; Start 03/19/18 at 18:15 Active Scripts Active Reported I-Marbin Tablet (Vit A,C & E/Lutein/Minerals) 1 Each Tablet 1 Each PO Spironolactone 25 Mg Tablet 25 Mg PO DAILY Spiriva (Tiotropium [place]) 18 Mcg Cap.w.dev 18 Mcg IH DAILY Seroquel (Quetiapine Fumarate) 25 Mg Tablet 25 Mg PO HS Potassium Gluconate 99 Mg Tablet 99 Mg PO DAILY Prilosec Otc (Omeprazole Magnesium) 20 Mg Tablet.dr 40 Mg PO DAILY Ferrous Sulfate 325 Mg Tablet 325 Mg PO BID Lexapro (Escitalopram Oxalate) 5 Mg Tablet 5 Mg PO DAILY Aricept (Donepezil Hcl) 10 Mg Tablet 10 Mg PO HS Vitamin D3 (Cholecalciferol (Vitamin D3)) 1,000 Unit Tablet 1,000 Unit PO DAILY Captopril 12.5 Mg Tablet 12.5 Mg PO TID Calcium (Calcium Carbonate) 500 Mg Tablet 500 Mg PO DAILY Lipitor (Atorvastatin Calcium) 40 Mg Tablet 40 Mg PO QHS Aspirin 81 Mg Tab.chew 81 Mg PO DAILY I have reviewed the current psychotropics carefully including drug interactions. Risk benefit ratio favors no change other than as noted in my dictated progress note. 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
--- NOTE | 2018-03-20 22:55 | PDOC ---
Exam Note: Musa Note: Please also refer to the separate dictated note~for this date of service dictated separately.~Patient seen individually. Discussed the patient with Nursing staff reviewed the chart.~Reviewed interim history and current functioning. Reviewed vital signs,~Labs/ Radiology~and current medications noted below. Continue current treatment with the changes noted in the dictated addendum note Assessment: Vital Signs: Vital Signs Date Time Temp Pulse Resp B/P (MAP) Pulse Ox O2 Delivery O2 Flow Rate FiO2 03/20/18 20:01 96 Room Air 03/20/18 16:02 97.8 71 18 100/62 (75) I&O Intake and Output 03/20/18 07:00 Intake Total 900 ml Balance 900 ml Intake Oral 900 ml # Voids 1 Current Medications: Meds: Current Medications Calcium Carbonate/ Glycine (Oscal) 500 mg DAILY PO Last administered on 07:50; Start 03/07/18 at 09:00 Vitamin D (Vitamin D3) 1,000 unit DAILY PO Last administered on 03/20/18 07:49 ; Start 03/07/18 at 09:00 Ferrous Sulfate (Feosol) 325 mg BID PO Last administered on 03/20/18 19:32; Start 03/06/18 at 21:00 Multivitamins/ Minerals (I-Marbin) 1 tab DAILY PO Last administered on 03/20/18 07:50; Start 03/07/18 at 09:00 Aspirin (Children'S Aspirin) 81 mg DAILYWBKFT PO Last administered on at 07:49; Start 03/07/18 at 08:00 Donepezil HCl (Aricept) 10 mg QHS PO Last administered on 03/20/18at 19:32; Start 03/06/18 at 21:00 Citalopram Hydrobromide (CeleXA) 10 mg DAILY PO Last administered on 03/17/18at 08:40; Start 03/07/18 at 09:00; Stop 03/17/18 at 16:35; Status DC Pantoprazole Sodium (Protonix) 40 mg DAILYAC PO Last administered on 03/20/18at 07:50; Start 03/07/18 at 07:30 Non-Formulary Medication (Potassium Gluconate ) 99 mg DAILY PO ; Start at 09:00; Stop 03/07/18 at 09:00; Status DC Quetiapine Fumarate (SEROquel) 25 mg HS PO Last administered on 03/08/18at 19: 48; Start 03/06/18 at 21:00; Stop 03/09/18 at 16:27; Status DC Spironolactone (Aldactone) 25 mg DAILY PO Last administered on 03/20/18at 07:49 ; Start 03/07/18 at 09:00 Non-Formulary Medication (Tiotropium [place] (Spiriva)) 18 mcg DAILY IH ; Start 03/07/18 at 09:00; Stop 03/07/18 at 09:00; Status DC Acetaminophen (Tylenol) 650 mg PRN Q6HRS PRN PO PAIN / TEMP; Start 03/06/18 at 20:30 Multi-Ingredient Ointment (Analgesic [place]) 1 ema PRN QID PRN TP MUSCLE PAIN; Start 03/06/18 at 20:30 Al Hydroxide/Mg Hydroxide (Mylanta Plus Xs) 15 ml PRN AFTMEALHC PRN PO DYSPEPSIA; Start 03/06/18 at 20:30 Magnesium Hydroxide (Milk Of Magnesia) 2,400 mg PRN QHS PRN PO CONSTIPATION; Start 03/06/18 at 20:30 Albuterol/ Ipratropium (Duoneb) 3 ml RTQID NEB Last administered on 03/20/18at 19:58; Start 03/07/18 at 08:00 Influenza Virus Vaccine (Afluria Trivalent [id number] Syringe) 0.5 ml ONCE ONCE VAX IM ; Start 03/07/18 at 09:00; Stop 03/07/18 at 09:01; Status DC Atorvastatin Calcium (Lipitor) 40 mg QHS PO Last administered on 03/20/18at 19: 32; Start 03/07/18 at 21:00 Lisinopril (Prinivil) 5 mg BID PO Last administered on 03/12/18at 07:56; Start 03/07/18 at 09:00; Stop 03/13/18 at 15:16; Status DC Ondansetron HCl (Zofran Odt) 4 mg PRN Q8HRS PRN PO NAUSEA/VOMITING; Start at 15:30 Trimethoprim/ Sulfamethoxazole (Bactrim Ds) 1 tab BID PO Last administered on 03/09/18 07:59; Start 03/09/18 at 09:00; Stop 03/09/18 at 14:08; Status DC Amoxicillin/ Clavulanate Potassium (Augmentin 500/ 125mg) 1 tab BID PO Last administered on 03/19/18at 08:15; Start 03/09/18 at 21:00; Stop 03/19/18 at 20: 59; Status DC Cetirizine HCl (ZyrTEC) 10 mg DAILY PO Last administered on 03/20/18at 07:50; Start 03/09/18 at 15:00 Vitamin D (Vitamin D3) 50,000 unit WEEKLY PO Last administered on 03/16/18 09: 24; Start 03/09/18 at 15:00 Lactobacillus Rhamnosus (Culturelle) 1 cap BID PO Last administered on at 19:32; Start 03/09/18 at 21:00 Quetiapine Fumarate (SEROquel) 37.5 mg HS PO Last administered on 03/09/18at 20 :37; Start 03/09/18 at 21:00; Stop 03/10/18 at 16:38; Status DC Quetiapine Fumarate (SEROquel) 50 mg QHS PO Last administered on 03/12/18at 20: 10; Start 03/10/18 at 21:00; Stop 03/13/18 at 16:35; Status DC Risperidone (RisperDAL) 0.25 mg HS PO Last administered on 03/15/18 19:34; Start 03/13/18 at 21:00; Stop 03/16/18 at 16:33; Status DC Risperidone (RisperDAL) 0.5 mg HS PO Last administered on 03/20/18 19:32; Start 03/16/18 at 21:00 Fluvoxamine Maleate (Luvox) 25 mg HS PO Last administered on 03/19/18 19:27; Start 03/17/18 at 21:00; Stop 03/19/18 at 22:00; Status DC Fluvoxamine Maleate (Luvox) 50 mg HS PO Last administered on 03/20/18 19:33; Start 03/20/18 at 21:00 Olanzapine (ZyPREXA ZYDIS) 2.5 mg PRN Q2HR PRN PO ANXIETY / AGITATION; Start 03/19/18 at 18:15 Active Scripts Active Reported I-Marbin Tablet (Vit A,C & E/Lutein/Minerals) 1 Each Tablet 1 Each PO Spironolactone 25 Mg Tablet 25 Mg PO DAILY Spiriva (Tiotropium [place]) 18 Mcg Cap.w.dev 18 Mcg IH DAILY Seroquel (Quetiapine Fumarate) 25 Mg Tablet 25 Mg PO HS Potassium Gluconate 99 Mg Tablet 99 Mg PO DAILY Prilosec Otc (Omeprazole Magnesium) 20 Mg Tablet.dr 40 Mg PO DAILY Ferrous Sulfate 325 Mg Tablet 325 Mg PO BID Lexapro (Escitalopram Oxalate) 5 Mg Tablet 5 Mg PO DAILY Aricept (Donepezil Hcl) 10 Mg Tablet 10 Mg PO HS Vitamin D3 (Cholecalciferol (Vitamin D3)) 1,000 Unit Tablet 1,000 Unit PO DAILY Captopril 12.5 Mg Tablet 12.5 Mg PO TID Calcium (Calcium Carbonate) 500 Mg Tablet 500 Mg PO DAILY Lipitor (Atorvastatin Calcium) 40 Mg Tablet 40 Mg PO QHS Aspirin 81 Mg Tab.chew 81 Mg PO DAILY I have reviewed the current psychotropics carefully including drug interactions. Risk benefit ratio favors no change other than as noted in my dictated progress note. 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
--- NOTE | 2018-03-21 00:08 | NUR ---
Pt withdrawn to room at shift change, sitting quietly in his chair. Pt A/O x3, delusional- thinks his daughter is trying to poison him; pt is pleasantly confused, cooperative and compliant with meds and assessment.
[2018-03-21] MEDS: IPRATRPIUM/ALBUTEROL 0.5/2.5MG 3 ML NEBU. NEB SCH ×4 (05:33→19:55)
[2018-03-21 05:55] VITALS: BP 112/48
[2018-03-21 07:18] LABS: BASO % 1 % (0-3); EOS # 0.2 x10^3/uL (0.0-0.7); EOS % 4 % (0-3); HEMATOCRIT 32.3 % (39.0-53.0); HEMOGLOBIN 10.9 g/dL (13.0-17.5); LYMPH # 1.1 x10^3/uL (1.0-4.8); LYMPH % 19 % (24-48); MEAN CORPUSCULAR HEMOGLOBIN 33 pg (25-35); MEAN CORPUSCULAR HGB CONC 34 g/dL (31-37); MEAN CORPUSCULAR VOLUME 97 fL (79-100); MONO # 0.5 x10^3/uL (0.0-1.1); MONO % 9 % (0-9); NEUT # 3.8 x10^3uL (1.8-7.7); NEUT % 67 % (31-73); PLATELET COUNT 205 x10^3/uL (140-400); RED BLOOD COUNT 3.32 x10^6/uL (4.30-5.70); RED CELL DISTRIBUTION WIDTH 14.4 % (11.5-14.5); WHITE BLOOD COUNT 5.6 x10^3/uL (4.0-11.0)
[2018-03-21 07:25] LABS: ALBUMIN 3.3 g/dL (3.4-5.0); ALBUMIN/GLOBULIN RATIO 0.9 (1.0-1.7); CALCIUM 8.7 mg/dL (8.5-10.1); CREATININE 1.4 mg/dL (0.7-1.3); GFR 47.8; POTASSIUM 4.1 mmol/L (3.5-5.1); TOTAL BILIRUBIN 0.4 mg/dL (0.2-1.0)
[2018-03-21] MEDS: CALCIUM CARBONATE 500 MG TABLET PO SCH (07:47)
[2018-03-21] MEDS: LACTOBACILLUS RHAMNOSUS GG 1 CAPSULE. PO SCH ×2 (07:47→20:20)
[2018-03-21] MEDS: PANTOPRAZOLE 40 MG TABLET. PO SCH (07:47)
[2018-03-21] MEDS: MULTIVITAMIN I-VITE TABLET. PO SCH (07:47)
[2018-03-21] MEDS: FERROUS SULFATE 325 MG TABLET. PO SCH ×2 (07:47→20:20)
[2018-03-21] MEDS: CHOLECALCIFEROL (VITAMIN D3) 1,000 UNIT TABLET PO SCH (07:47)
[2018-03-21] MEDS: ASPIRIN 81 MG TAB.CHEW PO SCH (07:47)
[2018-03-21] MEDS: SPIRONOLACTONE 25 MG TABLET PO SCH (07:47)
[2018-03-21] MEDS: CETIRIZINE HCL 10 MG TABLET PO SCH (07:47)
--- NOTE | 2018-03-21 11:30 | NUR ---
Behavior Intervention Response and Plan: BIRP Note: Behavior: Assumed Care of patient, patient located in Dining Room at shift change. Patient exhibited the following behavior Calm, Delusions, Compliant. Brief assessment on rounds of vital signs, medication needs, lab studies, and pain. Treatment plan problems . Intervention: Patient assessed and the following interventions initiated safety checks 15 Minute Checks Cognitive Assessment , Head to toe Assessment , Medications. Response: After interactions and interventions patient responded in the following manner, Calm , Compliant ,Withdrawn. Continue to assess behaviors and condition will continue to monitor throughout the shift as needed. Patient educated on ADL's, and hand hygiene. 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 Continue to assess patient for changes in above assessment. Monitor for medication needs, pain, and safety concerns. Hourly rounding performed to ensure safe environment.
--- NOTE | 2018-03-21 15:00 | NUR ---
spoke with dtr on phone. stated pt had been doing well last two days. still taking meds and there was an anticipated dc on friday. a few minutes after the phone call, the pt came to the desk wearing outside coat and demanded he be released per the court order. attempted to redirect but pt stated we were violating the law and stormed back into room. no further outbursts.
[2018-03-21 15:57] VITALS: BP 108/65
[2018-03-21] MEDS: DONEPEZIL HCL 10 MG TABLET PO SCH (20:20)
[2018-03-21] MEDS: risperiDONE 0.5 MG TABLET. PO SCH (20:20)
[2018-03-21] MEDS: ATORVASTATIN CALCIUM 20 MG TABLET PO SCH (20:20)
--- NOTE | 2018-03-21 22:55 | PDOC ---
Exam Note: Musa Note: Please also refer to the separate dictated note~for this date of service dictated separately.~Patient seen individually. Discussed the patient with Nursing staff reviewed the chart.~Reviewed interim history and current functioning. Reviewed vital signs,~Labs/ Radiology~and current medications noted below. Continue current treatment with the changes noted in the dictated addendum note Assessment: Vital Signs: Vital Signs Date Time Temp Pulse Resp B/P (MAP) Pulse Ox O2 Delivery O2 Flow Rate FiO2 03/21/18 19:55 93 Room Air 03/21/18 15:57 98.0 76 18 108/65 (79) I&O Intake and Output 03/21/18 07:00 Intake Total 1200 ml Balance 1200 ml Intake Oral 1200 ml Labs: Laboratory Tests Test 03/21/18 06:49 White Blood Count 5.6 x10^3/uL (4.0-11.0) Red Blood Count 3.32 x10^6/uL (4.30-5.70) L Hemoglobin 10.9 g/dL (13.0-17.5) L Hematocrit 32.3 % (39.0-53.0) L Mean Corpuscular Volume 97 fL (79-100) Mean Corpuscular Hemoglobin 33 pg (25-35) Mean Corpuscular Hemoglobin Concent 34 g/dL (31-37) Red Cell Distribution Width 14.4 % (11.5-14.5) Platelet Count 205 x10^3/uL (140-400) Neutrophils (%) (Auto) 67 % (31-73) Lymphocytes (%) (Auto) 19 % (24-48) L Monocytes (%) (Auto) 9 % (0-9) Eosinophils (%) (Auto) 4 % (0-3) H Basophils (%) (Auto) 1 % (0-3) Neutrophils # (Auto) 3.8 x10^3uL (1.8-7.7) Lymphocytes # (Auto) 1.1 x10^3/uL (1.0-4.8) Monocytes # (Auto) 0.5 x10^3/uL (0.0-1.1) Eosinophils # (Auto) 0.2 x10^3/uL (0.0-0.7) Basophils # (Auto) 0.0 x10^3/uL (0.0-0.2) Sodium Level 136 mmol/L (136-145) Potassium Level 4.1 mmol/L (3.5-5.1) Chloride Level 102 mmol/L (98-107) Carbon Dioxide Level 28 mmol/L (21-32) Anion Gap 6 (6-14) Blood Urea Nitrogen 20 mg/dL (8-26) Creatinine 1.4 mg/dL (0.7-1.3) H Estimated GFR (Cockcroft-Gault) 47.8 BUN/Creatinine Ratio 14 (6-20) Glucose Level 102 mg/dL (70-99) H Calcium Level 8.7 mg/dL (8.5-10.1) Total Bilirubin 0.4 mg/dL (0.2-1.0) Aspartate Amino Transferase (AST) 22 U/L (15-37) Alanine Aminotransferase (ALT) 17 U/L (16-63) Alkaline Phosphatase 72 U/L (46-116) Total Protein 7.0 g/dL (6.4-8.2) Albumin 3.3 g/dL (3.4-5.0) L Albumin/Globulin Ratio 0.9 (1.0-1.7) L Current Medications: Meds: Current Medications Calcium Carbonate/ Glycine (Oscal) 500 mg DAILY PO Last administered on 07:47; Start 03/07/18 at 09:00 Vitamin D (Vitamin D3) 1,000 unit DAILY PO Last administered on 03/21/18 07: 47; Start 03/07/18 at 09:00 Ferrous Sulfate (Feosol) 325 mg BID PO Last administered on 03/21/18 20:20; Start 03/06/18 at 21:00 Multivitamins/ Minerals (I-Marbin) 1 tab DAILY PO Last administered on 07:47; Start 03/07/18 at 09:00 Aspirin (Children'S Aspirin) 81 mg DAILYWBKFT PO Last administered on 07:47; Start 03/07/18 at 08:00 Donepezil HCl (Aricept) 10 mg QHS PO Last administered on 03/21/18 20:20; Start 03/06/18 at 21:00 Citalopram Hydrobromide (CeleXA) 10 mg DAILY PO Last administered on 11/6/18at 08:40; Start 03/07/18 at 09:00; Stop 03/17/18 at 16:35; Status DC Pantoprazole Sodium (Protonix) 40 mg DAILYAC PO Last administered on at 07:47; Start 03/07/18 at 07:30 Non-Formulary Medication (Potassium Gluconate ) 99 mg DAILY PO ; Start at 09:00; Stop 03/07/18 at 09:00; Status DC Quetiapine Fumarate (SEROquel) 25 mg HS PO Last administered on 03/08/18at 19: 48; Start 03/06/18 at 21:00; Stop 03/09/18 at 16:27; Status DC Spironolactone (Aldactone) 25 mg DAILY PO Last administered on 03/21/18at 07:47 ; Start 03/07/18 at 09:00 Non-Formulary Medication (Tiotropium [place] (Spiriva)) 18 mcg DAILY IH ; Start 03/07/18 at 09:00; Stop 03/07/18 at 09:00; Status DC Acetaminophen (Tylenol) 650 mg PRN Q6HRS PRN PO PAIN / TEMP; Start 03/06/18 at 20:30 Multi-Ingredient Ointment (Analgesic [place]) 1 ema PRN QID PRN TP MUSCLE PAIN; Start 03/06/18 at 20:30 Al Hydroxide/Mg Hydroxide (Mylanta Plus Xs) 15 ml PRN AFTMEALHC PRN PO DYSPEPSIA; Start 03/06/18 at 20:30 Magnesium Hydroxide (Milk Of Magnesia) 2,400 mg PRN QHS PRN PO CONSTIPATION; Start 03/06/18 at 20:30 Albuterol/ Ipratropium (Duoneb) 3 ml RTQID NEB Last administered on 03/21/18at 19:55; Start 03/07/18 at 08:00 Influenza Virus Vaccine (Afluria Trivalent [id number] Syringe) 0.5 ml ONCE ONCE VAX IM ; Start 03/07/18 at 09:00; Stop 03/07/18 at 09:01; Status DC Atorvastatin Calcium (Lipitor) 40 mg QHS PO Last administered on 03/21/18at 20: 20; Start 03/07/18 at 21:00 Lisinopril (Prinivil) 5 mg BID PO Last administered on 03/12/18at 07:56; Start 03/07/18 at 09:00; Stop 03/13/18 at 15:16; Status DC Ondansetron HCl (Zofran Odt) 4 mg PRN Q8HRS PRN PO NAUSEA/VOMITING; Start at 15:30 Trimethoprim/ Sulfamethoxazole (Bactrim Ds) 1 tab BID PO Last administered on 03/09/18at 07:59; Start 03/09/18 at 09:00; Stop 03/09/18 at 14:08; Status DC Amoxicillin/ Clavulanate Potassium (Augmentin 500/ 125mg) 1 tab BID PO Last administered on 03/19/18at 08:15; Start 03/09/18 at 21:00; Stop 03/19/18 at 20: 59; Status DC Cetirizine HCl (ZyrTEC) 10 mg DAILY PO Last administered on 03/21/18at 07:47; Start 03/09/18 at 15:00 Vitamin D (Vitamin D3) 50,000 unit WEEKLY PO Last administered on 03/16/18at 09: 24; Start 03/09/18 at 15:00 Lactobacillus Rhamnosus (Culturelle) 1 cap BID PO Last administered on at 20:20; Start 03/09/18 at 21:00 Quetiapine Fumarate (SEROquel) 37.5 mg HS PO Last administered on 03/09/18at 20 :37; Start 03/09/18 at 21:00; Stop 03/10/18 at 16:38; Status DC Quetiapine Fumarate (SEROquel) 50 mg QHS PO Last administered on 03/12/18at 20: 10; Start 03/10/18 at 21:00; Stop 03/13/18 at 16:35; Status DC Risperidone (RisperDAL) 0.25 mg HS PO Last administered on 03/15/18at 19:34; Start 03/13/18 at 21:00; Stop 03/16/18 at 16:33; Status DC Risperidone (RisperDAL) 0.5 mg HS PO Last administered on 03/21/18at 20:20; Start 03/16/18 at 21:00 Fluvoxamine Maleate (Luvox) 25 mg HS PO Last administered on 03/19/18at 19:27; Start 03/17/18 at 21:00; Stop 03/19/18 at 22:00; Status DC Fluvoxamine Maleate (Luvox) 50 mg HS PO Last administered on 03/21/18at 20:20; Start 03/20/18 at 21:00 Olanzapine (ZyPREXA ZYDIS) 2.5 mg PRN Q2HR PRN PO ANXIETY / AGITATION; Start 03/19/18 at 18:15 Active Scripts Active Reported I-Marbin Tablet (Vit A,C & E/Lutein/Minerals) 1 Each Tablet 1 Each PO Spironolactone 25 Mg Tablet 25 Mg PO DAILY Spiriva (Tiotropium [place]) 18 Mcg Cap.w.dev 18 Mcg IH DAILY Seroquel (Quetiapine Fumarate) 25 Mg Tablet 25 Mg PO HS Potassium Gluconate 99 Mg Tablet 99 Mg PO DAILY Prilosec Otc (Omeprazole Magnesium) 20 Mg Tablet.dr 40 Mg PO DAILY Ferrous Sulfate 325 Mg Tablet 325 Mg PO BID Lexapro (Escitalopram Oxalate) 5 Mg Tablet 5 Mg PO DAILY Aricept (Donepezil Hcl) 10 Mg Tablet 10 Mg PO HS Vitamin D3 (Cholecalciferol (Vitamin D3)) 1,000 Unit Tablet 1,000 Unit PO DAILY Captopril 12.5 Mg Tablet 12.5 Mg PO TID Calcium (Calcium Carbonate) 500 Mg Tablet 500 Mg PO DAILY Lipitor (Atorvastatin Calcium) 40 Mg Tablet 40 Mg PO QHS Aspirin 81 Mg Tab.chew 81 Mg PO DAILY I have reviewed the current psychotropics carefully including drug interactions. Risk benefit ratio favors no change other than as noted in my dictated progress note. 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
--- NOTE | 2018-03-21 23:26 | NUR ---
Pt withdrawn to room at shift change. Pt A/O x2 at this time, pleasant this evening, no further agitation thus far this evening. Pt cooperative & compliant w/meds & assessment.
[2018-03-22] MEDS: IPRATRPIUM/ALBUTEROL 0.5/2.5MG 3 ML NEBU. NEB SCH ×2 (05:33→09:54)
[2018-03-22 07:07] VITALS: BP 113/63
[2018-03-22] MEDS: CHOLECALCIFEROL (VITAMIN D3) 1,000 UNIT TABLET PO SCH (07:43)
[2018-03-22] MEDS: CALCIUM CARBONATE 500 MG TABLET PO SCH (07:43)
[2018-03-22] MEDS: PANTOPRAZOLE 40 MG TABLET. PO SCH (07:43)
[2018-03-22] MEDS: CETIRIZINE HCL 10 MG TABLET PO SCH (07:43)
[2018-03-22] MEDS: SPIRONOLACTONE 25 MG TABLET PO SCH (07:44)
[2018-03-22] MEDS: ASPIRIN 81 MG TAB.CHEW PO SCH (07:44)
[2018-03-22] MEDS: FERROUS SULFATE 325 MG TABLET. PO SCH (07:44)
[2018-03-22] MEDS: MULTIVITAMIN I-VITE TABLET. PO SCH (07:44)
[2018-03-22] MEDS: LACTOBACILLUS RHAMNOSUS GG 1 CAPSULE. PO SCH (07:44)
--- NOTE | 2018-03-22 09:56 | NUR ---
Behavior Intervention Response and Plan: BIRP Note: Behavior: Assumed Care of patient, patient located in Dining Room at shift change. Patient exhibited the following behavior Calm, Delusions, Compliant. Brief assessment on rounds of vital signs, medication needs, lab studies, and pain. Treatment plan problems . Intervention: Patient assessed and the following interventions initiated safety checks 15 Minute Checks Cognitive Assessment , Head to toe Assessment , Medications. Response: After interactions and interventions patient responded in the following manner, Calm , Compliant ,Withdrawn. Continue to assess behaviors and condition will continue to monitor throughout the shift as needed. Patient educated on ADL's, and hand hygiene. 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 Continue to assess patient for changes in above assessment. Monitor for medication needs, pain, and safety concerns. Hourly rounding performed to ensure safe environment.
--- NOTE | 2018-03-22 10:42 | EKG ---
[address] [address] Test Date: 2018-03-22 Test Time: 10:34:58 Pat Name: SHANTI WILSON Department: Room: [facility] 1 Gender: M Match Up Worker: CARROLL : [id number] Requested By: ROBERTO RUSSO Order Number: [id number] Reading MD: George Zaragoza MD Measurements Intervals [place] Rate: 136 P: 90 DC: 116 QRS: -58 QRSD: 130 T: -158 QT: 312 QTc: 473 Interpretive Statements PROBABLE SINUS TACHYCARDIA LAFB Electronically Signed On 03-24-2018 10:10:52 VIDEO ARCADE MANAGER by George Zaragoza MD
[2018-03-22] MEDS ORDERED: ACET325T9 PO (11:55)
[2018-03-22] MEDS ORDERED: CETI10CA PO (11:56)
[2018-03-22] MEDS ORDERED: IPRA3AMP29 NEB (11:57)
[2018-03-22] MEDS ORDERED: CHOL500021 PO (11:57)
[2018-03-22] MEDS ORDERED: MAG355OR12 PO (11:59)
[2018-03-22] MEDS ORDERED: MAGN2400 PO (12:00)
[2018-03-22] MEDS ORDERED: OLAN5TAB5 PO (12:00)
[2018-03-22] MEDS ORDERED: ONDA4TAB10 PO (12:02)
[2018-03-22] MEDS ORDERED: PANT40TA3 PO (12:02)
[2018-03-22] MEDS ORDERED: FLUV50TA2 PO (12:03)
[2018-03-22] MEDS ORDERED: RISP0.5T24 PO (12:04)
--- NOTE | 2018-03-22 12:06 | PN ---
DATE: 03/20/2018 PSYCHIATRIC PROGRESS NOTE This late entry 03/20/2018 covers elements not covered in my initial note. SUBJECTIVE: Met with the patient in the evening. The patient slept 6-3/4 hours previous night. At night, he was irritable. During the day on 03/20/2018, he has been better, suddenly remains confused, withdrawn, still feels if someone calls him from the [employer], he left to go there. REVIEW OF SYSTEMS: No CV, , pulmonary, eye, ENT system symptoms on review. Reliability poor. MENTAL STATUS EXAM: Oriented to himself, situation. Insight, judgment, recent memory is impaired. Language function intact. Attention span short. Mood and affect somewhat withdrawn. LABORATORY DATA: Reviewed. IMPRESSION: Unchanged from initial note. PLAN: No change from initial note. May need to increase Luvox beyond current 50 mg at night. MAN Katlyn HERBERT MD DR: JAN/kristina JOB#: [id number] / [id number]
--- NOTE | 2018-03-22 13:44 | NUR ---
pt getting ready to receive nebulizer treatment by therapist when it was noted pt HR in 140's B/P 88/40 manual, sat 97% RA. Ekg done and pt in ST. Notified Dr Garibay. Dr lanier pt moved to ICU r/t history of SVT. 20g IV started RFA. Blood drawn per cardiology/sepsis protocol. Dr Barbour notified. Will see pt in am. Dtr Lucinda notified of transfer. Transferred via wc to ICU 4. report given to Natalie ESTRADA. Pt informed this nurse I didn't need to call his dtr because she was in care home and she didn't care about him anyway. pt has been compliant with meds and cares.
--- NOTE | 2018-03-22 17:30 | PN ---
DATE: 03/21/2018 PSYCHIATRIC PROGRESS NOTE This late entry 03/21/2018 covers elements not covered in my initial note. SUBJECTIVE: I met with the patient in the evening. The patient slept 7-1/4 hours previous night. I met with him at length in his room. Talks to himself, less paranoid. He was yelling in the evening, wanting to get out of "here." He is being transferred to [facility] next week. REVIEW OF SYSTEMS: No CV, , pulmonary, eye, ENT system symptoms on review, slightly hard of hearing. Reliability somewhat poor. MENTAL STATUS EXAM: Oriented to himself and situation. Speech has some latency, coherent. Abstraction fair, computation impaired, language function intact, attention span short. Mood and affect somewhat withdrawn. LABORATORY DATA: Reviewed. 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 Rest unchanged. PLAN: Continue Risperdal, Luvox along with Aricept for now. MAN Katlyn HERBERT MD DR: JAN/kristina JOB#: [id number] / [id number]
--- NOTE | 2018-03-22 18:50 | PDOC ---
Progress Note. Subjective: I was called by [facility] Unit staff regarding Rapid Response event regarding this patient. Staff reports patient suddenly developed tachycardia and hypotension, HR 142 bpm BP 88/60 97% on RA patient having mild dyspnea no chest pain. A review of his medical history vaguely references history of SVT occurrance in the past. Vagal maneuvers were ineffective, patient to be transferred to ICU. Objective: Vital Signs: Vital Signs Date Time Temp Pulse Resp B/P (MAP) Pulse Ox O2 Delivery O2 Flow Rate FiO2 03/22/18 09:54 96 Room Air 03/22/18 07:07 97.0 77 18 113/63 (80) I & O: Intake and Output 03/22/18 07:00 Intake Total 1320 ml Balance 1320 ml Intake Oral 1320 ml Labs: Laboratory Tests Test 03/21/18 06:49 03/22/18 11:40 White Blood Count 5.6 x10^3/uL (4.0-11.0) Red Blood Count 3.32 x10^6/uL (4.30-5.70) Hemoglobin 10.9 g/dL (13.0-17.5) Hematocrit 32.3 % (39.0-53.0) Mean Corpuscular Volume 97 fL (79-100) Mean Corpuscular Hemoglobin 33 pg (25-35) Mean Corpuscular Hemoglobin Concent 34 g/dL (31-37) Red Cell Distribution Width 14.4 % (11.5-14.5) Platelet Count 205 x10^3/uL (140-400) Neutrophils (%) (Auto) 67 % (31-73) Lymphocytes (%) (Auto) 19 % (24-48) Monocytes (%) (Auto) 9 % (0-9) Eosinophils (%) (Auto) 4 % (0-3) Basophils (%) (Auto) 1 % (0-3) Neutrophils # (Auto) 3.8 x10^3uL (1.8-7.7) Lymphocytes # (Auto) 1.1 x10^3/uL (1.0-4.8) Monocytes # (Auto) 0.5 x10^3/uL (0.0-1.1) Eosinophils # (Auto) 0.2 x10^3/uL (0.0-0.7) Basophils # (Auto) 0.0 x10^3/uL (0.0-0.2) Sodium Level 136 mmol/L (136-145) Potassium Level 4.1 mmol/L (3.5-5.1) Chloride Level 102 mmol/L (98-107) Carbon Dioxide Level 28 mmol/L (21-32) Anion Gap 6 (6-14) Blood Urea Nitrogen 20 mg/dL (8-26) Creatinine 1.4 mg/dL (0.7-1.3) Estimated GFR (Cockcroft-Gault) 47.8 BUN/Creatinine Ratio 14 (6-20) Glucose Level 102 mg/dL (70-99) Calcium Level 8.7 mg/dL (8.5-10.1) Total Bilirubin 0.4 mg/dL (0.2-1.0) Aspartate Amino Transf (AST/SGOT) 22 U/L (15-37) Alanine Aminotransferase (ALT/SGPT) 17 U/L (16-63) Alkaline Phosphatase 72 U/L (46-116) Total Protein 7.0 g/dL (6.4-8.2) Albumin 3.3 g/dL (3.4-5.0) Albumin/Globulin Ratio 0.9 (1.0-1.7) Lactic Acid Level 1.7 mmol/L (0.4-2.0) Assessment: Symptomatic tachyarrhythmia with history of SVT Hypotension Dyspnea Transfer to ICU for further evaluation and to r/o sepsis, CBC/CXR/UA/BCx2/ lactic acid/serial CE/CMP/EKG verbal orders were given. Cardiology Team consulted, RN notifies me Dr Severino is in the ICU and will see patient. ROBERTO RUSSO DO Mar 22, 2018 18:50
--- NOTE | 2018-03-23 12:02 | DS ---
DATE OF DISCHARGE: 03/22/2018 DISCHARGE SUMMARY/PSYCHIATRIC PROGRESS NOTE This late entry 03/22/2018 covers elements not covered in my initial note. REASON FOR ADMISSION: Please refer to the admission history for details. Briefly, the patient is an 87-year-old male referred from the [facility] [place] on account of increased confusion and agitation. The patient was getting messages that there was a capsule going to be sent for him reaching the street outside his independent living apartment to take him to the [facility] in [facility]. The patient walked outside close to the street. He was delusional and believed he had to get outside to be transported to a tube to get to DC to the [facility]. He was noncompliant with his medications according to the daughter. He had been having violent hallucinations and believed the mafia was after him. He was increasingly confused as well. He had failed outpatient psychiatric interventions. SIGNIFICANT FINDINGS AND CLINICAL COURSE: Following admission, the patient was seen daily individually by myself from a psychiatric standpoint, medical followup with Dr. Da Silva/Dr. Garibay. He did have short-term memory deficits, but otherwise was oriented to place and situation. He would frequently talk to himself, yelling at times and at other times quite withdrawn, but was fairly fixated that even though he is retired from the [employer], they needed him at the [facility] and if they called for him again, which they were, he would walk out again to wait for the tube to take him. Adjustments were made in his psychotropics and he seemed to respond to a combination of Aricept 10 mg at bedtime, Risperdal 0.5 mg at bedtime after he had failed Seroquel. He was also quite obsessive, ruminative, was placed on Luvox 50 mg at bedtime, Zyprexa use p.r.n. Gradually, he was showing some improvement in his psychosis, but at this stage, he developed cardiac arrhythmia and was transferred to the ICU per Dr. Garibay. REVIEW OF SYSTEMS: Prior to discharge on 03/22/2018, no CV, , pulmonary, eye, ENT system symptoms on review. MENTAL STATUS EXAMINATION: Oriented to himself and situation. Speech has some latency, often responses monosyllabic. Abstraction fair, computation impaired, language function intact, attention span short. Mood and affect somewhat withdrawn. No active suicidal or homicidal ideation prior to discharge. CONDITION AT DISCHARGE: Improved from a psychiatric standpoint. 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 Rest unchanged from admission. DISCHARGE MEDICATIONS: Please refer to the MRAD. DISCHARGE INSTRUCTIONS: Psychiatric medical followup in the ICU per Dr. Garibay. Time for discharge day management greater than 30 minutes. MAN Katlyn HERBERT MD DR: JAN/kristina JOB#: [id number] / [id number]
== END 2018-03-22 12:32 | disposition short-term general hospital (02) | DRG 57 ==
LOC: GEROPSY 17:56
PROVIDERS: ADMIT Psychiatry & Neurology Psychiatry; ATTEND Psychiatry & Neurology Psychiatry
DX: G30.9 Alzheimer's disease, unspecified (principal); F02.81 Dementia in other diseases classified elsewhere, unspecified severity, with behavioral disturbance; F01.51 Vascular dementia, unspecified severity, with behavioral disturbance; N39.0 Urinary tract infection, site not specified; I47.1 Supraventricular tachycardia; E55.9 Vitamin D deficiency, unspecified; F32.9 Major depressive disorder, single episode, unspecified; F41.9 Anxiety disorder, unspecified; F42.9 Obsessive-compulsive disorder, unspecified; F63.9 Impulse disorder, unspecified; I11.0 Hypertensive heart disease with heart failure; I50.9 Heart failure, unspecified; J44.9 Chronic obstructive pulmonary disease, unspecified; K21.9 Gastro-esophageal reflux disease without esophagitis; I95.9 Hypotension, unspecified; Z66 Do not resuscitate; J32.1 Chronic frontal sinusitis; J32.0 Chronic maxillary sinusitis; Z79.899 Other long term (current) drug therapy; Z91.14 Patient's other noncompliance with medication regimen; Z91.81 History of falling
CPT/HCPCS: 36415; 80053; 80061; 81001; 82306; 82607; 83036; 83540; 83550; 83605; 83735; 84436; 84443; 84480; 85025; 86592; 87086; 87186; 93005; 94640; J7620; 99285-25

== ENCOUNTER 2018-03-22 12:52 | Inpatient (IN) | payer MEDICARE, OTHER ==
[~2018-03-22] VITALS: Ht 170.2 cm; Wt 81.2 kg
[2018-03-22] VITALS (8 sets, daily range): BP systolic 93–107; BP diastolic 43–57
[~2018-03-22 12:52] MED LIST: ACET325T9 PO; ASPI-630 PO; ATOR40TA PO; CALC500T30 PO; CAPT12.52 PO; CETI10CA PO; CHOL10003 PO; CHOL500021 PO; DONE10TA61 PO; ESOM40CA PO; FERR325T14 PO; FLUV50TA2 PO; IPRA3AMP29 NEB; LEXAPRO5 MG PO; MAG355OR12 PO; MAGN2400 PO; OLAN5TAB5 PO; OMEP20TA63 PO; ONDA4TAB10 PO; PANT40TA3 PO; POTA99TA3 PO; QUET25TA5 PO; RISP0.5T24 PO; SPIR25TA5 PO; TIOT18CA IH; VIT1TABL32 PO; VIT1TABL8 PO
[2018-03-22 14:04] LABS: ALBUMIN 3.4 g/dL (3.4-5.0); ALBUMIN/GLOBULIN RATIO 0.9 (1.0-1.7); C REACTIVE PROTEIN 6.1 mg/L (0-3.3); CALCIUM 8.7 mg/dL (8.5-10.1); CREATININE 1.3 mg/dL (0.7-1.3); GFR 52.1; MAGNESIUM 2.3 mg/dL (1.8-2.4); POTASSIUM 4.7 mmol/L (3.5-5.1); TOTAL BILIRUBIN 0.3 mg/dL (0.2-1.0); TOTAL PROTEIN 7.3 g/dL (6.4-8.2)
[2018-03-22 14:10] LABS: BASO # 0.1 x10^3/uL (0.0-0.2); BASO % 1 % (0-3); EOS # 0.1 x10^3/uL (0.0-0.7); EOS % 3 % (0-3); HEMATOCRIT 34.1 % (39.0-53.0); HEMOGLOBIN 11.2 g/dL (13.0-17.5); LYMPH # 0.9 x10^3/uL (1.0-4.8); LYMPH % 18 % (24-48); MEAN CORPUSCULAR HEMOGLOBIN 32 pg (25-35); MEAN CORPUSCULAR HGB CONC 33 g/dL (31-37); MEAN CORPUSCULAR VOLUME 97 fL (79-100); MONO # 0.4 x10^3/uL (0.0-1.1); MONO % 8 % (0-9); NEUT # 3.6 x10^3uL (1.8-7.7); NEUT % 71 % (31-73); PLATELET COUNT 211 x10^3/uL (140-400); RED BLOOD COUNT 3.51 x10^6/uL (4.30-5.70); RED CELL DISTRIBUTION WIDTH 14.5 % (11.5-14.5); WHITE BLOOD COUNT 5.1 x10^3/uL (4.0-11.0)
--- NOTE | 2018-03-22 20:16 | RAD ---
Single view chest 03/22/2018 CLINICAL INDICATION: Tachycardia and hypotension. COMPARISON: CT chest 2010 FINDINGS: Hyperexpansion of both lungs. No pleural effusion, pneumothorax or focal consolidation. Tortuosity of the descending thoracic aorta. IMPRESSION: 1. No acute cardiopulmonary abnormality. 2. Emphysema. Electronically signed by: Yoni Horvath MD (03/22/2018 8:13 PM) [facility]
[2018-03-23] VITALS (8 sets, daily range): BP systolic 91–134; BP diastolic 37–57
[2018-03-23 06:22] LABS: ALBUMIN/GLOBULIN RATIO 0.9 (1.0-1.7); CALCIUM 8.5 mg/dL (8.5-10.1); CREATININE 1.3 mg/dL (0.7-1.3); GFR 52.1; POTASSIUM 4.3 mmol/L (3.5-5.1); TOTAL BILIRUBIN 0.5 mg/dL (0.2-1.0); TOTAL PROTEIN 6.3 g/dL (6.4-8.2)
[2018-03-23 06:26] LABS: BASO # 0.1 x10^3/uL (0.0-0.2); BASO % 1 % (0-3); EOS # 0.2 x10^3/uL (0.0-0.7); EOS % 4 % (0-3); HEMATOCRIT 30.4 % (39.0-53.0); HEMOGLOBIN 10.1 g/dL (13.0-17.5); LYMPH # 1.1 x10^3/uL (1.0-4.8); LYMPH % 18 % (24-48); MEAN CORPUSCULAR HEMOGLOBIN 32 pg (25-35); MEAN CORPUSCULAR HGB CONC 33 g/dL (31-37); MEAN CORPUSCULAR VOLUME 97 fL (79-100); MONO # 0.6 x10^3/uL (0.0-1.1); MONO % 10 % (0-9); NEUT # 4.4 x10^3uL (1.8-7.7); NEUT % 68 % (31-73); PLATELET COUNT 194 x10^3/uL (140-400); RED BLOOD COUNT 3.15 x10^6/uL (4.30-5.70); RED CELL DISTRIBUTION WIDTH 14.6 % (11.5-14.5); WHITE BLOOD COUNT 6.4 x10^3/uL (4.0-11.0)
[2018-03-23] MEDS ORDERED: ACETAMINOPHEN 325 MG TABLET PO PRN (10:15)
[2018-03-23] MEDS ORDERED: MAG HYDROX/AL HYDROX/SIMETH 30 ML ORAL.SUSP PO PRN (10:15)
[2018-03-23] MEDS ORDERED: FERROUS SULFATE 325 MG TABLET. PO SCH (10:30)
[2018-03-23] MEDS ORDERED: PANTOPRAZOLE 40 MG TABLET. PO SCH (10:30)
[2018-03-23] MEDS ORDERED: CHOLECALCIFEROL (VITAMIN D3) 1,000 UNIT TABLET PO SCH (10:30)
[2018-03-23] MEDS ORDERED: MULTIVITAMIN I-VITE TABLET. PO SCH (10:30)
[2018-03-23] MEDS ORDERED: ONDANSETRON ODT 4 MG TAB.RAPDIS PO PRN (10:30)
[2018-03-23] MEDS ORDERED: SPIRONOLACTONE 25 MG TABLET PO SCH (10:30)
[2018-03-23] MEDS ORDERED: ASPIRIN 81 MG TAB.CHEW PO SCH (10:30)
[2018-03-23] MEDS ORDERED: CHOLECALCIFEROL (VITAMIN D3) 50,000 UNIT CAPSULE PO SCH (10:30)
[2018-03-23] MEDS ORDERED: MAGNESIUM HYDROXIDE 2,400 MG/30 ML ORAL.SUSP. PO PRN (10:45)
[2018-03-23] MEDS ORDERED: IPRATRPIUM/ALBUTEROL 0.5/2.5MG 3 ML NEBU. ONE (10:54)
--- NOTE | 2018-03-23 11:00 | HP ---
ADMIT DATE: 03/23/2018 HISTORY OF PRESENT ILLNESS: The patient is an 87-year-old male patient, who was at the [facility] on account of increasing confusion, being agitated, reportedly had walked outside from his independent living apartment close to the street, was delusional, thinks he had to get to the street to get into transportation to go to the [facility] and was difficult to direct and has been noncompliant with his medication. The confusion has been worsening. In the evening, his behavior been deemed dangerous, unmanageable at the [facility] and referred to the Emergency Room of [facility] and then sent to [facility]. Apparently had rapid response event regarding this patient as he suddenly developed tachycardia and hypotension his heart rate went up to 142 beats per minute, blood pressure down to 88/60. He also reported having dyspnea, but no chest pain. PAST MEDICAL HISTORY: He has a vague reference to previous episode of SVT before, vagal maneuver were ineffective and therefore the patient was transferred to the ICU and apparently upon arrival the patient's heart rate was back to normal. He was admitted to the ICU for symptomatic tachyarrhythmia with history of SVT, hypertension, dyspnea. On arrival to the ICU, the patient looked well and was clearly in no apparent respiratory distress. His heart rate was only 83, blood pressure was 101/43, temperature was 97.9, respiratory rate was 20 and his oxygen saturation was 94% on room air. He was admitted, has had lab work done and we did consult the cardiology team. PAST MEDICAL HISTORY: Significant for hypertension, chronic obstructive pulmonary disease, congestive heart failure, gastroesophageal reflux disease, GI bleed, history of frontotemporal dementia, and history of supraventricular tachycardia. PAST PSYCHIATRIC HISTORY: Significant for dementia. ALLERGIES: He has no known drug allergies. FAMILY HISTORY: Noncontributory. SOCIAL HISTORY: He apparently was in the [employer] for 23 years and then worked at the [employer] for about 20 years before shelter. He does not drink alcohol or use any recreational drugs. He is currently at [facility]. MEDICATIONS: He is currently on following medications: He is on cetirizine 10 mg once a day, Aricept 10 mg at bedtime, ipratropium bromide/albuterol inhaler 0.5-2.5 mg and 3 mL by nebulizer 4 times a day, ferrous sulfate 325 mg twice a day, atorvastatin calcium 40 mg at bedtime, spironolactone 25 mg daily, aspirin 81 mg once a day, Tylenol 650 mg every 4 hours, fluvoxamine maleate 50 mg at bedtime, olanzapine 2.5 mg every 2 hours, risperidone 0.5 mg at bedtime, calcium carbonate 500 mg daily, Maalox 15 mL after meals and at bedtime, milk of magnesia 30 mL p.o. daily p.r.n. for constipation, Zofran 4 mg every 8 hours, Protonix 40 mg daily, cholecalciferol 1000 international units once a day and vitamin D 50,000 international units once a week. He is on multivitamin with mineral 1 tablet once a day. REVIEW OF SYSTEMS: As per history of present illness. PHYSICAL EXAMINATION: GENERAL: On arrival to the Emergency Room, the patient looked well and was clearly in no apparent respiratory distress, pale, but no jaundice, cyanosis, or thyromegaly. No jugular venous distention. No limb edema. VITAL SIGNS: His heart rate was 83, blood pressure was 101/43. His temperature was 97.9, respiratory rate 20, and oxygen saturation was 94% on room air. HEAD, EYES, EARS, NOSE, AND THROAT: Showed normocephalic, atraumatic. NECK: Supple. HEART: Showed normal first and second heart sounds with no gallop, rub or murmur. CHEST: Clear to auscultation. No crepitation or rhonchi. ABDOMEN: Distended, soft, nontender. NEUROLOGIC: He was demented, but without any obvious lateralizing sign. He is apparently able to ambulate without assistance or assistive devices. LABORATORY DATA: His lab work on arrival to the ICU showed a white cell count 5100, hemoglobin 11, hematocrit 34, MCV 97 and platelet count of 211,000 with normal manual differential. His chemistry showed a serum sodium 138, potassium 4.7, chloride 102, bicarbonate 30, anion gap of 6, BUN 20, creatinine was 1.3, estimated GFR was 52 mL per minute. His glucose 106, calcium was 8.7, magnesium was 2.3. Total bilirubin, AST, ALT, alkaline phosphatase were normal. His troponin was less than 0.017. CK was 125. Beta natriuretic peptide was 385. Total protein was 7.3, albumin 3.4. His prothrombin time was 10.4, INR of 1. His chest x-ray showed that he has hyperextension of both lungs. No pleural effusion, pneumothorax or focal consolidation. The descending thoracic aorta is tortuous. IMPRESSION: The patient has no acute cardiopulmonary abnormality and he has emphysema. He has had an EKG, which showed that the patient was in sinus rhythm with a heart rate of 73 beats per minute, left axis deviation. The patient will be monitored. We will consult the cardiology team and we will decide on further management accordingly. MIGUEL MALIK MD DR: PAUL/kristina JOB#: [id number] / [id number]
[2018-03-23] MEDS ORDERED: IPRATRPIUM/ALBUTEROL 0.5/2.5MG 3 ML NEBU. NEB SCH (13:00)
--- NOTE | 2018-03-23 13:06 | DISCH ---
DISCHARGE ORDERS CONDITION AT DISCHARGE: Stable Code Status: DNR/DNI POST DISCHARGE ORDERS: ACTIVITY ORDERS: No restrictions, Avoid exertion WEIGHT BEARING STATUS: Full weight bearing TREATMENT/EQUIPMENT ORDERS: ADAPTIVE EQUIPMENT NEEDED: Walker DISCHARGE MEDICATIONS: Home Meds Reported Medications Risperidone (RISPERDAL) 0.5 Mg Tablet, 0.5 MG PO HS for delusions, TAB 03/22/18 Fluvoxamine Maleate (FLUVOXAMINE MALEATE) 50 Mg Tablet, 50 MG PO HS for OCD 03/22/18 Pantoprazole Sodium (PROTONIX) 40 Mg Tablet.dr, 40 MG PO DAILY07 for GERD 03/22/18 Ondansetron (ZOFRAN ODT) 4 Mg Tab.rapdis, 4 MG PO PRN Q8HRS PRN for NAUSEA/ VOMITING 03/22/18 Olanzapine (ZYPREXA ZYDIS) 5 Mg Tab.rapdis, 2.5 MG PO PRN Q2HR PRN for ANXIETY / AGITATION, TAB 03/22/18 Magnesium Hydroxide (MILK OF MAGNESIA) 2,400 Mg/10 Ml Oral.susp, 2400 MG PO PRN QHS PRN for CONSTIPATION 03/22/18 Mag Hydrox/Al Hydrox/Simeth (MAALOX MAXIMUM STRENGTH SUSP) 355 Ml Oral.susp, 15 ML PO PRN AFTMEALHC PRN for DYSPEPSIA, LIQUID 03/22/18 Ipratropium/Albuterol Sulfate (DUONEB 0.5-3(2.5) MG/3 ML) 3 Ml Ampul.neb, 3 ML NEB QID for SOA 03/22/18 Cholecalciferol (Vitamin D3) (D3-50) 50,000 Unit Capsule, 79413 UNIT PO WEEKLY for supplement 03/22/18 Cetirizine Hcl (ZYRTEC) 10 Mg Capsule, 10 MG PO DAILY PRN for ALLERGIES, CAP 03/22/18 Acetaminophen (TYLENOL) 325 Mg Tablet, 650 MG PO PRN Q6HRS PRN for pa 03/22/18 Vit A,C & E/Lutein/Minerals (I-KARTIK TABLET) 1 Each Tablet, 1 EACH PO, TAB 03/06/18 Spironolactone (SPIRONOLACTONE) 25 Mg Tablet, 25 MG PO DAILY for CHF 03/06/18 Ferrous Sulfate (FERROUS SULFATE) 325 Mg Tablet, 325 MG PO BID for supplement 03/06/18 Donepezil Hcl (ARICEPT) 10 Mg Tablet, 10 MG PO HS for memory 03/06/18 Cholecalciferol (Vitamin D3) (VITAMIN D3) 1,000 Unit Tablet, 1000 UNIT PO DAILY for supplement 03/06/18 Calcium Carbonate (CALCIUM) 500 Mg Tablet, 500 MG PO DAILY for supplement, TAB 03/06/18 Atorvastatin Calcium (LIPITOR) 40 Mg Tablet, 40 MG PO QHS for FOR CHOLESTEROL 03/06/18 Aspirin (ASPIRIN) 81 Mg Tab.chew, 81 MG PO DAILY for heart health, TAB 03/06/18 Discontinued Reported Medications Tiotropium [place] (SPIRIVA) 18 Mcg Cap.w.dev, 18 MCG IH DAILY for COPD 03/06/18 Quetiapine Fumarate (SEROQUEL) 25 Mg Tablet, 25 MG PO HS, TAB 03/06/18 Potassium Gluconate (POTASSIUM GLUCONATE) 99 Mg Tablet, 99 MG PO DAILY for supplement, TAB 03/06/18 Omeprazole Magnesium (PRILOSEC OTC) 20 Mg Tablet.dr, 40 MG PO DAILY for GERD 03/06/18 Escitalopram Oxalate (LEXAPRO) 5 Mg Tablet, 5 MG PO DAILY for ANTI-DEPRESSANT 03/06/18 Captopril (CAPTOPRIL) 12.5 Mg Tablet, 12.5 MG PO TID for HTN 03/06/18 MIGUEL MALIK MD Mar 23, 2018 13:06
--- NOTE | 2018-03-23 14:30 | DS ---
DATE OF DISCHARGE: 03/23/2018 HOSPITAL COURSE: The patient is an 87-year-old male patient who was at the [facility] on account of increasing confusion, being agitated, reportedly had walked outside from his independent living apartment close to the street, was delusional, thinks he had to get to street get to the transportation go to the [facility], was difficult to direct and was admitted for inpatient psychiatric stabilization. Apparently, while at the [facility], he developed tachycardia and hypotension. The heart rate was 142 beats per minute. His blood pressure dropped down to 88 and he was reportedly somewhat hypoxic. He was transferred to the ICU. By the time he arrived there, his heart rate was normal. His blood pressure was normal. His oxygen also has normalized. He was seen in consultation by the Cardiology team and did not recommend any further evaluation and as the patient remained hemodynamically stable, a decision was made to discharge him to [facility] long-term as he is unable to live independently and requires lots of assistance. PHYSICAL EXAMINATION: GENERAL: When I examined him this afternoon, he looked well and was clearly in no apparent respiratory distress. No pallor, jaundice, cyanosis, lymphadenopathy or thyromegaly. No jugular venous distension. No limb edema. VITAL SIGNS: His heart rate was 73, blood pressure was 107/56, temperature was 97.9, respiratory rate was 18 and oxygen saturation was 93% on room air. HEAD, EYES, EARS, NOSE AND THROAT: Normocephalic, atraumatic. NECK: Supple. HEART: Showed normal first and second heart sounds with no gallop, rub or murmur. CHEST: Clear to auscultation. No crepitation or rhonchi. ABDOMEN: Distended, soft, nontender. No guarding or rigidity. No organomegaly. Hernial orifice intact. Bowel sounds normal. NEUROLOGIC: He is demented, but without any obvious lateralizing sign. LABORATORY DATA: Her lab work this morning showed a white cell count of 6400, hemoglobin 10, hematocrit 30, MCV 97 and platelet count of 194,000. His chemistry showed a serum sodium 140, potassium 4.3, chloride 104, bicarbonate 29, anion gap of 7, BUN 21, creatinine 1.3, estimated GFR was 52 mL per minute, his glucose was 94, calcium was 8.5. Total bilirubin, AST, ALT, alkaline phosphatase were normal. His total protein was 6.3, albumin 3. His prothrombin time was 10.4, INR of 1. DISCHARGE MEDICATIONS: He was discharged to [facility] to continue on following medication: Acetaminophen 650 mg every 6 hours, aspirin 81 mg once a day, atorvastatin calcium 40 mg at bedtime, calcium carbonate 500 mg daily, cetirizine for Zyrtec 10 mg once a day, vitamin D3 1000 International Units once a day, cholecalciferol 50,000 units weekly, Aricept 10 mg once a day, ferrous sulfate 325 mg twice a day, fluvoxamine maleate 50 mg at bedtime and ipratropium bromide, albuterol sulfate 3 mL by nebulizer 4 times a day. He is on Mylanta 15 mL after meals and at bedtime. Milk of magnesia 30 mL p.o. daily p.r.n. constipation, olanzapine for Zyprexa Zydis 2.5 mg every 2 hours as needed for anxiety and agitation, ondansetron 4 mg every 8 hours as needed, Protonix 40 mg once a day, risperidone 0.5 mg at bedtime for the delusion, spironolactone 25 mg daily and vitamin A, multivitamin 1 tablet once a day. FINAL DISCHARGE DIAGNOSES: Short-lived supraventricular tachycardia, hypertension, chronic obstructive pulmonary disease, congestive heart failure, gastroesophageal reflux disease, history of gastrointestinal bleed, history of frontotemporal dementia. MIGUEL MALIK MD DR: PAUL/kristina JOB#: [id number] / [id number]
[2018-03-23] MEDS ORDERED: ATORVASTATIN CALCIUM 20 MG TABLET PO SCH (21:00)
[2018-03-23] MEDS ORDERED: DONEPEZIL HCL 10 MG TABLET PO SCH (21:00)
[2018-03-23] MEDS ORDERED: risperiDONE 0.5 MG TABLET. PO SCH (21:00)
[2018-03-24] MEDS ORDERED: CETIRIZINE HCL 10 MG TABLET PO PRN (09:00)
[2018-03-24] MEDS ORDERED: CALCIUM CARBONATE 500 MG TABLET PO SCH (10:30)
== END 2018-03-23 12:44 | DRG 309 ==
LOC: ICU 12:52
PROVIDERS: ADMIT Neuromusculoskeletal Medicine & OMM; ATTEND Neuromusculoskeletal Medicine & OMM
DX: I47.1 Supraventricular tachycardia (principal); E44.0 Moderate protein-calorie malnutrition; F03.90 Unspecified dementia, unspecified severity, without behavioral disturbance, psychotic disturbance, mood disturbance, and anxiety; I11.0 Hypertensive heart disease with heart failure; J44.9 Chronic obstructive pulmonary disease, unspecified; R09.02 Hypoxemia; K21.9 Gastro-esophageal reflux disease without esophagitis; I50.9 Heart failure, unspecified; Z79.899 Other long term (current) drug therapy
CPT/HCPCS: 36415; 71045; 80053; 82550; 83605; 83735; 83880; 84443; 84484; 85025; 85610; 86140; 87040; 87641; 94640; J7620